=== PATIENT | female | born 1965 | race Caucasian/White ===

== ENCOUNTER → 2017-04-07 12:48 | Outpatient (POV) | payer BC, SELFPAY | PROVIDERS: PCP Internal Medicine | DX: Z00.00 Encounter for general adult medical examination without abnormal findings (principal) ==

== ENCOUNTER → 2017-04-23 09:56 | Outpatient (CLI) | payer BC, SELFPAY ==
[2017-04-23 13:56] LABS: Basophils % 0.8 % (0.1-2.0); Eosinophils # 0.1 K/mm3 (0.0-0.4); Eosinophils % 2.4 % (0.1-12.0); Hematocrit 39.4 % (37.0-47.0); Hemoglobin 12.4 g/dL (12.2-16.2); Lymphocytes # 1.3 K/mm3 (0.7-4.5); Lymphocytes % 34.1 K/mm3 (10-50); Mean Corpuscular HGB Conc 31.4 g/dL (31.8-35.4); Mean Corpuscular Volume 92.3 fl (81-99); Monocytes # 0.3 K/mm3 (0.1-1.0); Monocytes % 7.6 % (1.7-9.3); Neutrophils % 55.2 % (37.0-80.0); Platelet Count 230 K/mm3 (142-424); Red Blood Count 4.27 M/mm3 (4.20-5.40); Red Cell Distribution Width 13.1 % (11.5-17.5); White Blood Count 3.7 K/mm3 (4.8-10.8)
[2017-04-23 15:09] LABS: Alanine Aminotransferase 22 U/L (12-78); Albumin Level 3.7 gm/dL (3.4-5.0); Alkaline Phosphatase 87 U/L (46-116); Anion Gap 11.6 mEq/L (5-15); Aspartate Amino Transferase 15 U/L (15-37); Bilirubin,Total 0.3 mg/dL (0.2-1.0); Blood Urea Nitrogen 16 mg/dL (7-18); Calcium 8.9 mg/dL (8.5-10.1); Carbon Dioxide 31 mmol/L (21.0-32.0); Chloride 104 mmol/L (98-107); Creatinine,Serum 0.78 mg/dL (0.55-1.02); Estimated Glomerular Filt Rate 77 ml/min (>60); Free T4 (Free Thyroxine) 1.02 ng/dl (0.76-1.46); GFR (African American) 93 ML/MIN (>60); Globulin 3.8 gm/dl (1.3-3.2); Glucose 101 mg/dL (74-106); Potassium 4.6 mmoL/L (3.5-5.1); Sodium 142 mmol/L (136-145); Thyroid Stimulating Hormone 2.45 uIU/ml (0.358-3.740); Total Protein,Serum 7.5 gm/dL (6.4-8.2)
== END ==
PROVIDERS: Visit Provider Emergency Medicine
DX: R68.89 Other general symptoms and signs (principal)
CPT/HCPCS: 80053; 84439; 84443; 85025

== ENCOUNTER → 2018-01-04 10:17 | Outpatient (CLI) | payer BC, SELFPAY ==
--- NOTE | 2018-01-04 10:20 | MM_ITS ---
MM Dig screening mamm BI w/CAD ORDERING PHYSICIAN : Luca Ortega MD PATIENT AGE: 52 years GENDER: Female COMPARISON: December 20162014 INDICATION: ITS.REASON: Screening routine screening mammogram. Patient Does taking estrogen supplement. No new complaints. Noncontributory family history. TECHNIQUE: Standard CC and MLO images were obtained. R2 CAD reviewed. FINDINGS: Moderate density breast with no new areas of significant concern. Progressive fatty replacement since 2015 mammogram Today's study show no No dominant mass nor suspicious calcifications either breast. Mild asymmetry with no significant new areas of concern either breast. Bilateral follow-up in one year recommended. IMPRESSION: Stable bilateral mammogram. No study new findings. BI-RADS Category: 1 Negative RECOMMENDED FOLLOW-UP: 1YR 1 YEAR FOLLOW-UP (A letter has been sent to the patient regarding results of the study.)
== END ==
PROVIDERS: PCP Emergency Medicine; Visit Provider Obstetrics & Gynecology
DX: Z12.31 Encounter for screening mammogram for malignant neoplasm of breast (principal)
CPT/HCPCS: 77067

== ENCOUNTER → 2018-04-19 17:05 | Outpatient (CLI) | payer BC, SELFPAY ==
[2018-04-19 18:28] LABS: Basophils % 0.9 % (0.1-2.0); Eosinophils # 0.1 K/mm3 (0.0-0.4); Eosinophils % 1.7 % (0.1-12.0); Hematocrit 38.5 % (37.0-47.0); Hemoglobin 12.7 g/dL (12.2-16.2); Lymphocytes # 1.3 K/mm3 (0.7-4.5); Lymphocytes % 35.4 % (10-50); Mean Corpuscular Hemoglobin 29.9 pg (27.0-31.2); Mean Corpuscular Volume 90.7 fl (81-99); Monocytes # 0.3 K/mm3 (0.1-1.0); Monocytes % 8.5 % (1.7-9.3); Neutrophils # 1.9 K/mm3 (1.8-7.8); Neutrophils % 53.5 % (37.0-80.0); Platelet Count 188 K/mm3 (142-424); Red Blood Count 4.25 M/mm3 (4.20-5.40); Red Cell Distribution Width 13.5 % (11.5-17.5); White Blood Count 3.6 K/mm3 (4.8-10.8)
[2018-04-19 19:41] LABS: Anion Gap 11.4 mEq/L (5-15); Blood Urea Nitrogen 16 mg/dL (7-18); Carbon Dioxide 30 mmol/L (21.0-32.0); Chloride 105 mmol/L (98-107); Creatinine,Serum 0.77 mg/dL (0.55-1.02); Estimated Glomerular Filt Rate 78 ml/min (>60); Free T4 (Free Thyroxine) 1.03 ng/dl (0.76-1.46); GFR (African American) 95 ML/MIN (>60); Glucose 127 mg/dL (74-106); Potassium 4.4 mmoL/L (3.5-5.1); Sodium 142 mmol/L (136-145); Thyroid Stimulating Hormone 1.53 uIU/ml (0.358-3.740)
== END ==
PROVIDERS: Visit Provider Emergency Medicine
DX: I10 Essential (primary) hypertension (principal)
CPT/HCPCS: 80048; 84439; 84443; 85025

== ENCOUNTER → 2018-05-05 08:58 | Outpatient (CLI) | payer BC, SELFPAY ==
--- NOTE | 2018-05-05 09:02 | US_ITS ---
US thyroid HISTORY: Trouble swallowing, thyroid nodule ITS.REASON: nodule ORDERING PHYSICIAN: Thomas Woods MD PATIENT AGE: 52 years Comparison: None FINDINGS: Right lobe: 4.7 x 1.6 x 1.6 cm. There is coarse echogenicity. A 4 mm hypoechoic nodule is present centrally. No suspicious dominant nodules evident Left lobe: 4.7 x 1.5 x 1.3 cm. A 6 x 7 mm hypoechoic nodule is present along the lower pole. Isthmus: Unremarkable IMPRESSION: Enlarged thyroid gland with heterogeneous echogenicity small bilateral benign-appearing nodules
--- NOTE | 2018-05-05 09:02 | FL_ITS ---
EXAM: Barium swallow/esophagram. INDICATION: ITS.REASON: dysphagia ORDERING PHYSICIAN: Thomas Woods MD PATIENT AGE: 52 years COMPARISON: None TECHNIQUE: In the upright position the patient was observed to swallow barium in both the AP and lateral view. The cervical esophagus was examined under fluoroscopy with images obtained. The patient was then placed prone in the right anterior oblique position and was observed to swallow barium with Valsalva technique . FLUOROSCOPY TIME: 41 seconds FINDINGS: There was no evidence of aspiration. There was normal peristalsis. No filling defects or mucosal abnormalities. No masses or strictures. No hiatal hernia evident IMPRESSION: Negative barium swallow.
== END ==
PROVIDERS: PCP Emergency Medicine; Visit Provider Emergency Medicine
DX: E04.1 Nontoxic single thyroid nodule (principal); R13.10 Dysphagia, unspecified
CPT/HCPCS: 74220; 76536

== ENCOUNTER → 2018-05-19 07:59 | Outpatient (CLI) | payer BC, SELFPAY ==
--- NOTE | 2018-05-19 08:01 | CT_ITS ---
CT chest wo con HISTORY: Pulmonary nodule follow-up ITS.REASON: follow up on pulmonary nodules ORDERING PHYSICIAN: Thomas Woods MD PATIENT AGE: 52 years COMPARISON: 11/08/2017 Technique: Axial images obtained following the administration of 75 mL of Optiray 350 . Sagittal, and coronal reformatted images are also generated and reviewed. All CT scans at the facility use one or more dose reduction, viz: automated exposure control, ma/kV adjustment per patient size (including targeted exams where dose is matched to indication, i.e. head), or iterative reconstruction technique. FINDINGS: No mediastinal or hilar mass or adenopathy. There are mild biapical fibrotic changes. There is a noncalcified 4 mm nodule in the right apex posteriorly not significantly changed. Volume loss is present in the right middle lobe unchanged. Calcified granuloma right lower lobe unchanged there is a 5 mm noncalcified nodule in the right minor fissure unchanged. A 4 mm noncalcified nodule noted in the right lower lobe laterally unchanged. On the left there are fibrotic changes within the left lower lobe and lingula. Scattered small nodes are present in the axilla. Calcified nodes are present in the right hilum. Upper abdominal images are unremarkable. IMPRESSION: 1. Overall no significant change with no acute finding. 2. No change in the right-sided pulmonary nodules. Consider 12 month follow-up
== END ==
PROVIDERS: PCP Emergency Medicine; Visit Provider Emergency Medicine
DX: R91.1 Solitary pulmonary nodule (principal)
CPT/HCPCS: 71250

== ENCOUNTER → 2018-07-22 12:04 | Outpatient (CLI) | payer BC, SELFPAY ==
[2018-07-22 14:56] LABS: Free T4 (Free Thyroxine) 1.15 ng/dl (0.76-1.46); Thyroid Stimulating Hormone 1.58 uIU/ml (0.358-3.740)
[2018-07-23 18:04] LABS: Thyroid Peroxidase Antibodies 65 IU/mL (0-34)
[2018-07-25 03:11] LABS: Calcitonin <2.0 pg/mL (0.0-5.0)
[2018-07-27 06:22] LABS: Thyroid Stimulating Immunoglob <0.10 IU/L (0.00-0.55)
== END ==
PROVIDERS: Visit Provider Otolaryngology
DX: E04.1 Nontoxic single thyroid nodule (principal)
CPT/HCPCS: 36415; 82308; 84439; 84443; 84445; 86376

== ENCOUNTER → 2018-09-22 14:04 | Outpatient (CLI) | payer BC, SELFPAY ==
--- NOTE | 2018-09-22 14:06 | CA_ITS ---
APPROVED REPORT Bilateral Lower Extremity Venous Study for [employer]: MARISOL Indications Lower Extremity Pain: Right Lower Extremity Edema: Right Varicose Veins edema/right leg pain Risk Factors Hormone replacement therapy x several years. Patient had vein stripping of the right lower extremity approximately 1 year ago. Vein Imaging CFV (R): compressive, spontaneous, phasic, augmentation FEM (R): compressive, spontaneous, phasic, augmentation POP (R): compressive, spontaneous, phasic, augmentation PTV (R): compressive, spontaneous, phasic, augmentation GSV (R): compressive, spontaneous, phasic, augmentation Peroneals (R):Compressible GAS (R): Compressible Conclusion No evidence of DVT or superficial thrombophlebitis in the veins scanned of the right lower extremity. Electronically signed by : Ted Oconnor MD 09/22/2018 19:19:29
== END ==
PROVIDERS: PCP Emergency Medicine; Visit Provider Internal Medicine Cardiovascular Disease
DX: M79.604 Pain in right leg (principal); I10 Essential (primary) hypertension; R60.0 Localized edema
CPT/HCPCS: 93971

== ENCOUNTER → 2018-11-08 14:49 | Outpatient (CLI) | payer BC, SELFPAY ==
--- NOTE | 2018-11-08 14:50 | US_ITS ---
PROCEDURE: US THYROID CLINICAL INDICATION: thyroiditis COMPARISON: THY US thyroid from 05/05/2018 FINDINGS: Right lobe: Measures 1.7 x 4.6 x 1.4 centimeters with stable mild inhomogeneous echogenic appearance. The small mid hypoechoic nodule measures 3.3 millimeters and is stable. However today study describes 2 other nodules, 1 of which at the medial mid right thyroid lobe is isoechoic compared to the thyroid tissue with fairly well-defined margins without acoustic enhancement or shadowing and measures 7.2 by 6.3 millimeters in transverse diameter and height respectively. Also noted is a mid to lower posterior isoechoic nodule measuring 6.9 x 4.5 millimeters. Left lobe: Measures 1.4 x 4.5 x 1.2 centimeters stable mild inhomogeneous echogenic appearance. There is a stable posterior lower pole hypoechoic nodule measuring 6.2 x 5.8 millimeters respectively with smooth margins and without enhancement or shadowing. The remainder of the left thyroid lobe is normal and stable. Isthmus: 1.8 millimeters. Additional findings: IMPRESSION: Posterior left thyroid lobe nodule is stable and could be pedunculated thyroid nodule or parathyroid nodule. Right thyroid lobe shows punctate benign stable hypoechoic nodule in the midportion however there are 2 other solid nodules not described on the prior report, the left posterior lower pole nodule on the right could be pedunculated thyroid nodule or also related to parathyroid gland. These nodules are TR category 3, mildly suspicious and suggest follow-up at 6-12 months. Dictated by: Fransico Case 11/08/2018 16:06 Electronically signed by Fransico Case in [place] 11/08/2018 16:06
== END ==
PROVIDERS: PCP Emergency Medicine; Visit Provider Otolaryngology
DX: E06.3 Autoimmune thyroiditis (principal)
CPT/HCPCS: 76536

== ENCOUNTER → 2019-01-09 13:24 | Outpatient (CLI) | payer BC, SELFPAY ==
--- NOTE | 2019-01-09 13:26 | MM_ITS ---
PROCEDURE: MM DIG SCREENING MAMM BI W/CAD CLINICAL INDICATION: screening There is no personal or family history of breast cancer COMPARISON: [facility] DIG MAMM-SCREEN TASHA from 12/23/2015 [facility] DIG MAMM-SCREEN TASHA W/CAD from 12/24/2016 [facility] MM Dig screening mamm BI w/CAD from 01/04/2018 TECHNIQUE: Standard CC and MLO images were obtained. R2 CAD reviewed. FINDINGS: Scattered fibroglandular densities are seen throughout both breasts. There is slightly asymmetrically increased glandular elements in the central portion of the right breast, this is stable from previous studies. There is no suspicious lesion and no suspicious microcalcifications. IMPRESSION: Moderate diffuse breast density with no suspicious lesions seen BI-RAD Category: 1 Negative FOLLOW-UP: 1YR 1 Year Follow-up (A letter has been sent to the patient regarding results of the study.) Dictated by: Dr. Eric Domingo MD 01/10/2019 14:[address] Eric Domingo MD in [place] 01/10/2019 14:13
--- NOTE | 2019-01-09 13:26 | XR_ITS ---
PROCEDURE: XR DEXA AXIAL SKELETON CLINICAL HISTORY: SCREENING COMPARISON: No exams were available for comparison FINDINGS: L1-L4 density is 1.377 grams/centimeters sq with a T-score of 1.6. This is normal. Left femoral neck density is 0.998 grams/centimeters sq with a T-score -0.3 which is normal. IMPRESSION: Normal bone density with low fracture risk. Suggest follow-up exam January 2021 Dictated by: Ted Oconnor MD 01/09/2019 17:41 Electronically signed by Ted Oconnor MD in [place] 01/09/2019 17:41
== END ==
PROVIDERS: PCP Emergency Medicine; Visit Provider Obstetrics & Gynecology
DX: Z12.31 Encounter for screening mammogram for malignant neoplasm of breast (principal); Z13.820 Encounter for screening for osteoporosis; Z78.0 Asymptomatic menopausal state
CPT/HCPCS: 77067; 77080

== ENCOUNTER → 2019-02-17 12:56 | Outpatient (CLI) | payer BC, SELFPAY ==
--- NOTE | 2019-02-17 13:26 | US_ITS ---
PROCEDURE: US THYROID CLINICAL INDICATION: goiter Follow-up thyroid nodules COMPARISON: No exams were available for comparison FINDINGS: Right lobe: 4.4 x 1.2 x 2.2 cm. 3 mm hypoechoic nodule mid polar region unchanged, 9 mm isoechoic nodule mid polar region not significantly changed. Left lobe: 4.3 x 1.6 x 1.3 cm. Hypoechoic 7 mm nodule along the posterior aspect of the left lobe unchanged Isthmus: Additional findings: IMPRESSION: Overall no change in the bilateral thyroid nodules TR category 3. Suggest continued 6-12 month follow-up. Mildly enlarged thyroid gland. Dictated by: Ted Oconnor MD 02/18/2019 09:27 Electronically signed by Ted Oconnor MD in [place] 02/18/2019 09:27
[2019-02-17 14:35] LABS: Free T4 (Free Thyroxine) 1.11 ng/dl (0.76-1.46); Thyroid Stimulating Hormone 1.58 uIU/ml (0.358-3.740)
== END ==
PROVIDERS: PCP Emergency Medicine; Visit Provider Otolaryngology
DX: E04.9 Nontoxic goiter, unspecified (principal)
CPT/HCPCS: 36415; 76536; 84439; 84443

== ENCOUNTER → 2019-06-14 14:01 | Outpatient (CLI) | payer BC, SELFPAY ==
--- NOTE | 2019-06-14 14:01 | CT_ITS ---
PROCEDURE: CT CHEST WO CON CLINICAL INDICATION: 12 mth f/u Follow-up pulmonary nodule COMPARISON: AGCHEST CT angio chest from 11/08/[address] chest wo con from 05/19/2018 TECHNIQUE: Axial images obtained with sagittal and coronal reformats. All CT scans at the facility use one or more dose reduction, viz: automated exposure control, ma/kV adjustment per patient size (including targeted exams where dose is matched to indication, i.e. head), or iterative reconstruction technique. FINDINGS: HEART AND MEDIASTINAL STRUCTURES: There is mild focal protrusion along the lung right lateral wall of the ascending aorta near the apex of the aortic arch. This could even be due to partial volume averaging artifact from an underlying small lymph node and is probably unchanged compared to 11/08/2017 CT angiogram. No mediastinal or hilar mass or adenopathy. LUNGS AND PLEURAL SPACES: There are scattered small pulmonary nodular opacities which do not appear significantly change including a 4 mm nodule right upper lobe image 15, 4 mm nodule right upper lobe image 20, 4 mm nodule in the right major fissure image 34, 4 mm nodule right lower lobe subpleural image 49. There are calcified nodules also noted. No new nodules are apparent. No effusions or infiltrates. There is some scattered areas of scarring. There is volume loss of the right middle lobe which is unchanged. Calcified nodes are present in the right hilum for her BONY STRUCTURES: No acute bony abnormalities apparent. UPPER ABDOMEN: There are few small lymph nodes in the epigastric region not significantly changed. ADDITIONAL FINDINGS: No other significant abnormalities. IMPRESSION: Overall stable CT appearance of the chest. There are multiple small right-sided pulmonary nodules as well as calcified nodules along with areas of scarring which appear stable. Dictated by: Ted Ocnonor MD 06/15/2019 09:41 Electronically signed by Ted Oconnor MD in [place] 06/15/2019 09:41
== END ==
PROVIDERS: PCP Emergency Medicine; Visit Provider Emergency Medicine
DX: R91.1 Solitary pulmonary nodule (principal)
CPT/HCPCS: 71250

== ENCOUNTER → 2019-08-31 13:10 | Outpatient (CLI) | payer BC, SELFPAY ==
--- NOTE | 2019-08-31 13:10 | US_ITS ---
PROCEDURE: US THYROID CLINICAL INDICATION: goiter Follow-up thyroid nodules COMPARISON: US THYROID from 02/17/2019 FINDINGS: Right lobe: 1.7cm x 4.3cm x 1.4. A 10 mm isoechoic nodules present in the mid polar region solid-appearing unchanged. Ill-defined nodule noted in the lower pole at 8 mm unchanged Left lobe: 1.5cm x 4.6cm x 1.3. Hypoechoic 5 mm nodule lower pole unchanged and is along the posterior aspect of the thyroid gland and may be due to a parathyroid gland. Isthmus: Additional findings: IMPRESSION: Overall no change in the mildly enlarged thyroid gland with vague multiple nodules on the right and hypoechoic nodule along the posterior aspect of the left lobe possibly due to parathyroid gland overall unchanged Dictated by: Ted Oconnor MD 09/01/2019 12:14 Electronically signed by Ted Oconnor MD in [place] 09/01/2019 12:14
[2019-08-31 15:56] LABS: Free T4 (Free Thyroxine) 0.94 ng/dl (0.78-2.19)
[2019-08-31 16:10] LABS: Thyroid Stimulating Hormone 1.61 uIU/mL (0.465-4.68)
== END ==
PROVIDERS: PCP Emergency Medicine; Visit Provider Otolaryngology
DX: E04.9 Nontoxic goiter, unspecified (principal)
CPT/HCPCS: 36415; 76536; 84439; 84443

== ENCOUNTER → 2020-01-22 13:34 | Outpatient (CLI) | payer BC, SELFPAY ==
--- NOTE | 2020-01-22 13:35 | MM_ITS ---
PROCEDURE: MM DIG SCREENING MAMM BI W/CAD Digital Breast Tomosynthesis Included CLINICAL INDICATION: screening xmg There is no personal or family history of breast cancer. COMPARISON: MG [facility] DIG MAMM-SCREEN TASHA W/CAD from 12/24/2016 [facility] MM Dig screening mamm BI w/CAD from 01/04/2018 MG MM DIG SCREENING MAMM BI W/CAD from 01/09/2019 TECHNIQUE: Standard CC and MLO images and 3D Tomosynthesis was obtained. R2 CAD reviewed. FINDINGS: Mild scattered fibroglandular densities are seen throughout both breasts. There are no CAD markers. However there is a questionable area of architectural distortion just deep the nipple left breast best appreciated on the sanya CC views. There is slightly more irregularity of the borders of this density than on the previous exams. Recommend the patient return for spot compression views and ultrasound additional evaluation. There are no suspicious microcalcifications. IMPRESSION: Fibrofatty parenchyma with possible developing architectural distortion left breast BI-RAD Category: 0 Need Additional Imaging Evaluation FOLLOW-UP: IMM Immediate Follow-up Recommended (A letter has been sent to the patient regarding results of the study.) Dictated by: Dr. Eric Domingo MD 01/24/2020 12:53 Dr. Eric Domingo MD in [place] 01/24/2020 12:53
== END ==
PROVIDERS: PCP Emergency Medicine; Visit Provider Obstetrics & Gynecology
DX: Z12.31 Encounter for screening mammogram for malignant neoplasm of breast (principal)
CPT/HCPCS: 77063; 77067

== ENCOUNTER → 2020-02-05 13:27 | Outpatient (CLI) | payer BC, SELFPAY ==
--- NOTE | 2020-02-05 13:27 | MM_ITS ---
PROCEDURE: MM DIG MAMM DX UNILAT LT CAD Digital Breast Tomosynthesis Included CLINICAL INDICATION: Diagnostic mamm- abnormal mamm COMPARISON: [facility] MM Dig screening mamm BI w/CAD from 01/04/2018 MG MM DIG SCREENING MAMM BI W/CAD from 01/09/2019 MG MM DIG SCREENING MAMM BI W/CAD from 01/22/2020 TECHNIQUE: Spot-compression MLO and CC views were obtained along with a 90 degree lateral view FINDINGS: The spot compression views lessen concern of the possible lesion. Particular the spot CC view shows the area to be almost completely press out. Ultrasound performed the same date showed no abnormality throughout the breast. Recommend the patient continue with yearly screening mammography IMPRESSION: Negative problem solving views BI-RAD Category: 1 Negative FOLLOW-UP: 1YR 1 Year Follow-up (A letter has been sent to the patient regarding results of the study.) Dictated by: Dr. Eric Domingo MD 02/05/2020 14:42 Dr. Eric Domingo MD in [place] 02/05/2020 14:42
== END ==
PROVIDERS: PCP Emergency Medicine; Visit Provider Obstetrics & Gynecology
DX: R92.8 Other abnormal and inconclusive findings on diagnostic imaging of breast (principal)
CPT/HCPCS: 76641; 77061; 77065; G0279

== ENCOUNTER 2020-02-05 14:25 | Emergency (ER) | payer BC, SELFPAY ==
[2020-02-05 14:47] VITALS: BP 133/75; PULSE 72; RESP 19; TEMP 36.7; O2SAT 98; BMI 32.8
--- NOTE | 2020-02-05 14:54 | XR_ITS ---
PROCEDURE: XR HAND RT MIN 3V CLINICAL INDICATION: INJURY COMPARISON: No exams were available for comparison FINDINGS: No fracture or dislocation. No lytic or blastic change. There is normal mineralization. The joint spaces are well-preserved. There is moderate spurring and narrowing of the IP joint of the thumb and minor narrowing of the DIP joints of all of fingers. There is mild soft tissue swelling of the index middle and ring finger. There are no foreign bodies. There is narrowing and sclerosis and spurring of the 1st carpometacarpal joint. Other findings:None. IMPRESSION: Mild osteoarthritic changes of the fingers and some particularly at the base of the thumb, mild soft tissue swelling of the fingers as described but no acute fracture is seen Dictated by: Dr. Eric Domingo MD 02/05/2020 15:15 Dr. Eric Domingo MD in 02/05/2020 15:15
[2020-02-05 14:55] VITALS: BP 133/75; PULSE 72; RESP 17; TEMP 36.7; O2SAT 98
--- NOTE | 2020-02-05 15:08 | HMH.EDUTC ---
[facility] [place] Disposition Clinical Impression: Sprain and strain of right hand Disposition: Home, Self-Care Condition on Discharge: Good Instructions: DI for Hand Pain Additional Instructions: Rest the extremity, apply ice for 15 minutes as tolerated three or four times per day, Elevate the extremity as tolerated while you are resting. Take ibuprofen for pain. I sent in a prescription to your pharmacy. Follow up with Dr. Beaver (orthopedics). Sometimes there can be fractures that don't show up well on the first set of x-rays. So, you should follow up if you continue to have symptoms. I put in a referral but you need to call her office and schedule an appointment. Follow up with your regular doctor. GO TO THE ER FOR ANY WORSENING SYMPTOMS Prescriptions: Ibuprofen [Ibuprofen 600mg Tablet] 600 mg PO Q6HP PRN #30 tab PRN Reason: Mild Pain Transmission Status: Received by [id number] Referrals: Thomas Woods MD [Primary Care Provider] - Daphne Beaver MD [Physician] - Time of Disposition: 15:36 Medical Decision Making - Medical Records Medical records reviewed: No: I reviewed the patient's medical records. - Nathaniel Inquiry Pt receiving controlled substance: No Vital Signs: 02/05/20 14:47 02/05/20 14:55 Temperature 98.0 F 98.0 F Temperature Source Oral Pulse Rate 72 Pulse Rate [Left] 72 Respiratory Rate 19 17 Blood Pressure 133/75 Blood Pressure [Right Arm] 133/75 Blood Pressure Mean [Right Arm] 94 Blood Pressure Source [Right Arm] Automatic Cuff Blood Pressure Position [Right Arm] Sitting 02 Sat by Pulse Oximetry 98 Oxygen Delivery Method Room Air - Radiology Data #1 Image(s): Hand Image Reviewed: Yes I reviewed the patient's radiology image, Yes I have reviewed radiologist's interpretation Preliminary Findings: No Fracture Seen PROCEDURE: XR HAND RT MIN 3V CLINICAL INDICATION: INJURY COMPARISON: No exams were available for comparison FINDINGS: No fracture or dislocation. No lytic or blastic change. There is normal mineralization. The joint spaces are well-preserved. There is moderate spurring and narrowing of the IP joint of the thumb and minor narrowing of the DIP joints of all of fingers. There is mild soft tissue swelling of the index middle and ring finger. There are no foreign bodies. There is narrowing and sclerosis and spurring of the 1st carpometacarpal joint. Other findings:None. IMPRESSION: Mild osteoarthritic changes of the fingers and some particularly at the base of the thumb, mild soft tissue swelling of the fingers as described but no acute fracture is seen Dictated by: Dr. Eric Domingo MD 02/05/2020 15:15 Dr. Eric Domingo MD in [place] 02/05/2020 15:15 [facility] [place] HPI - General Stated complaint: right hand twisted fingers Time Seen by Provider: 02/05/20 15:08 Mode of Arrival: Ambulatory Source of Information: Patient Limitations: No Limitations Description of Symptoms (Recalled from Triage Doc. by RN): right finger pain- 2nd and 3rd digit. Pt states that she got them twisted in a dog collar last night HEENT Symptoms (Recalled from RN notes): No Resp Symptoms (Recalled from RN notes): No Skin Symptoms (Recalled from RN notes): No MS Symptoms (Recalled from RN notes): Yes Functional Status (Recalled from RN notes): wnl - History of Present Illness Provider Complaint: She states that last night she was trying to hold on to her dog when the dog twisted and caused her to twist her index and middle finger. Since then she has had pain of her right index and middle fingers. - Related Data Home Medications Medication Instructions Recorded Confirmed bupropion HCl 75 mg tablet 75 mg PO DAILY each 10/05/19 10/05/19 Previous Rx's Medication Instructions Recorded estradiol 1 mg tablet 1 mg PO DAILY #30 tab 11/27/19 Ibuprofen [Ibuprofen 600mg 600 mg PO Q6HP PRN #30 tab 02/05/20 Tablet] Allergies A
== END 2020-02-05 15:37 | disposition home or self-care (01) ==
PROVIDERS: Emergency Provider Nurse Practitioner Family; PCP Emergency Medicine
DX: S63.91XA Sprain of unspecified part of right wrist and hand, initial encounter (principal); X50.1XXA Overexertion from prolonged static or awkward postures, initial encounter; Y93.K1 Activity, walking an animal; Y92.89 Other specified places as the place of occurrence of the external cause; I10 Essential (primary) hypertension; E78.5 Hyperlipidemia, unspecified; F33.1 Major depressive disorder, recurrent, moderate; Z79.899 Other long term (current) drug therapy
CPT/HCPCS: 73130; 99201

== ENCOUNTER 2020-05-13 13:16 | Emergency (ER) | payer BC, SELFPAY ==
[2020-05-13 13:35] VITALS: BP 118/69; PULSE 77; RESP 19; TEMP 36.8; O2SAT 99; BMI 30.9
--- NOTE | 2020-05-13 13:50 | HMH.EDUTC ---
[facility] [place] Disposition Clinical Impression: Exposure to COVID-19 virus Disposition: Home, Self-Care Condition on Discharge: Good Instructions: Preventing the Spread of Coronavirus Discharge Instructions Additional Instructions: Drink plenty of fluids. Take tylenol or ibuprofen for pain or fever. Follow up with your regular doctor. GO TO THE ER FOR ANY WORSENING SYMPTOMS Referrals: Thomas Woods MD [Primary Care Provider] - Time of Disposition: 13:57 Medical Decision Making - Medical Records Medical records reviewed: No: I reviewed the patient's medical records. - Nathaniel Inquiry Pt receiving controlled substance: No Vital Signs: 05/13/20 13:35 05/13/20 14:01 Temperature 98.3 F 98 F Temperature Source Oral Pulse Rate 80 Pulse Rate [Right] 77 Respiratory Rate 19 16 Blood Pressure 118/76 Blood Pressure [Right Arm] 118/69 Blood Pressure Mean [Right Arm] 85 Blood Pressure Source [Right Arm] Automatic Cuff Blood Pressure Position [Right Arm] Sitting 02 Sat by Pulse Oximetry 99 Oxygen Delivery Method Room Air Orders (Tests/Meds): ORDERS Category Date Time Status Covid-19 Nasal PCR ([facility]) Routine Lab 05/13/20 13:15 Received [facility] [place] HPI - General Stated complaint: Covid Test Time Seen by Provider: 05/13/20 13:50 Mode of Arrival: Ambulatory Source of Information: Patient Limitations: No Limitations Description of Symptoms (Recalled from Triage Doc. by RN): pt is asymptomatic and no exposure to covid. pt states she wants tested for covid. HEENT Symptoms (Recalled from RN notes): No Resp Symptoms (Recalled from RN notes): No Skin Symptoms (Recalled from RN notes): No MS Symptoms (Recalled from RN notes): No Functional Status (Recalled from RN notes): na - History of Present Illness Provider Complaint: She is here after being exposed to covid last week. She denies any symptoms so far. - Related Data Previous Rx's Medication Instructions Recorded estradiol 1 mg tablet 1 mg PO DAILY #30 tab 11/27/19 Ibuprofen [Ibuprofen 600mg 600 mg PO Q6HP PRN #30 tab 02/05/20 Tablet] bupropion HCl 75 mg tablet See Rx Instructions .ROUTE 04/09/20 .COMPLEX #90 tablet Allergies Allergy/AdvReac Type Severity Reaction Status Date / Time No Known Allergies Allergy Verified 05/13/20 13:38 - Worker's Comp Is this a Worker's Comp case?: No [facility] History - Hepatitis A Screen Drug use history?: No High risk sexual behaviors?: No History of sexually transmitted infection?: No Currently employed?: No Childcare worker?: No Do you have indoor plumbing?: Yes Do you have electricity?: Yes Attestation statement:: This patient has been screened for Hepatitis A risk factors. I have reviewed the patient's past medical history: Yes Medical History: Reports:: Depression, Hyperlipidemia, Hypertension Denies:: Diabetes Mellitus Type 1, Diabetes Mellitus Type 2 Other Medical History: Reports: Thyroid Disease, Other Comment: HYPERTENSION. HYPERLIPIDEMIA. HYPERCHOLESTEROLEMIA declinecd flu and pneumonia. OBSTRUCTIVE SLEEP APNEA. HIRSUTISM Other Surgeries: Yes: Appendectomy, Colonoscopy, Hysterectomy-Total, Other Amputation: No Fractures: No Comment: EXP. LAP, APPY, OV. CYST REMOVAL (? SIDE)---DR. GARCIA---1996. EX. LAP., P/W, ANIL (ADENOMYOSIS AND LEIOMYOMATA), BSO (LT CYSTIC TERATOMA), EXCISION OF VAG. WALL MASS (LEIOMYOMA)---2014 - Social History Smoking Status: Never smoker Alcohol Intake: never Alcohol Intake Frequency:: other Substance Use Type: denies use Occupational Status: other - Psychiatric History Pschychiatric History:: Reports:: Depression Family Hx:: Heart Attack, Coronary Artery Disease, Hypertension Comment: 1996, AMAN, MALE. ?, SAB @ [employer] ROS Obtained: Yes All systems reviewed & no additional complaints - Constitutional Constitutional: Reports system reviewed and no additional complaints, except as docu - Eyes Eyes: Reports s
[2020-05-13 14:01] VITALS: BP 118/76; PULSE 80; RESP 16; TEMP 36.6
== END 2020-05-13 14:04 | disposition home or self-care (01) ==
PROVIDERS: Emergency Provider Nurse Practitioner Family; PCP Emergency Medicine
DX: Z20.822 Contact with and (suspected) exposure to COVID-19 (principal); I10 Essential (primary) hypertension; E78.5 Hyperlipidemia, unspecified; F33.1 Major depressive disorder, recurrent, moderate; E03.9 Hypothyroidism, unspecified; Z79.899 Other long term (current) drug therapy
CPT/HCPCS: 99202; G0463; U0003

== ENCOUNTER → 2021-02-04 12:49 | Outpatient (CLI) | payer BC, SELFPAY ==
--- NOTE | 2021-02-04 13:12 | MM_ITS ---
PROCEDURE INFORMATION: Exam: MG Bilateral Screening 3D Mammography Exam date and time: 02/04/2021 1:12 PM Age: 55 years old Clinical indication: Screening mammogram TECHNIQUE: Imaging protocol: Bilateral screening tomosynthesis and 2D mammography including computer-aided detection (CAD) when performed. COMPARISON: 1. MG MM DIG MAMM DX UNILAT LT CAD 02/05/2020 1:47 PM 2. MG MM DIG SCREENING MAMM BI W/CAD 01/22/2020 1:39 PM 3. MG MM DIG SCREENING MAMM BI W/CAD 01/09/2019 1:44 PM 4. MG [facility] MM Dig screening mamm BI w/CAD 01/04/2018 10:42 AM FINDINGS: MAMMOGRAPHY: Breast composition: There are scattered areas of fibroglandular density. Mass: None. Architectural distortion: No new or suspicious architectural distortion. Calcifications: No new or suspicious calcifications are present Asymmetric density: No new or suspicious asymmetric density is present Skin thickening: None. Axillary adenopathy: None. IMPRESSION: No mammographic evidence of malignancy. Recommend annual screening mammography unless otherwise clinically indicated. ASSESSMENT: BI-RADS category 1: Negative
== END ==
PROVIDERS: PCP Emergency Medicine; Visit Provider Obstetrics & Gynecology
DX: Z12.31 Encounter for screening mammogram for malignant neoplasm of breast (principal)
CPT/HCPCS: 77063; 77067

== ENCOUNTER → 2021-11-06 12:46 | Outpatient (CLI) | payer BC, SELFPAY ==
--- NOTE | 2021-11-06 13:17 | CA_ITS ---
APPROVED REPORT EXAM: Comprehensive 2D, Doppler, and color-flow Echocardiogram Patient Assessment Coordinator: JASMYN Alfred, RVS Ht: 5 ft 4 in Wt: 182lbs BSA: 1.88 BP: 119/72 mmHg Indications: Edema, MILLA, HLD, HTN 2D Dimensions Aortic Root 2.39 cm LA Volume 35.20 mL Left Atrium 2.76 cm LA Volume Index 18.70 mL/m2 (M/F) 16-34 LVOT 1.76 cm (M/F) 1.5-2.5 M-Mode Dimensions RVDd 2.01 cm (0.9-2.6) LA Diam 3.40 cm (1.9-4.0) LVDd 4.11 cm (3.5-5.7) Ao Diam 2.93 cm (2.0-3.7) LVDs 2.64 cm (3.5-5.7) IVSd 0.74 cm (0.6-1.1) PWd 0.60 cm (0.6-1.1) EF (Teich) 65.70% EPSs 0.40 cm FS 35.80% EDV (Teich) 74.70 mL TAPSE 1.87 (<1.7) ESV (Teich) 25.60 mL LV Diastology E Decel Time 317.00 (160-240 msec) E/A Ratio 1.35 MED E' 10.50 (< 7 cm/sec) MED A' 8.60 cm/s E'/MED E' Ratio 6.04 (>14) LAT E' 12.10 (<10 cm/sec) LAT A' 6.50 cm/s E/LAT E' Ratio 5.24 (>14) Aortic Valve LVOT Max 82.00 (70-110 cm/s) LVOT VTI 18.02 cm AoV Peak Arjun. 114.00 (50-130 cm/s) AO Peak GR. 5.20 mmHg AO Mean GR. 2.70 (<5 mmHg) AO VTI 24.49 (18-25 cm) JENNIFER (VTI) 1.79 (2.5-4.5 cm2) Mitral Valve MV A Velocity 47.00 (40-130 cm/s) E/A Ratio 1.35 MV Decel. Time 317.00 (160-240 ms) Pulmonary Valve PV Peak Velocity 79.00 (50-150 cm/s) AK End VMAX 143.00 cm/s Tricuspid Valve TR P. Velocity 185.00 cm/s RAP Estimate 10.00 mmHg RVSP 23.70 mmHg Left Ventricle Left atrium is normal size left ventricle is normal size estimated ejection fraction 55% with no regional wall motion abnormality, diastolic parameters are within normal range. Right Ventricle Right atrium and right ventricle are normal size and contractility. Aortic Valve Aortic valve is minimally thickened and fibrosed there is no aortic stenosis or aortic insufficiency. Mitral Valve Mitral valve grossly normal, there is trace mitral regurgitation. Tricuspid Valve Tricuspid grossly normal, there is trace tricuspid regurgitation, calculated right ventricular systolic pressure 23 mmHg. Pulmonic Valve Pulmonic valve is poorly visualized. Great Vessels Aortic root is normal size. Inferior vena cava is normal size with normal inspiratory collapse. Pericardium No significant pericardial effusion noted. Conclusion 1. Normal left ventricular size preserved left ventricular systolic function, estimated ejection fraction 55% with no regional wall motion abnormality, diastolic parameters are within normal range. 2. Trace mitral and tricuspid regurgitation, calculated right ventricular systolic pressure is 23 mmHg. 3. No significant pericardial effusion noted. 4. Inferior vena cava is normal size with normal inspiratory collapse. Electronically signed by : Cricket Esteban MD 11/07/2021 14:36:28
== END ==
PROVIDERS: PCP Emergency Medicine; Visit Provider Physician Assistant
DX: R60.0 Localized edema (principal); I10 Essential (primary) hypertension; E78.49 Other hyperlipidemia; G47.33 Obstructive sleep apnea (adult) (pediatric); E66.9 Obesity, unspecified; Z68.31 Body mass index [BMI] 31.0-31.9, adult
CPT/HCPCS: 93306

== ENCOUNTER → 2022-02-05 14:56 | Outpatient (CLI) | payer BC, SELFPAY ==
--- NOTE | 2022-02-05 14:56 | MM_ITS ---
PROCEDURE INFORMATION: Exam: MG Bilateral Screening 3D Mammography Exam date and time: 02/05/2022 2:58 PM Age: 56 years old Clinical indication: Screening. No family history of breast cancer. TECHNIQUE: Imaging protocol: Bilateral Screening tomosynthesis and 2D mammography including computer-aided detection (CAD) when performed. COMPARISON: 1. MG MM DIG SCREENING MAMM BI W/CAD 02/04/2021 1:08 PM 2. MG MM DIG MAMM DX UNILAT LT CAD 02/05/2020 1:47 PM 3. MG MM DIG SCREENING MAMM BI W/CAD 01/22/2020 1:39 PM 4. MG MM DIG SCREENING MAMM BI W/CAD 01/09/2019 1:44 PM FINDINGS: MAMMOGRAPHY: Breast composition: There are scattered areas of fibroglandular density. Mass: None. Architectural distortion: None. Calcifications: No suspicious calcifications. Asymmetric density: No developing asymmetry. Skin thickening: None. Axillary adenopathy: None. IMPRESSION: No mammographic evidence of malignancy. Annual screening is recommended unless otherwise clinically indicated. ASSESSMENT: BI-RADS Category 1: Negative
== END ==
PROVIDERS: PCP Emergency Medicine; Visit Provider Obstetrics & Gynecology
DX: Z12.31 Encounter for screening mammogram for malignant neoplasm of breast (principal)
CPT/HCPCS: 77063; 77067

== ENCOUNTER → 2022-03-20 15:24 | Outpatient (CLI) | payer BC, SELFPAY | PROVIDERS: PCP Nurse Practitioner Family; Visit Provider Nurse Practitioner Family | DX: R35.0 Frequency of micturition (principal) | CPT/HCPCS: 87086 ==

== ENCOUNTER → 2022-04-30 23:20 | Outpatient (CLI) | payer BC, SELFPAY | PROVIDERS: PCP Nurse Practitioner Family; Visit Provider Nurse Practitioner Family | DX: N39.0 Urinary tract infection, site not specified (principal) | CPT/HCPCS: 87086 ==

== ENCOUNTER 2023-06-15 09:49 | Inpatient (IN) | payer SELFPAY ==
[2023-06-15] VITALS (8 sets, daily range): BP systolic 115–151; BP diastolic 73–88; PULSE 54–99; RESP 16–18; TEMP 36.7–36.9; O2SAT 96–98; BMI 31.8; BMI 29.0
--- NOTE | 2023-06-15 09:58 | CT_ITS ---
FINAL REPORT CLINICAL HISTORY: abd pain, initially LLQ now epigastric, n/v COMPARISON: None FINDINGS: CT OF THE ABDOMEN AND PELVIS WITH CONTRAST Axial CT images of the abdomen and pelvis were obtained after the administration of IV contrast. Coronal reformatted images were also obtained and reviewed. This study was performed with techniques to keep radiation doses as low as reasonably achievable (ALARA). Individualized dose reduction techniques using automated exposure control or adjustment of mA and/or kV according to the patient's size were employed. Abdomen: There is mild atelectasis or scarring in the lung bases. The heart is normal in size. There are 3 hepatic masses, largest in the right liver dome measuring 23 mm. These are most worrisome for hepatic metastatic disease. The spleen is unremarkable. No adrenal mass is present. The pancreas has an unremarkable appearance. The kidneys are normal, without evidence of mass or hydronephrosis. The aorta is normal in caliber. There is no free fluid or adenopathy. There is a small hiatal hernia. There is distention of the colon and small bowel to the level of the sigmoid colon. There is a stricture at this level with apparent mass most worrisome for colonic neoplasia. Pelvis: The appendix is not well-visualized. The urinary bladder is unremarkable. Post hysterectomy. There is a small amount of ascites. There is a right inguinal hernia containing fat and a small amount of ascitic fluid. IMPRESSION: Findings most worrisome for sigmoid colon neoplasm with colonic obstruction and hepatic metastatic disease. Recommend correlation with colonoscopy. Reviewed, Interpreted and Dictated by Lester Sykes III, MD Transcribed by Ivania Jennings Authenticated and [facility]
--- NOTE | 2023-06-15 10:00 | HMH.EDGENADL ---
Discharge Plan Disposition Patient Disposition: Admitted Clinical Impressions Clinical Impression: Bowel obstruction, Lesion of liver Discharge ED Provider: Kim Adler Adult HPI General Chief complaint: Abdominal Pain Stated complaint: stomach pain 6 days Time Seen by Provider: 06/15/23 09:52 Mode of Arrival: Ambulatory Source of Information: Patient Limitations: No Limitations Description of Symptoms (Recalled from ER Triage Doc. by RN): Patient complaint of lower abdomen pain that started approx 1 week ago. States she came to the ER today because the pain worsened and she began to throw up. History of Present Illness HPI narrative: 58-year-old female who previously took medications for anxiety/stress but reportedly has no other health conditions presents to the ER with concerns of abdominal pain. Patient states it started 1 week ago with diffuse lower abdominal pain. She states it migrated around her left side and has now settled in her upper abdomen, pointing to the epigastric area. She states sometimes her abdomen feels tight and crampy. She states she started having vomiting around 2:00 this morning. Patient admits she has not had a bowel movement in 3 to 4 days. She states her last bowel movement was not bloody or black. She shows me a picture of her emesis from today which was orange in color, no obvious blood, not coffee grounds. Patient states it smelled foul like rotten eggs, she states it did not smell like stool. Patient reports she previously had a colonoscopy approximately 10 years ago which was normal. She does report taking Pepto approximately 4 days ago for nausea which did not particularly help. She also states she is taken chewable acid tablets as well as tried drinking milk without resolution of symptoms. Related Data Previous Rx's Medication Instructions Recorded triamterene 37.5 0.5 tab PO DAILY #30 tabs 10/30/21 mg-hydrochlorothiazide 25 mg tablet (Maxzide-25mg) hydroxyzine HCl 25 mg tablet 25 mg PO TID PRN itching #90 tabs 03/20/22 estradiol 1 mg tablet 1 mg PO DAILY hormones #30 tabs 04/17/22 fluconazole 150 mg tablet 150 mg PO DAILY 3 days #3 tabs 04/30/22 (Diflucan) nitrofurantoin 100 mg PO Q12H 10 days #20 caps 04/30/22 monohydrate/macrocrystals 100 mg capsule (Macrobid) prednisone 20 mg tablet 20 mg PO BID 5 days #10 tabs 04/30/22 bupropion HCl 75 mg tablet See Rx Instructions .Route 06/18/22 .COMPLEX #30 tabs Allergies Allergy/AdvReac Type Severity Reaction Status Date / Time No Known Allergies Allergy Verified 04/30/22 13:06 [facility] Disclaimer: The information contained in this section may have been updated after the patient was seen, as this information can be updated by other users. Medical History (Updated 06/15/23 @ 13:42 by Kim Adler MD) Urine frequency Skin pain HLD (hyperlipidemia) Venous insufficiency (chronic) (peripheral) MILLA (obstructive sleep apnea) HTN (hypertension) Surgical History (Updated 12/09/21 @ 10:33 by Aby Garner MD) History of total abdominal hysterectomy and bilateral salpingo-oophorectomy Social History Smoking Status: Current every day smoker second hand exposure: No alcohol intake: never substance use type: denies use current occupational status: other Travel in the last 8 weeks: None ROS Obtained: Yes All systems reviewed & no additional complaints except as documented Constitutional Constitutional: Denies chills, Denies fever(s), Denies headache(s) and Denies weakness Eyes Eyes: Denies change in vision ENT Ears, Nose, Mouth, and Throat: Denies dizziness, Denies headache(s), Denies nasal congestion and Denies sore throat Cardiovascular Cardiovascular: Denies chest pain, Denies dyspnea and Denies leg edema Respiratory Respiratory: Denies cough and Denies dyspnea Gastrointestinal Gastrointestingal: Reports abdominal pain, constipation, nausea and vomiting; Denies diarrhea, hematochezia or melena Genitourinary Female Genitourinary: Denies dysuria Musculoskeletal Musculoskeletal: Denies arthralgias, Denies myalgias, Denies numbness and Denies tingling Integumentary/Breasts Skin/Breast: Denies change in pigmentation Neurologic Neurologic: Denies dizziness, Denies headache(s), Denies numbness, Denies tingling and Denies weakness Physical Exam General General appearance: alert and in no apparent distress Head Head exam: atraumatic and normocephalic Eye Eye exam: Present PERRL and EOMI ENT ENT exam: Present mucous membranes moist Neck Neck exam: Present normal inspection and full ROM Chest Chest inspection: Present symmetric chest wall rise Respiratory Respiratory exam: Present normal lung sounds bilaterally; Absent respiratory distress, wheezes or stridor Cardiovascular Cardiovascular exam: Present regular rate and normal rhythm Abdominal Exam Abdominal exam: Present soft and tenderness (Diffuse upper abdomen, most in the epigastric area); Absent distention, guarding, rebound or rigidity Extremities Exam Extremities exam: Present full ROM Neurological Exam Neurological exam: Present alert and oriented X3; Absent motor sensory deficit Psychiatric Psychiatric exam: Present normal affect and normal mood Skin Skin exam: Present warm and dry Medical Decision Making Nathaniel Inquiry Pt receiving controlled substance: No Vital Signs: 06/15/23 09:50 06/15/23 09:53 06/15/23 10:01 Temperature 98.4 F Temperature Source Oral Pulse Rate 99 H Pulse Rate [Radial] 54 L Respiratory Rate 16 Blood Pressure 151/80 H 123/75 Blood Pressure [Right Arm] 151/80 H Blood Pressure Mean 91 Blood Pressure Mean [Right Arm] 103 Blood Pressure Source Blood Pressure Source [Right Arm] Automatic Cuff Blood Pressure Position Blood Pressure Position [Right Arm] Sitting 02 Sat by Pulse Oximetry 97 97 Oxygen Delivery Method Room Air 06/15/23 10:30 06/15/23 11:30 06/15/23 12:00 Temperature Temperature Source Pulse Rate 86 84 88 Pulse Rate [Radial] Respiratory Rate Blood Pressure 127/79 115/74 132/73 Blood Pressure [Right Arm] Blood Pressure Mean 81 Blood Pressure Mean [Right Arm] Blood Pressure Source Blood Pressure Source [Right Arm] Blood Pressure Position Blood Pressure Position [Right Arm] 02 Sat by Pulse Oximetry 98 98 96 Oxygen Delivery Method Room Air 06/15/23 14:44 Temperature 98.1 F Temperature Source Oral Pulse Rate 88 Pulse Rate [Radial] Respiratory Rate 18 Blood Pressure 132/73 Blood Pressure [Right Arm] Blood Pressure Mean Blood Pressure Mean [Right Arm] Blood Pressure Source Automatic Cuff Blood Pressure Source [Right Arm] Blood Pressure Position Sitting Blood Pressure Position [Right Arm] 02 Sat by Pulse Oximetry Oxygen Delivery Method Room Air Lab Data Lab Results 06/15/23 10:06: WBC 11.0 H, RBC 4.47, Hgb 12.8, Hct 39.6, MCV 88.6, MCH 28.6, MCHC 32.3, RDW 15.4, Plt Count 295, MPV 7.7, Neut % (Auto) 92.1 H, Lymph % (Auto) 4.9 L, [place] % (Auto) 2.4, Eos % (Auto) 0.4, Baso % (Auto) 0.2, Neut # (Auto) 10.1 H, Lymph # (Auto) 0.5 L, [place] # (Auto) 0.3, Eos # (Auto) 0.1, Baso # (Auto) 0.0, Total Counted 100, Neutrophils % (Manual) 88 H, Lymphocytes % (Manual) 9 L, Monocytes % (Manual) 3, Platelet Estimate Normal, RBC Morphology Normal, Sodium 138, Potassium 5.1, Chloride 101, Carbon Dioxide 25, Anion Gap 17.1 H, BUN 20 H, Creatinine 0.70, Estimated Creat Clear 110, Estimated GFR 85, Est GFR ( Amer) 103, Glucose 128 H, Lactate 1.4, Calcium 9.4, Total Bilirubin 1.0, AST 33, ALT 23, Alkaline Phosphatase 99, Troponin I < 0.01, Total Protein 8.2, Albumin 4.4, Globulin 3.8 H, Albumin/Globulin Ratio 1.2, Lipase 36 06/15/23 12:01: Urine Color Yellow, Urine Appearance Sl cloudy, Urine pH 6.0, Ur Specific [place] 1.015, Urine Protein Trace, Urine Glucose (UA) Negative, Urine Ketones 2+, Urine Blood Negative, Urine Nitrate Negative, Urine Bilirubin 1+ A, Urine Urobilinogen 2.0, Ur Leukocyte Esterase Negative, Urine RBC 5-10, Urine WBC None, Ur Squamous Epith Cells 3-5, Urine Bacteria Trace 06/15/23 10:06 06/15/23 10:06 Orders (Tests/Meds): ED MEDICATIONS Generic Name Dose Route Start Last Admin Trade Name Freq PRN Reason Stop Dose Admin Heparin Sodium (Porcine) 5,000 unit 06/15/23 13:45 Heparin Sodium 5,000 Unit/Ml Vial SQ 07/15/23 13:44 Q8H NOEL Lactated Ringer's 1,000 mls @ 125 mls/hr 06/15/23 13:45 Lactated Ringer's 1000 Ml Bag IV 07/15/23 13:44 .Q8H NOEL Ondansetron HCl 4 mg 06/15/23 13:37 Ondansetron 4mg/2ml Vial IV 07/15/23 13:36 Q8HP PRN Nausea Sodium Chloride 10 ml 06/15/23 11:09 06/15/23 11:10 Sodium Chloride 0.9% 10ml Syr (Rad Only) IV 07/15/23 11:08 10 ml NEEDED PRN Administration Maintain IV Site Discontinued Medications Generic Name Dose Route Start Last Admin Trade Name Leonid PRN Reason Stop Dose Admin Lactated Ringer's 1,000 mls @ 999 mls/hr 06/15/23 09:58 06/15/23 10:12 Lactated Ringer's 1000 Ml Bag IV 06/15/23 10:58 999 mls/hr .Q1H1M ONE Administration Iopamidol 75 ml 06/15/23 11:09 06/15/23 11:10 Iopamidol-370 (76%);100ml Bottle IV 06/15/23 11:10 75 ml ONCE ONE Administration Mineral Oil 133 ml 06/15/23 12:28 Mineral Oil Enema 133ml RC 06/15/23 12:29 ONCE ONE Ondansetron HCl 4 mg 06/15/23 09:58 06/15/23 10:12 Ondansetron 4mg/2ml Vial IV 06/15/23 09:59 4 mg ONCE ONE Administration ORDERS Category Date Time Status CT abdomen pelvis w con Stat Cat Scan 06/15/23 09:58 Completed KUB (single view) [XR KUB] Stat Exams 06/15/23 13:03 Completed CBC w/Auto Diff [Complete Blood Count Auto Diff] Stat Lab 06/15/23 10:06 Completed CMP [Comprehensive Metabolic Panel] Stat Lab 06/15/23 10:06 Completed Complete Blood Count Auto Diff AMLAB Lab 06/16/23 06:00 Ordered Comprehensive Metabolic Panel AMLAB Lab 06/16/23 06:00 Ordered Lactic Acid Stat Lab 06/15/23 10:06 Completed Lipase Stat Lab 06/15/23 10:06 Completed Magnesium AMLAB Lab 06/16/23 06:00 Ordered Trop I [Troponin I] Stat Lab 06/15/23 10:06 Completed Urinalysis and Microscopic Stat Lab 06/15/23 12:01 Completed Medical Decision Narrative: In summary, this 58year old female presents to the emergency department today with abdominal pain, vomiting, constipation. On initial evaluation patient is hemodynamically stable, afebrile, patient has mild tenderness to palpation across the upper abdomen, maximal in the epigastric area, no rebound or guarding, nonacute abdomen, remainder of exam reassuring. Differential diagnosis includes but is not limited to viral syndrome, electrolyte abnormality, constipation, bowel obstruction, I considered mesenteric ischemia however patient has had migratory abdominal pain which is not consistent with this presentation, I considered urinary tract infection, pancreatitis, and also atypical presentation of ACS. Based on these concerns, I ordered basic labs, lipase, lactic, cardiac workup, CT abdomen pelvis. ECG personally interpreted demonstrates normal sinus rhythm, rate 90, normal axis, normal intervals, no STEMI. Patient received Zofran, IV fluids for treatment. Labs personally reviewed demonstrate mild leukocytosis, no anemia, UA negative for findings of infection, mild prerenal azotemia, patient already received IV fluids, patient does not have any findings of liver dysfunction, normal bilirubin, initial troponin undetectable at less than 0.01, reassuring against ACS. CT abdomen pelvis personally interpreted demonstrates abnormalities of the liver, pancolonic constipation on my personal interpretation. Due to severe constipation and patient's symptoms, I ordered soapsuds enema. Most of the fluid immediately drained out of the patient. She did not have any pain. I received a call from radiology after patient had received enema that they were concerned for malignancy causing constipation/bowel obstruction. They are concerned that the abnormalities of the liver are metastatic. Patient is not having any rectal bleeding or findings of perforation,had no pain with enema, however due to the concern for possible sigmoid malignancy and having received enema, I did order KUB to evaluate for possibility of perforation. On my personal interpretation of abdominal x-ray, there is no free air under the diaphragm, no findings of perforation. Patient continues having mild abdominal pain but it is not severe, her symptoms are overall unchanged from time of presentation including still having persistent nausea. I discussed this case with transfer center, ultimately patient was accepted by colorectal surgery Dr. Hebert for admission and direct bed, they anticipate having a bed available later this evening. In the meantime, patient will be admitted to our hospitalist service for management, I discussed this patient with Dr. Flores who accepted. Prior to admission I am placing an NG tube, keeping patient n.p.o., and starting her on IV maintenance fluids until she is transferred. NG tube was placed successfully with removal of stomach contents. It is light brown in color, placed on intermittent low wall suction, contents do smell like bowel/stool. nonbloody. X-ray status post NGT placement was personally interpreted and demonstrates NG tube in appropriate position. Patient was admitted in stable condition. Critical Care Critical Care Time Critical Care Time: No
--- NOTE | 2023-06-15 10:08 | ECG_ITS ---
APPROVED REPORT Exam: Resting ECG HR:90 bpm ECG Measurements Heart Rate 90 AXES TX 144 P 52 QRSd 89 QRS 60 QT 347 T 39 QTc 394 Conclusion SINUS RHYTHM Electronically signed by : TATA NICOLE, 06/15/2023 18:03:31
[2023-06-15] MEDS: LACTATED RINGERS 1000ML 1,000 ML 999 ML IV (10:12)
[2023-06-15] MEDS: ONDANSETRON 4MG/2ML VIAL 4 MG IV (10:12)
[2023-06-15 10:21] LABS: Basophils % 0.2 % (0.1-2.0); Eosinophils # 0.1 K/mm3 (0.0-0.4); Eosinophils % 0.4 % (0.1-12.0); Hematocrit 39.6 % (37.0-47.0); Hemoglobin 12.8 g/dL (12.2-16.2); Lymphocytes # 0.5 K/mm3 (0.7-4.5); Lymphocytes % 4.9 % (10-50); Mean Corpuscular HGB Conc 32.3 g/dL (31.8-35.4); Mean Corpuscular Hemoglobin 28.6 pg (27.0-31.2); Mean Corpuscular Volume 88.6 fl (81-99); Mean Platelet Volume 7.7 fl (7.4-10.4); Monocytes # 0.3 K/mm3 (0.1-1.0); Monocytes % 2.4 % (1.7-9.3); Neutrophils # 10.1 K/mm3 (1.8-7.8); Neutrophils % 92.1 % (37.0-80.0); Platelet Count 295 K/mm3 (142-424); Red Blood Count 4.47 M/mm3 (4.20-5.40); Red Cell Distribution Width 15.4 % (11.5-17.5)
[2023-06-15 10:30] LABS: Alanine Aminotransferase 23 U/L (12-78); Albumin Level 4.4 g/dl (3.5-5.0); Albumin/Globulin Ratio 1.2 (1.1-1.8); Alkaline Phosphatase 99 U/L (38-126); Anion Gap 17.1 mEq/L (5-15); Aspartate Amino Transferase 33 U/L (14-36); Blood Urea Nitrogen 20 mg/dl (7-17); Calcium 9.4 mg/dl (8.4-10.2); Carbon Dioxide 25 mmol/L (22.0-30.0); Chloride 101 mmol/L (98-107); Creatinine Clearance Estimated 110 mL/min (50-200); Estimated Glomerular Filt Rate 85 ml/min (>60); GFR (African American) 103 ML/MIN (>60); Globulin 3.8 g/dL (1.3-3.2); Glucose 128 mg/dl (74-100); Lactic Acid 1.4 mmol/L (0.7-2.1); Lipase 36 U/L (23-300); MANUAL DIFFERENTIAL MANUAL DIFFERENTIAL (MANUAL DIFF); Potassium 5.1 mmoL/L (3.5-5.1); Sodium 138 mmol/L (136-145); Total Protein,Serum 8.2 g/dl (6.3-8.2)
[2023-06-15 10:48] LABS: Troponin I < 0.01 ng/ml (0.00-0.034)
[2023-06-15] MEDS: IOPAMIDOL-370 (76%);100ML BOTTLE 75 ML IV (11:10)
[2023-06-15] MEDS: SODIUM CHLORIDE 0.9% 10ML SYR (RAD ONLY) 10 ML IV (11:10)
--- NOTE | 2023-06-15 12:05 | PC.NURSE ---
pt ambulatory to bathroom. No other needs voiced at this time.
[2023-06-15 12:08] LABS: Microscopic, Urine URINE MICROSCOPIC (MICROSCOPIC)
[2023-06-15 12:12] LABS: Appearance,Urine SL CLOUDY (Clear); Blood, Urine Negative (Negative); Color,Urine YELLOW (Yellow); Glucose,Urine (UA) Negative (Negative); Ketones,Urine 2+ (Negative); Leukocyte Esterase,Urine Negative (Negative); Nitrate,Urine Negative (Negative); Protein,Urine TRACE (Negative); Specific Gravity, Urine 1.015 (1.005-1.030)
[2023-06-15 12:17] LABS: Bilirubin,Urine 1+ (Negative)
[2023-06-15 12:44] LABS: Bacteria,Urine Trace /lpf
--- NOTE | 2023-06-15 12:45 | PC.NURSE ---
called [facility] for transfer
--- NOTE | 2023-06-15 13:03 | XR_ITS ---
FINAL REPORT CLINICAL HISTORY: abd pain FINDINGS: ABDOMEN SINGLE VIEW There is moderate colonic distention in a nonspecific pattern. Residual contrast is seen in the renal collecting systems. No abnormal calcification is seen. IMPRESSION: Nonspecific bowel gas pattern. Reviewed, Interpreted and Dictated by Lester Sykes III, MD Transcribed by Marian Smith Authenticated and [facility]
[2023-06-15 13:10] LABS: Lymphocytes % 9 % (10-50); Monocytes % 3 % (2-9); Neutrophils % 88 % (42-76); Total Cells Counted 100
[2023-06-15 13:11] LABS: Platelet Estimate Normal; RBC Morphology Normal
--- NOTE | 2023-06-15 13:35 | PC.NURSE ---
speaking to hospitalist
--- NOTE | 2023-06-15 13:41 | EXP.HP ---
History of Present Illness *Admission Date: 06/15/23 *Reason for visit:: Nausea and vomiting [facility] Disclaimer: The information contained in this section may have been updated after the patient was seen, as this information can be updated by other users. Medical History (Updated 06/15/23 @ 13:42 by Kim Adler MD) Urine frequency Skin pain HLD (hyperlipidemia) Venous insufficiency (chronic) (peripheral) MILLA (obstructive sleep apnea) HTN (hypertension) Surgical History (Updated 12/09/21 @ 10:33 by Aby Garner MD) History of total abdominal hysterectomy and bilateral salpingo-oophorectomy Social History Smoking Status: Current every day smoker second hand exposure: No alcohol intake: never substance use type: denies use current occupational status: other Travel in the last 8 weeks: None Review of Systems Constitutional Constitutional: Denies headache(s) and Denies weakness ENT Ears, Nose, Mouth, and Throat: Denies dizziness and Denies headache(s) *Musculoskeletal Musculoskeletal: Denies numbness and Denies tingling *Neurologic Neurologic: Denies dizziness, Denies headache(s), Denies numbness, Denies tingling and Denies weakness Meds Home Medications and Allergies Home Medications Medication Instructions Recorded Confirmed Type triamterene 37.5 0.5 tab PO DAILY #30 tabs 10/30/21 04/30/22 Rx mg-hydrochlorothiazide 25 mg tablet (Maxzide-25mg) hydroxyzine HCl 25 mg tablet 25 mg PO TID PRN itching #90 tabs 03/20/22 04/30/22 Rx estradiol 1 mg tablet 1 mg PO DAILY hormones #30 tabs 04/17/22 04/30/22 Rx fluconazole 150 mg tablet 150 mg PO DAILY 3 days #3 tabs 04/30/22 04/30/22 Rx (Diflucan) nitrofurantoin 100 mg PO Q12H 10 days #20 caps 04/30/22 04/30/22 Rx monohydrate/macrocrystals 100 mg capsule (Macrobid) prednisone 20 mg tablet 20 mg PO BID 5 days #10 tabs 04/30/22 04/30/22 Rx bupropion HCl 75 mg tablet See Rx Instructions .Route 05/11/23 Rx .COMPLEX #30 tabs New Prescriptions to Start Prescriptions: Allergies Allergy/AdvReac Type Severity Reaction Status Date / Time No Known Allergies Allergy Verified 04/30/22 13:06 Exam Data for Last 24 hours Vital signs and Labs for Last 24 Hours: Temp Pulse Resp BP Pulse Ox O2 Del Method 98.4 F 88 16 132/73 96 Room Air 06/15/23 09:50 06/15/23 12:00 06/15/23 09:50 06/15/23 12:00 06/15/23 12:00 06/15/23 12:00 Laboratory Results - last 24 hr 06/15/23 10:06: WBC 11.0 H, RBC 4.47, Hgb 12.8, Hct 39.6, MCV 88.6, MCH 28.6, MCHC 32.3, RDW 15.4, Plt Count 295, MPV 7.7, Neut % (Auto) 92.1 H, Lymph % (Auto) 4.9 L, [place] % (Auto) 2.4, Eos % (Auto) 0.4, Baso % (Auto) 0.2, Neut # (Auto) 10.1 H, Lymph # (Auto) 0.5 L, [place] # (Auto) 0.3, Eos # (Auto) 0.1, Baso # (Auto) 0.0, Total Counted 100, Neutrophils % (Manual) 88 H, Lymphocytes % (Manual) 9 L, Monocytes % (Manual) 3, Platelet Estimate Normal, RBC Morphology Normal, Sodium 138, Potassium 5.1, Chloride 101, Carbon Dioxide 25, Anion Gap 17.1 H, BUN 20 H, Creatinine 0.70, Estimated Creat Clear 110, Estimated GFR 85, Est GFR ( Amer) 103, Glucose 128 H, Lactate 1.4, Calcium 9.4, Total Bilirubin 1.0, AST 33, ALT 23, Alkaline Phosphatase 99, Troponin I < 0.01, Total Protein 8.2, Albumin 4.4, Globulin 3.8 H, Albumin/Globulin Ratio 1.2, Lipase 36 06/15/23 12:01: Urine Color Yellow, Urine Appearance Sl cloudy, Urine pH 6.0, Ur Specific [place] 1.015, Urine Protein Trace, Urine Glucose (UA) Negative, Urine Ketones 2+, Urine Blood Negative, Urine Nitrate Negative, Urine Bilirubin 1+ A, Urine Urobilinogen 2.0, Ur Leukocyte Esterase Negative, Urine RBC 5-10, Urine WBC None, Ur Squamous Epith Cells 3-5, Urine Bacteria Trace I & O for Last 24 hours: Intake & Output 06/12/23 06/13/23 06/14/23 06/15/23 23:59 23:59 23:59 23:59 Weight 81.647 kg
--- NOTE | 2023-06-15 13:54 | PC.NURSE ---
Attempted to call report. Nurse will call back when available.
--- NOTE | 2023-06-15 14:30 | XR_ITS ---
FINAL REPORT CLINICAL HISTORY: NGT placement FINDINGS: ABDOMEN SINGLE VIEW There is a nonspecific, nonobstructive bowel gas pattern. No bowel dilation is identified. NG tube tip terminates in the body of the stomach. No abnormal calcification is seen. IMPRESSION: NG tube as above. Reviewed, Interpreted and Dictated by Lester Sykes III, MD Transcribed by Marian Smith Authenticated and [facility]
--- NOTE | 2023-06-15 14:51 | PC.NURSE ---
Patient arrived to the floor at this time via wheelchair
--- NOTE | 2023-06-15 15:44 | PC.NURSE ---
pt has herman (more than $50) in shirt pocket, stating she was going to pay bills and will have [facility] come car pick up driver the money. she wants to keep it at bs in her shirt. 'pt came up from ed with ng in rt nare at 55cm, connected to lws with 200ml of brown output
[2023-06-15] MEDS: LACTATED RINGERS 1000ML 1,000 ML 125 ML IV (16:10)
[2023-06-15] MEDS: HEPARIN SODIUM 5,000 UNIT/ML VIAL 5000 UNIT SQ (16:10)
--- NOTE | 2023-06-15 16:57 | EXP.HPDC ---
General Admission date:: 06/15/23 Discharge date: 06/15/23 *Admission Date: 06/15/23 *Chief complaint: nausea and vomiting, no BM in 5 days *History of present illness: Ms. Snyder is a 58-year-old female who reports that for the past week she has had worsening progressive abdominal pain. Developed nausea and vomiting overnight and decided to come to the ER because of inability to keep down nutrition. On presentation to the ER, she was found to be having nausea and vomiting that was foul-smelling like sulfur. States that over the past 5 to 7 days she has had worsening cramping sensation in her abdomen. [place] like it was moving. Last bowel movement 4 days ago. Denies any morenita blood in vomit. No blood in stool. Denies change in caliber or character of her stools over the past few weeks. Stable on room air. No fevers. Denies night sweats or weight loss. Emesis has been orange in color with no blood or coffee grounds. Workup in the ER with imaging and labs. Imaging showed colonic mass with possible lesions (mets) to her liver. Found to have morenita bowel obstruction due to suspected tumor. NG placed to decompress her abdomen. Labs remarkable for white cell count of 11, no anemia. Kidney function and electrolytes normal. Medicine consulted for admission pending bed at tertiary center. Patient has been accepted to but does not know when a bed will be ready. On evaluation, patient has a flat affect. Complains of some mild abdominal discomfort. Nausea better after placement of NG though she had an episode of emesis with placement of the NG. Denies any shortness of breath. [facility] Disclaimer: The information contained in this section may have been updated after the patient was seen, as this information can be updated by other users. Medical History Urine frequency Skin pain HLD (hyperlipidemia) Venous insufficiency (chronic) (peripheral) MILLA (obstructive sleep apnea) HTN (hypertension) Surgical History History of total abdominal hysterectomy and bilateral salpingo-oophorectomy Social History Smoking Status: Current every day smoker second hand exposure: No alcohol intake: never substance use type: denies use current occupational status: other Travel in the last 8 weeks: None Review of Systems Review of Systems Review of systems (narrative): 14 point review of systems performed, pertinent positives and negatives as per HPI Constitutional Constitutional: Denies headache(s) and Denies weakness ENT Ears, Nose, Mouth, and Throat: Denies dizziness and Denies headache(s) *Musculoskeletal Musculoskeletal: Denies numbness and Denies tingling *Neurologic Neurologic: Denies dizziness, Denies headache(s), Denies numbness, Denies tingling and Denies weakness Exam Data for Last 24 hours Vital signs and Labs for Last 24 Hours: Temp Pulse Resp BP Pulse Ox O2 Del Method 98.1 F 88 18 132/73 98 Room Air 06/15/23 14:44 06/15/23 14:44 06/15/23 14:44 06/15/23 14:44 06/15/23 14:00 06/15/23 15:00 Laboratory Results - last 24 hr 06/15/23 10:06: WBC 11.0 H, RBC 4.47, Hgb 12.8, Hct 39.6, MCV 88.6, MCH 28.6, MCHC 32.3, RDW 15.4, Plt Count 295, MPV 7.7, Neut % (Auto) 92.1 H, Lymph % (Auto) 4.9 L, Garrard % (Auto) 2.4, Eos % (Auto) 0.4, Baso % (Auto) 0.2, Neut # (Auto) 10.1 H, Lymph # (Auto) 0.5 L, Garrard # (Auto) 0.3, Eos # (Auto) 0.1, Baso # (Auto) 0.0, Total Counted 100, Neutrophils % (Manual) 88 H, Lymphocytes % (Manual) 9 L, Monocytes % (Manual) 3, Platelet Estimate Normal, RBC Morphology Normal, Sodium 138, Potassium 5.1, Chloride 101, Carbon Dioxide 25, Anion Gap 17.1 H, BUN 20 H, Creatinine 0.70, Estimated Creat Clear 110, Estimated GFR 85, Est GFR ( Amer) 103, Glucose 128 H, Lactate 1.4, Calcium 9.4, Total Bilirubin 1.0, AST 33, ALT 23, Alkaline Phosphatase 99, Troponin I < 0.01, Total Protein 8.2, Albumin 4.4, Globulin 3.8 H, Albumin/Globulin Ratio 1.2, Lipase 36 06/15/23 12:01: Urine Color Yellow, Urine Appearance Sl cloudy, Urine pH 6.0, Ur Specific [place] 1.015, Urine Protein Trace, Urine Glucose (UA) Negative, Urine Ketones 2+, Urine Blood Negative, Urine Nitrate Negative, Urine Bilirubin 1+ A, Urine Urobilinogen 2.0, Ur Leukocyte Esterase Negative, Urine RBC 5-10, Urine WBC None, Ur Squamous Epith Cells 3-5, Urine Bacteria Trace I & O for Last 24 hours: Intake & Output 06/12/23 06/13/23 06/14/23 06/15/23 23:59 23:59 23:59 23:59 Weight 74.503 kg Constitutional Constitutional: no acute distress, average body habitus and cooperative *Routine HEENT Exam Head: Present normocephalic Eye: Present EOMI and PERRL ENT: Present mucous membranes moist Comments: NG in left nare *Routine Neck Exam Neck: Present supple; Absent lymphadenopathy *Routine Respiratory Exam Respiratory: Present CTA bilaterally; Absent rhonchi, wheezes or crackles *Routine Cardiovascular Exam Cardiovascular: Present RRR *Routine Abdominal Exam Abdominal: Present soft and tenderness; Absent normoactive bowel sounds or distended *Routine Rectal Exam Rectal:: deferred *Routine Genitalia Exam Genitalia:: deferred *Routine Extremities Exam Extremities: Absent cyanosis, clubbing or edema *Routine Skin Exam Skin: Present warm; Absent rash *Routine Neurological Exam Neurological: Present alert, oriented X3 and moving all extremities; Absent altered mental status Routine Psychiatric Exam Comments: Relatively flat affect. Meds Home Medications and Allergies Home Medications Medication Instructions Recorded Confirmed Type IV with Additives 125 mls/hr IV 06/15/23 Rx heparin (porcine) 5,000 unit/mL 5,000 unit SQ Q8H #0 mL 06/15/23 Rx injection solution morphine 4 mg/mL intravenous 4 mg IV Q4HP PRN Severe Pain 06/15/23 Rx syringe (7-10) #0 mL ondansetron HCl (PF) 4 mg/2 mL 4 mg (2 mL) IV Q8HP PRN Nausea #0 06/15/23 Rx injection solution mL New Prescriptions to Start Prescriptions: IV with Additives Lactated Ringers 1000ML [Lactated Ringer's 1000 mL bag] 1,000 ml 125 mls/hr IV Allergies Allergy/AdvReac Type Severity Reaction Status Date / Time No Known Allergies Allergy Verified 04/30/22 13:06 Hospital Course Hospital Course Hospital Course: Workup in the ER concerning for mass in her colon with bowel obstruction. Bowels were decompressed with NG. Treated with antiemetics and pain control. Within a few hours of being transferred to the floor, patient was accepted to with bed. Stable to discharge and transfer at this time. Labs essentially normal. Images power shared to . Received a dose of morphine prior to transfer. Hemodynamically stable. On room air. Appreciate [facility]'s assistance and further management with evaluation for surgical intervention. Results Data Completed and Pending Labs on day of discharge: Labs from last 24 hours 06/15/23 06/15/23 12:01 10:06 WBC 11.0 H RBC 4.47 Hgb 12.8 Hct 39.6 MCV 88.6 MCH 28.6 MCHC 32.3 RDW 15.4 Plt Count 295 MPV 7.7 Neut % (Auto) 92.1 H Lymph % (Auto) 4.9 L [place] % (Auto) 2.4 Eos % (Auto) 0.4 Baso % (Auto) 0.2 Neut # (Auto) 10.1 H Lymph # (Auto) 0.5 L [place] # (Auto) 0.3 Eos # (Auto) 0.1 Baso # (Auto) 0.0 Total Counted 100 Neutrophils % (Manual) 88 H Lymphocytes % (Manual) 9 L Monocytes % (Manual) 3 Platelet Estimate Normal RBC Morphology Normal Sodium 138 Potassium 5.1 Chloride 101 Carbon Dioxide 25 Anion Gap 17.1 H BUN 20 H Creatinine 0.70 Estimated Creat Clear 110 Estimated GFR 85 Est GFR ( Amer) 103 Glucose 128 H Lactate 1.4 Calcium 9.4 Total Bilirubin 1.0 AST 33 ALT 23 Alkaline Phosphatase 99 Troponin I < 0.01 Total Protein 8.2 Albumin 4.4 Globulin 3.8 H Albumin/Globulin Ratio 1.2 Lipase 36 Urine Color Yellow Urine Appearance Sl cloudy Urine pH 6.0 Ur Specific [place] 1.015 Urine Protein Trace Urine Glucose (UA) Negative Urine Ketones 2+ Urine Blood Negative Urine Nitrate Negative Urine Bilirubin 1+ A Urine Urobilinogen 2.0 Ur Leukocyte Esterase Negative Urine RBC 5-10 Urine WBC None Ur Squamous Epith Cells 3-5 Urine Bacteria Trace DS: Diagnosis Discharge Diagnosis (1) Bowel obstruction: Status: Acute Code(s): K56.609 - Unspecified intestinal obstruction, unspecified as to partial versus complete obstruction (2) Lesion of liver: Status: Acute Code(s): K76.9 - Liver disease, unspecified (3) Colonic mass: Status: Acute Code(s): K63.89 - Other specified diseases of intestine Discharge Plan Disposition Patient Disposition: Xfer Short-Term Hosp Condition: Fair Discharge Order Discharge Orders: Discharge Order (Routine); Ordered 06/15/23 Ordered By: Dragan Flores Follow up Plan Prescriptions/Medication Reconciliation: New heparin (porcine) 5,000 unit/mL Solution 5,000 unit SQ Q8H Qty: 0 0RF ondansetron HCl (PF) 4 mg/2 mL Solution 4 mg IV Q8HP PRN (Reason: Nausea) Qty: 0 0RF morphine 4 mg/mL Syringe 4 mg IV Q4HP PRN (Reason: Severe Pain (7-10)) Qty: 0 0RF IV with Additives Lactated Ringers 1000ML [Lactated Ringer's 1000 mL bag] 1000 ML 125 mls/hr IV Ordered By: Dragan Flores MD Last Taken: 06/15/23 16:10 125 mls/hr Discontinued triamterene-hydrochlorothiazid [Maxzide-25mg] 37.5-25 mg tablet 0.5 tab PO DAILY Qty: 30 2RF hydroxyzine HCl 25 mg tablet 25 mg PO TID PRN (Reason: itching) Qty: 90 0RF prednisone 20 mg tablet 20 mg PO BID 5 Days Qty: 10 0RF nitrofurantoin monohyd/m-cryst [Macrobid] 100 mg capsule 100 mg PO Q12H 10 Days Qty: 20 0RF Rx Instructions: must administer with a meal/food fluconazole [Diflucan] 150 mg tablet 150 mg PO DAILY 3 Days Qty: 3 0RF estradiol 1 mg tablet 1 mg PO DAILY Qty: 30 8RF bupropion HCl 75 mg tablet See Rx Instructions .ROUTE .COMPLEX Qty: 30 0RF Dose Instruction: TAKE 1 TABLET BY MOUTH ONCE DAILY . APPOINTMENT REQUIRED FOR FUTURE REFILLS Rx Instructions: TAKE 1 TABLET BY MOUTH ONCE DAILY . APPOINTMENT REQUIRED FOR FUTURE REFILLS Problem Reconciliation Problems Reviewed?: Yes Patient Discharge Instructions ACTIVITY: Continue current activity DIET: NPO Patient Instructions: DI for Small Bowel Obstruction, Nausea and Vomiting-Adult Providers Primary Care Provider: Efra Ag Admit Provider: Dragan Flores Attending Provider: Dragan Flores
--- NOTE | 2023-06-15 18:37 | PC.NURSE ---
late entry: [facility]. notified pt and per her request she wants this nurse to notify her sister and granddaughter. report called to lakia at . em[facility] notified for transport
== END 2023-06-15 19:16 | disposition short-term general hospital (02) | DRG 390 ==
LOC: ER 13:42 → 2ND 13:58
PROVIDERS: Admitting Provider Internal Medicine Adolescent Medicine; Emergency Provider Emergency Medicine; PCP Internal Medicine; Visit Provider Internal Medicine Adolescent Medicine
DX: K56.609 Unspecified intestinal obstruction, unspecified as to partial versus complete obstruction (principal); I10 Essential (primary) hypertension; E78.5 Hyperlipidemia, unspecified; K76.9 Liver disease, unspecified; K63.89 Other specified diseases of intestine; G47.33 Obstructive sleep apnea (adult) (pediatric); F17.200 Nicotine dependence, unspecified, uncomplicated
CPT/HCPCS: 74018; 74177; 80053; 81001; 83605; 83690; 84484; 85007; 85025; 93005; 99285; J2405; Q9967

== ENCOUNTER 2023-08-05 12:12 | Outpatient (CLI) | payer BC, SELFPAY ==
[2023-08-05 12:21] VITALS: BMI 29.0
[2023-08-05 12:44] LABS: Basophils % 0.5 % (0.1-2.0); Eosinophils # 0.1 K/mm3 (0.0-0.4); Eosinophils % 2.7 % (0.1-12.0); Hematocrit 34.4 % (37.0-47.0); Lymphocytes # 1.7 K/mm3 (0.7-4.5); Lymphocytes % 36.6 % (10-50); Mean Corpuscular Hemoglobin 28.1 pg (27.0-31.2); Mean Corpuscular Volume 87.7 fl (81-99); Mean Platelet Volume 7.8 fl (7.4-10.4); Monocytes # 0.2 K/mm3 (0.1-1.0); Neutrophils # 2.5 K/mm3 (1.8-7.8); Neutrophils % 55.3 % (37.0-80.0); Platelet Count 286 K/mm3 (142-424); Red Blood Count 3.93 M/mm3 (4.20-5.40); Red Cell Distribution Width 14.7 % (11.5-17.5); White Blood Count 4.5 K/mm3 (4.8-10.8)
[2023-08-05 12:54] LABS: Chloride 105 mmol/L (98-107)
[2023-08-05 12:55] LABS: Sodium 136 mmol/L (136-145)
[2023-08-05 12:57] LABS: Alanine Aminotransferase 14 U/L (12-78); Alkaline Phosphatase 92 U/L (38-126); Aspartate Amino Transferase 23 U/L (14-36); Bilirubin,Total 0.4 mg/dl (0.2-1.3); Blood Urea Nitrogen 17 mg/dl (7-17); Creatinine Clearance Estimated 88 mL/min (50-200); Estimated Glomerular Filt Rate 73 ml/min (>60); GFR (African American) 89 ML/MIN (>60)
[2023-08-05 12:58] LABS: Albumin/Globulin Ratio 1.1 (1.1-1.8); Calcium 8.9 mg/dl (8.4-10.2); Carbon Dioxide 27 mmol/L (22.0-30.0); Globulin 3.7 g/dL (1.3-3.2); Glucose 99 mg/dl (74-100); Total Protein,Serum 7.7 g/dl (6.3-8.2)
--- NOTE | 2023-08-05 13:43 | MM_ITS ---
PROCEDURE INFORMATION: Exam: MG Bilateral Screening 3D Mammography Exam date and time: 08/05/2023 1:30 PM Age: 58 years old Clinical indication: Screening examination; Additional info: Z. 12.31 TECHNIQUE: Imaging protocol: Bilateral Screening tomosynthesis and 2D mammography including computer-aided detection (CAD) when performed. COMPARISON: 1. MG MM DIG SCREENING MAMM BI W/CAD 02/05/2022 2:58 PM 2. MG MM DIG SCREENING MAMM BI W/CAD 02/04/2021 1:08 PM 3. MG MM DIG MAMM DX UNILAT LT CAD 02/05/2020 1:47 PM FINDINGS: MAMMOGRAPHY: Breast composition: There are scattered areas of fibroglandular density. Mass: No suspicious masses. Architectural distortion: No suspicious distortion. Calcifications: No suspicious calcifications. Asymmetric density: None. Skin thickening: None. Axillary adenopathy: None. IMPRESSION: No mammographic evidence of malignancy. Annual screening is recommended unless otherwise clinically indicated. ASSESSMENT: BI-RADS Category 1: Negative
[2023-08-05] MEDS: SODIUM CHLORIDE 0.9% 10ML FLUSH SYRINGE 10 ML IV (13:56)
[2023-08-06 08:21] LABS: CEA 11.2 ng/mL (0.0-4.7)
== END 2023-08-05 12:40 | disposition home or self-care (01) ==
LOC: INF 12:15
PROVIDERS: Internal Medicine Medical Oncology; PCP Nurse Practitioner Family; Visit Provider Nurse Practitioner Family
DX: C18.9 Malignant neoplasm of colon, unspecified (principal); Z12.31 Encounter for screening mammogram for malignant neoplasm of breast
CPT/HCPCS: 36591; 77063; 77067; 80053; 82378; 85025; J1642

== ENCOUNTER 2023-08-23 12:54 | Outpatient (CLI) | payer BC, SELFPAY ==
[2023-08-23 13:04] VITALS: BMI 29.4
[2023-08-23] MEDS: SODIUM CHLORIDE 0.9% 10ML FLUSH SYRINGE 10 ML IV (13:15)
[2023-08-23 13:36] LABS: Iron 100 ug/dL (37-170)
[2023-08-23 13:45] LABS: Total Iron Binding Capacity 380 ug/dL (265-497)
[2023-08-23 14:14] LABS: Ferritin 8.54 ng/ml (11.1-264)
== END 2023-08-23 13:17 | disposition home or self-care (01) ==
LOC: INF 12:56
PROVIDERS: PCP Internal Medicine; Visit Provider Internal Medicine Medical Oncology
DX: C18.9 Malignant neoplasm of colon, unspecified (principal)
CPT/HCPCS: 36591; 82728; 83540; 83550; J1642

== ENCOUNTER 2023-09-06 10:24 | Outpatient (CLI) | payer BC, SELFPAY ==
[2023-09-06] VITALS (11 sets, daily range): BP systolic 102–135; BP diastolic 65–84; PULSE 56–71; RESP 18; TEMP 36.2; O2SAT 97–98; BMI 29.4
[2023-09-06 10:46] LABS: Basophils % 0.7 % (0.1-2.0); Eosinophils # 0.2 K/mm3 (0.0-0.4); Eosinophils % 4.6 % (0.1-12.0); Hematocrit 35.1 % (37.0-47.0); Hemoglobin 11.6 g/dL (12.2-16.2); Lymphocytes # 1.3 K/mm3 (0.7-4.5); Lymphocytes % 29.8 % (10-50); Mean Corpuscular HGB Conc 33.1 g/dL (31.8-35.4); Mean Corpuscular Hemoglobin 29.5 pg (27.0-31.2); Mean Platelet Volume 8.5 fl (7.4-10.4); Monocytes # 0.3 K/mm3 (0.1-1.0); Monocytes % 6.7 % (1.7-9.3); Neutrophils # 2.6 K/mm3 (1.8-7.8); Neutrophils % 58.1 % (37.0-80.0); Platelet Count 273 K/mm3 (142-424); Red Blood Count 3.95 M/mm3 (4.20-5.40); Red Cell Distribution Width 15.9 % (11.5-17.5); White Blood Count 4.4 K/mm3 (4.8-10.8)
[2023-09-06 11:00] LABS: Alanine Aminotransferase 18 U/L (12-78); Albumin Level 3.7 g/dl (3.5-5.0); Albumin/Globulin Ratio 1.1 (1.1-1.8); Alkaline Phosphatase 70 U/L (38-126); Anion Gap 8.9 mEq/L (5-15); Aspartate Amino Transferase 28 U/L (14-36); Bilirubin,Total 0.4 mg/dl (0.2-1.3); Blood Urea Nitrogen 16 mg/dl (7-17); Calcium 9.2 mg/dl (8.4-10.2); Carbon Dioxide 27 mmol/L (22.0-30.0); Chloride 107 mmol/L (98-107); Creatinine Clearance Estimated 89 mL/min (50-200); Estimated Glomerular Filt Rate 73 ml/min (>60); GFR (African American) 89 ML/MIN (>60); Globulin 3.4 g/dL (1.3-3.2); Glucose 112 mg/dl (74-100); Potassium 3.9 mmoL/L (3.5-5.1); Sodium 139 mmol/L (136-145); Total Protein,Serum 7.1 g/dl (6.3-8.2)
[2023-09-06] MEDS: CALCIUM GLUCONATE 1,000 MG, MAGNESIUM SULFATE 1 GM in DEXTROSE 5 % IN WATER 100 ML 224 MG IV ×2 (11:38→14:14)
[2023-09-06] MEDS: ONDANSETRON 4MG ODT 16 MG SL (11:39)
[2023-09-06] MEDS: MONTELUKAST SODIUM 10MG TAB 10 MG PO (11:39)
[2023-09-06] MEDS: FAMOTIDINE 20MG TABLET 20 MG (11:39)
[2023-09-06] MEDS: POTASSIUM CHLORIDE 20MEQ TAB 40 MEQ PO (11:40)
[2023-09-06] MEDS: DEXAMETHASONE 4MG TABLET 12 MG (11:40)
[2023-09-06] MEDS: diphenhydrAMINE 25MG CAPSULE 25 MG PO (11:40)
[2023-09-06] MEDS: DEXTROSE 5% IV (12:17)
[2023-09-06] MEDS: OXALIPLATIN IV (12:17)
[2023-09-06] MEDS: WATER IV (12:17)
[2023-09-06] MEDS: 0.9 % SODIUM CHLORIDE 50 ML 100 ML IV (12:17)
[2023-09-06] MEDS: SODIUM CHLORIDE 0.9% 50ML BAG 50 ML IV (14:14)
[2023-09-06] MEDS: SODIUM CHLORIDE 0.9% 10ML FLUSH SYRINGE 10 ML IV (14:49)
== END 2023-09-06 14:55 | disposition home or self-care (01) ==
LOC: INF 10:25
PROVIDERS: PCP Nurse Practitioner Family; Visit Provider Internal Medicine Medical Oncology
DX: Z51.11 Encounter for antineoplastic chemotherapy (principal); C18.9 Malignant neoplasm of colon, unspecified; Z79.899 Other long term (current) drug therapy
CPT/HCPCS: 80053; 85025; 96413; 96415; J1642; J7060; J8540; J9263; Q0162

== ENCOUNTER 2023-09-28 08:39 | Outpatient (CLI) | payer BC, SELFPAY ==
[2023-09-28 08:49] VITALS: BMI 29.4
[2023-09-28 09:18] LABS: Basophils % 0.6 % (0.1-2.0); Eosinophils # 0.1 K/mm3 (0.0-0.4); Eosinophils % 4.7 % (0.1-12.0); Hematocrit 36.3 % (37.0-47.0); Hemoglobin 11.5 g/dL (12.2-16.2); Lymphocytes # 1.2 K/mm3 (0.7-4.5); Lymphocytes % 39.3 % (10-50); Mean Corpuscular HGB Conc 31.6 g/dL (31.8-35.4); Mean Corpuscular Hemoglobin 29.2 pg (27.0-31.2); Mean Corpuscular Volume 92.4 fl (81-99); Mean Platelet Volume 8.4 fl (7.4-10.4); Monocytes # 0.3 K/mm3 (0.1-1.0); Monocytes % 8.7 % (1.7-9.3); Neutrophils # 1.4 K/mm3 (1.8-7.8); Neutrophils % 46.7 % (37.0-80.0); Platelet Count 209 K/mm3 (142-424); Red Blood Count 3.93 M/mm3 (4.20-5.40); Red Cell Distribution Width 17.4 % (11.5-17.5); White Blood Count 3.1 K/mm3 (4.8-10.8)
[2023-09-28 09:24] LABS: Albumin Level 3.8 g/dl (3.5-5.0); Chloride 107 mmol/L (98-107); Potassium 3.9 mmoL/L (3.5-5.1); Sodium 138 mmol/L (136-145)
[2023-09-28 09:27] LABS: Alanine Aminotransferase 48 U/L (12-78); Albumin/Globulin Ratio 1.2 (1.1-1.8); Alkaline Phosphatase 68 U/L (38-126); Anion Gap 8.9 mEq/L (5-15); Aspartate Amino Transferase 54 U/L (14-36); Bilirubin,Total 0.6 mg/dl (0.2-1.3); Blood Urea Nitrogen 12 mg/dl (7-17); Calcium 8.4 mg/dl (8.4-10.2); Carbon Dioxide 26 mmol/L (22.0-30.0); Creatinine Clearance Estimated 79 mL/min (50-200); Estimated Glomerular Filt Rate 64 ml/min (>60); GFR (African American) 77 ML/MIN (>60); Globulin 3.1 g/dL (1.3-3.2); Glucose 99 mg/dl (74-100); Total Protein,Serum 6.9 g/dl (6.3-8.2)
[2023-09-28] MEDS: SODIUM CHLORIDE 0.9% 10ML FLUSH SYRINGE 10 ML IV (10:28)
--- NOTE | 2023-09-28 10:29 | PC.NURSE ---
1029-pt returned from oncology appointment to be deaccessed;no treatment today per md
== END 2023-09-28 10:29 | disposition home or self-care (01) ==
LOC: INF 08:40
PROVIDERS: PCP Internal Medicine; Visit Provider Internal Medicine Medical Oncology
DX: C18.9 Malignant neoplasm of colon, unspecified (principal)
CPT/HCPCS: 36591; 80053; 85025; J1642

== ENCOUNTER 2023-10-06 08:49 | Outpatient (CLI) | payer BC, SELFPAY ==
[2023-10-06 08:56] VITALS: BMI 30.1
[2023-10-06 09:22] LABS: Basophils % 0.7 % (0.1-2.0); Eosinophils # 0.2 K/mm3 (0.0-0.4); Eosinophils % 6.1 % (0.1-12.0); Hematocrit 34.3 % (37.0-47.0); Hemoglobin 11.1 g/dL (12.2-16.2); Lymphocytes # 1.3 K/mm3 (0.7-4.5); Lymphocytes % 36.6 % (10-50); Mean Corpuscular HGB Conc 32.4 g/dL (31.8-35.4); Mean Corpuscular Hemoglobin 30.1 pg (27.0-31.2); Mean Corpuscular Volume 92.7 fl (81-99); Mean Platelet Volume 8.7 fl (7.4-10.4); Monocytes # 0.3 K/mm3 (0.1-1.0); Monocytes % 7.8 % (1.7-9.3); Neutrophils # 1.7 K/mm3 (1.8-7.8); Neutrophils % 48.7 % (37.0-80.0); Platelet Count 204 K/mm3 (142-424); Red Cell Distribution Width 18.4 % (11.5-17.5); White Blood Count 3.5 K/mm3 (4.8-10.8)
[2023-10-06 09:26] LABS: Albumin Level 3.8 g/dl (3.5-5.0); Chloride 110 mmol/L (98-107); Sodium 138 mmol/L (136-145)
[2023-10-06 09:29] LABS: Alanine Aminotransferase 43 U/L (12-78); Aspartate Amino Transferase 45 U/L (14-36); Blood Urea Nitrogen 14 mg/dl (7-17); Carbon Dioxide 26 mmol/L (22.0-30.0); Creatinine Clearance Estimated 104 mL/min (50-200); Estimated Glomerular Filt Rate 85 ml/min (>60); GFR (African American) 103 ML/MIN (>60)
[2023-10-06 09:30] LABS: Albumin/Globulin Ratio 1.2 (1.1-1.8); Alkaline Phosphatase 78 U/L (38-126); Bilirubin,Total 0.5 mg/dl (0.2-1.3); Calcium 8.5 mg/dl (8.4-10.2); Globulin 3.1 g/dL (1.3-3.2); Glucose 109 mg/dl (74-100); Total Protein,Serum 6.9 g/dl (6.3-8.2)
[2023-10-06] MEDS: APREPITANT 125MG/80MG TRIFOLD PACK 1 PACKET PO (10:43)
[2023-10-06] MEDS: DEXAMETHASONE 4MG TABLET 12 MG PO (10:44)
[2023-10-06] MEDS: ONDANSETRON 4MG ODT 16 MG SL (10:44)
[2023-10-06] MEDS: MONTELUKAST SODIUM 10MG TAB 10 MG PO (10:44)
[2023-10-06] MEDS: diphenhydrAMINE 25MG CAPSULE 25 MG PO (10:44)
[2023-10-06] MEDS: CALCIUM GLUCONATE 1,000 MG, MAGNESIUM SULFATE 1 GM in DEXTROSE 5 % IN WATER 100 ML 204.02 MG IV ×2 (10:45→13:10)
[2023-10-06 10:50] VITALS: BP 137/50; PULSE 56; RESP 18; O2SAT 99
[2023-10-06] MEDS: DEXTROSE 5% IV (11:19)
[2023-10-06] MEDS: OXALIPLATIN IV (11:19)
[2023-10-06] MEDS: WATER IV (11:19)
[2023-10-06 11:23] VITALS: BP 110/62; PULSE 55; RESP 18; O2SAT 100
[2023-10-06 12:00] VITALS: BP 106/62; PULSE 58; RESP 18; O2SAT 100
[2023-10-06 12:30] VITALS: BP 108/71; PULSE 55; RESP 18; O2SAT 100
[2023-10-06 13:10] VITALS: BP 124/70; PULSE 52; RESP 18; O2SAT 100
[2023-10-06] MEDS: SODIUM CHLORIDE 0.9% 10ML FLUSH SYRINGE 10 ML IV (13:50)
[2023-10-06 13:52] VITALS: BP 147/66; PULSE 57; RESP 18; O2SAT 100
[2023-10-07 14:13] LABS: CEA 12.4 ng/mL (0.0-4.7)
== END 2023-10-06 23:59 | disposition home or self-care (01) ==
LOC: INF 08:50
PROVIDERS: Internal Medicine Medical Oncology; PCP Internal Medicine; Visit Provider Internal Medicine
DX: Z51.11 Encounter for antineoplastic chemotherapy (principal); C18.9 Malignant neoplasm of colon, unspecified; Z79.899 Other long term (current) drug therapy
CPT/HCPCS: 80053; 82378; 85025; 96413; 96415; J1642; J7060; J8540; J9263; Q0162

== ENCOUNTER 2023-10-27 08:49 | Outpatient (CLI) | payer BC, SELFPAY ==
[2023-10-27] VITALS (7 sets, daily range): BP systolic 118–127; BP diastolic 67–76; PULSE 65–72; RESP 18–20; O2SAT 98–99; BMI 30.1
[2023-10-27 09:23] LABS: Basophils % 0.5 % (0.1-2.0); Eosinophils # 0.1 K/mm3 (0.0-0.4); Eosinophils % 2.6 % (0.1-12.0); Hematocrit 35.2 % (37.0-47.0); Hemoglobin 11.3 g/dL (12.2-16.2); Lymphocytes # 1.3 K/mm3 (0.7-4.5); Lymphocytes % 33.2 % (10-50); Mean Corpuscular HGB Conc 32.1 g/dL (31.8-35.4); Mean Corpuscular Volume 96.7 fl (81-99); Mean Platelet Volume 7.6 fl (7.4-10.4); Monocytes # 0.4 K/mm3 (0.1-1.0); Monocytes % 9.3 % (1.7-9.3); Neutrophils # 2.1 K/mm3 (1.8-7.8); Neutrophils % 54.4 % (37.0-80.0); Platelet Count 176 K/mm3 (142-424); Red Blood Count 3.64 M/mm3 (4.20-5.40); Red Cell Distribution Width 18.4 % (11.5-17.5); White Blood Count 3.8 K/mm3 (4.8-10.8)
[2023-10-27 09:42] LABS: Albumin Level 3.7 g/dl (3.5-5.0); Chloride 108 mmol/L (98-107); Potassium 3.6 mmoL/L (3.5-5.1); Sodium 138 mmol/L (136-145)
[2023-10-27 09:45] LABS: Alanine Aminotransferase 54 U/L (12-78); Albumin/Globulin Ratio 1.1 (1.1-1.8); Alkaline Phosphatase 94 U/L (38-126); Anion Gap 7.6 mEq/L (5-15); Aspartate Amino Transferase 57 U/L (14-36); Bilirubin,Total 0.4 mg/dl (0.2-1.3); Blood Urea Nitrogen 11 mg/dl (7-17); Carbon Dioxide 26 mmol/L (22.0-30.0); Creatinine Clearance Estimated 104 mL/min (50-200); Estimated Glomerular Filt Rate 85 ml/min (>60); GFR (African American) 103 ML/MIN (>60); Globulin 3.3 g/dL (1.3-3.2)
[2023-10-27 09:46] LABS: Calcium 8.5 mg/dl (8.4-10.2); Glucose 133 mg/dl (74-100)
[2023-10-27] MEDS: APREPITANT 125MG/80MG TRIFOLD PACK 1 PACKET PO (11:03)
[2023-10-27] MEDS: POTASSIUM CHLORIDE 20MEQ TAB 40 MEQ PO (11:03)
[2023-10-27] MEDS: DEXAMETHASONE 4MG TABLET 12 MG PO (11:04)
[2023-10-27] MEDS: MONTELUKAST SODIUM 10MG TAB 10 MG PO (11:04)
[2023-10-27] MEDS: ONDANSETRON 4MG ODT 16 MG SL (11:04)
[2023-10-27] MEDS: FAMOTIDINE 20MG TABLET 20 MG PO (11:04)
[2023-10-27] MEDS: diphenhydrAMINE 25MG CAPSULE 25 MG PO (11:05)
[2023-10-27] MEDS: CALCIUM GLUCONATE 1,000 MG, MAGNESIUM SULFATE 1 GM in DEXTROSE 5 % IN WATER 100 ML 224 MG IV ×2 (11:05→13:54)
[2023-10-27] MEDS: WATER IV (11:51)
[2023-10-27] MEDS: DEXTROSE 5% IV (11:51)
[2023-10-27] MEDS: OXALIPLATIN IV (11:51)
[2023-10-27] MEDS: SODIUM CHLORIDE 0.9% 10ML FLUSH SYRINGE 10 ML IV (14:58)
[2023-10-28 08:41] LABS: CEA 8.2 ng/mL (0.0-4.7)
== END 2023-10-27 14:35 | disposition home or self-care (01) ==
LOC: INF 08:50
PROVIDERS: PCP Internal Medicine; Visit Provider Internal Medicine Medical Oncology
DX: Z51.11 Encounter for antineoplastic chemotherapy (principal); C78.5 Secondary malignant neoplasm of large intestine and rectum; Z79.64 Long term (current) use of myelosuppressive agent
CPT/HCPCS: 80053; 82378; 85025; 96413; 96415; J1642; J7060; J8540; J9263; Q0162

== ENCOUNTER 2023-11-11 08:14 | Outpatient (CLI) | payer BC, SELFPAY ==
[2023-11-11 08:10] VITALS: BMI 29.2
--- NOTE | 2023-11-11 08:18 | CT_ITS ---
FINAL REPORT TECHNIQUE: Routine axial images were obtained from the lung apices to below the diaphragm following IV contrast administration. Individualized dose reduction techniques using automated exposure control or adjustment of the mA and/or kV according to the patient size were employed. CLINICAL HISTORY: COLON CANCER COMPARISON: 06/14/2019 FINDINGS: A right sided chest port is seen in the SVC. There are multiple small noncalcified nodules. A nodule at the right lung apex measures 5 mm in greatest dimension and is best seen on image 16 of series 4, unchanged from prior exam. There is also a nodule along the right major fissure measuring 4 mm on image 36 of series 4, also stable. Nodule in the posterior right lower lobe measuring 4 mm on image 49 of series 4 is unchanged. No new mass or nodule is identified. IMPRESSION: Stable noncalcified right lung nodules, likely benign. Reviewed, Interpreted and Dictated by Twan Blood MD Transcribed by Nora Molina Authenticated and [facility]
--- NOTE | 2023-11-11 08:18 | CT_ITS ---
FINAL REPORT TECHNIQUE: After the administration of oral and intravenous contrast, axial images were obtained through the abdomen and pelvis by computed tomography. The study was performed with techniques to keep radiation dose as low as reasonably achievable, (ALARA). Individual dose reduction techniques using automated exposure control or adjustment of mA and/or kV according to the patient's size were employed. CLINICAL HISTORY: Colon cancer COMPARISON: 06/15/2023 FINDINGS: Abdomen: The lung bases are clear. The previously noted hepatic lesions are again seen. The dominant focus in the superior right lobe of the liver measures 2.2 cm and has slightly decreased in size from the prior study. An adjacent lesion measuring 1.2 cm is also slightly decreased in size. A third lesion seen on image 21 measuring 1.3 cm is also decreased in size. No new lesions are identified. The gallbladder is present. The spleen, pancreas, and adrenal glands appear unremarkable. There are multiple bilateral parapelvic renal cysts, similar to the prior study. The aorta is normal in caliber. The previously noted colonic obstruction is no longer seen. There has been interval creation of a left anterior abdominal wall ostomy. Pelvis: The urinary bladder is unremarkable. Multiple calcified phleboliths are noted in the floor the pelvis. There is no free fluid or adenopathy. IMPRESSION: Interval creation of ostomy with decompression of the previously noted colonic obstruction. 3 separate hepatic lesions highly concerning for metastases, each slightly decreased in size from the previous study. No new hepatic lesions identified. PET scan could better evaluate for the full extent of metastatic disease. Reviewed, Interpreted and Dictated by Twan Blood MD Transcribed by Ivania Jennings Authenticated and [facility]
[2023-11-11 08:27] LABS: Eosinophils # 0.1 K/mm3 (0.0-0.4); Eosinophils % 3.2 % (0.1-12.0); Hematocrit 33.8 % (37.0-47.0); Hemoglobin 10.9 g/dL (12.2-16.2); Lymphocytes # 1.2 K/mm3 (0.7-4.5); Lymphocytes % 40.9 % (10-50); Mean Corpuscular HGB Conc 32.4 g/dL (31.8-35.4); Mean Corpuscular Hemoglobin 30.8 pg (27.0-31.2); Mean Corpuscular Volume 95.1 fl (81-99); Mean Platelet Volume 7.9 fl (7.4-10.4); Monocytes # 0.3 K/mm3 (0.1-1.0); Monocytes % 10.8 % (1.7-9.3); Neutrophils # 1.3 K/mm3 (1.8-7.8); Neutrophils % 44.2 % (37.0-80.0); Platelet Count 125 K/mm3 (142-424); Red Blood Count 3.55 M/mm3 (4.20-5.40); Red Cell Distribution Width 17.7 % (11.5-17.5); White Blood Count 2.9 K/mm3 (4.8-10.8)
[2023-11-11 08:34] LABS: Albumin Level 3.7 g/dl (3.5-5.0); Chloride 104 mmol/L (98-107); Sodium 136 mmol/L (136-145)
[2023-11-11 08:35] LABS: Potassium 3.8 mmoL/L (3.5-5.1)
[2023-11-11 08:37] LABS: Alanine Aminotransferase 29 U/L (12-78); Albumin/Globulin Ratio 1.1 (1.1-1.8); Alkaline Phosphatase 96 U/L (38-126); Anion Gap 6.8 mEq/L (5-15); Aspartate Amino Transferase 39 U/L (14-36); Bilirubin,Total 0.5 mg/dl (0.2-1.3); Blood Urea Nitrogen 11 mg/dl (7-17); Carbon Dioxide 29 mmol/L (22.0-30.0); Creatinine Clearance Estimated 118 mL/min (50-200); Estimated Glomerular Filt Rate 102 ml/min (>60); GFR (African American) 123 ML/MIN (>60); Globulin 3.3 g/dL (1.3-3.2); Glucose 103 mg/dl (74-100)
[2023-11-11] MEDS: SODIUM CHLORIDE 0.9% 10ML FLUSH SYRINGE 10 ML IV (08:40)
[2023-11-11] MEDS: SODIUM CHLORIDE 0.9% 10ML SYR (RAD ONLY) 10 ML IV (08:46)
[2023-11-11] MEDS: IOPAMIDOL-370 (76%);100ML BOTTLE 75 ML IV (08:46)
== END 2023-11-11 08:45 | disposition home or self-care (01) ==
LOC: RAD 08:15
PROVIDERS: Visit Provider Internal Medicine Medical Oncology
DX: C18.9 Malignant neoplasm of colon, unspecified (principal)
CPT/HCPCS: 36591; 71260; 74177; 80053; 85025; J1642; Q9967

== ENCOUNTER 2023-11-16 10:38 | Outpatient (CLI) | payer BC, SELFPAY ==
[2023-11-16] VITALS (8 sets, daily range): BP systolic 106–141; BP diastolic 64–88; PULSE 71–80; RESP 20; TEMP 36.4; O2SAT 97–98; BMI 30.6
[2023-11-16] MEDS: CALCIUM GLUCONATE 1,000 MG, MAGNESIUM SULFATE 1 GM in DEXTROSE 5 % IN WATER 100 ML 224 MG IV ×2 (11:15→13:59)
[2023-11-16] MEDS: ONDANSETRON 4MG ODT 16 MG SL (11:16)
[2023-11-16] MEDS: APREPITANT 125MG/80MG TRIFOLD PACK 1 PACKET PO (11:16)
[2023-11-16] MEDS: MONTELUKAST SODIUM 10MG TAB 10 MG PO (11:16)
[2023-11-16] MEDS: FAMOTIDINE 20MG TABLET 20 MG PO (11:17)
[2023-11-16] MEDS: diphenhydrAMINE 25MG CAPSULE 25 MG PO (11:17)
[2023-11-16] MEDS: DEXAMETHASONE 4MG TABLET 12 MG PO (11:17)
[2023-11-16] MEDS: POTASSIUM CHLORIDE 20MEQ TAB 40 MEQ PO (11:17)
[2023-11-16] MEDS: SODIUM CHLORIDE 0.9% 10ML FLUSH SYRINGE 10 ML IV (11:53)
[2023-11-16] MEDS: OXALIPLATIN IV (11:53)
[2023-11-16] MEDS: WATER IV (11:53)
[2023-11-16] MEDS: DEXTROSE 5% IV (11:53)
[2023-11-17 12:20] LABS: CEA 6.2 ng/mL (0.0-4.7)
== END 2023-11-16 14:55 | disposition home or self-care (01) ==
LOC: INF 10:39
PROVIDERS: PCP Internal Medicine; Visit Provider Internal Medicine Medical Oncology
DX: C18.9 Malignant neoplasm of colon, unspecified (principal)
CPT/HCPCS: 82378; 96413; 96415; J1642; J7060; J8540; J9263; Q0162

== ENCOUNTER 2023-12-07 09:48 | Outpatient (CLI) | payer BC, SELFPAY ==
[2023-12-07 09:55] VITALS: BMI 30.4
[2023-12-07 10:18] LABS: Basophils % 0.7 % (0.1-2.0); Eosinophils # 0.1 K/mm3 (0.0-0.4); Eosinophils % 4.2 % (0.1-12.0); Hematocrit 33.4 % (37.0-47.0); Hemoglobin 10.2 g/dL (12.2-16.2); Lymphocytes # 1.1 K/mm3 (0.7-4.5); Lymphocytes % 46.1 % (10-50); Mean Corpuscular HGB Conc 30.4 g/dL (31.8-35.4); Mean Corpuscular Hemoglobin 29.9 pg (27.0-31.2); Mean Corpuscular Volume 98.3 fl (81-99); Mean Platelet Volume 8.8 fl (7.4-10.4); Monocytes # 0.3 K/mm3 (0.1-1.0); Monocytes % 13.6 % (1.7-9.3); Neutrophils # 0.8 K/mm3 (1.8-7.8); Neutrophils % 35.3 % (37.0-80.0); Platelet Count 111 K/mm3 (142-424); Red Cell Distribution Width 17.1 % (11.5-17.5); White Blood Count 2.3 K/mm3 (4.8-10.8)
[2023-12-07 10:25] LABS: Albumin Level 3.4 g/dl (3.5-5.0); Chloride 109 mmol/L (98-107); Potassium 3.6 mmoL/L (3.5-5.1); Sodium 141 mmol/L (136-145)
[2023-12-07 10:28] LABS: Alanine Aminotransferase 32 U/L (12-78); Alkaline Phosphatase 93 U/L (38-126); Anion Gap 10.6 mEq/L (5-15); Aspartate Amino Transferase 48 U/L (14-36); Bilirubin,Total 0.4 mg/dl (0.2-1.3); Blood Urea Nitrogen 10 mg/dl (7-17); Calcium 8.7 mg/dl (8.4-10.2); Carbon Dioxide 25 mmol/L (22.0-30.0); Creatinine Clearance Estimated 123 mL/min (50-200); Estimated Glomerular Filt Rate 102 ml/min (>60); GFR (African American) 123 ML/MIN (>60); Globulin 3.4 g/dL (1.3-3.2); Glucose 136 mg/dl (74-100); Total Protein,Serum 6.8 g/dl (6.3-8.2)
[2023-12-07] MEDS: SODIUM CHLORIDE 0.9% 10ML FLUSH SYRINGE 10 ML IV (12:18)
[2023-12-08 11:24] LABS: CEA 5.3 ng/mL (0.0-4.7)
== END 2023-12-07 12:20 | disposition home or self-care (01) ==
LOC: INF 09:49
PROVIDERS: PCP Internal Medicine; Visit Provider Internal Medicine Medical Oncology
DX: C18.9 Malignant neoplasm of colon, unspecified (principal)
CPT/HCPCS: 36591; 80053; 82378; 85025; J1642

== ENCOUNTER 2023-12-14 11:08 | Outpatient (CLI) | payer BC, SELFPAY ==
[2023-12-14 11:12] VITALS: BMI 29.4
[2023-12-14] MEDS: SODIUM CHLORIDE 0.9% 10ML FLUSH SYRINGE 10 ML IV (11:22)
[2023-12-14 11:51] LABS: Basophils % 0.3 % (0.1-2.0); Eosinophils # 0.1 K/mm3 (0.0-0.4); Eosinophils % 3.1 % (0.1-12.0); Hematocrit 32.2 % (37.0-47.0); Lymphocytes # 1.4 K/mm3 (0.7-4.5); Lymphocytes % 35.5 % (10-50); Mean Corpuscular HGB Conc 34.1 g/dL (31.8-35.4); Mean Corpuscular Hemoglobin 31.8 pg (27.0-31.2); Mean Corpuscular Volume 93.4 fl (81-99); Mean Platelet Volume 8.3 fl (7.4-10.4); Monocytes # 0.4 K/mm3 (0.1-1.0); Monocytes % 8.9 % (1.7-9.3); Neutrophils # 2.1 K/mm3 (1.8-7.8); Neutrophils % 52.2 % (37.0-80.0); Platelet Count 162 K/mm3 (142-424); Red Blood Count 3.45 M/mm3 (4.20-5.40); Red Cell Distribution Width 16.5 % (11.5-17.5); White Blood Count 3.9 K/mm3 (4.8-10.8)
[2023-12-14 12:09] LABS: Alanine Aminotransferase 25 U/L (12-78); Albumin Level 3.5 g/dl (3.5-5.0); Albumin/Globulin Ratio 1.1 (1.1-1.8); Alkaline Phosphatase 96 U/L (38-126); Anion Gap 7.8 mEq/L (5-15); Aspartate Amino Transferase 42 U/L (14-36); Bilirubin,Total 0.5 mg/dl (0.2-1.3); Blood Urea Nitrogen 12 mg/dl (7-17); Calcium 8.6 mg/dl (8.4-10.2); Carbon Dioxide 25 mmol/L (22.0-30.0); Chloride 108 mmol/L (98-107); Creatinine Clearance Estimated 102 mL/min (50-200); Estimated Glomerular Filt Rate 85 ml/min (>60); GFR (African American) 103 ML/MIN (>60); Globulin 3.2 g/dL (1.3-3.2); Glucose 110 mg/dl (74-100); Potassium 3.8 mmoL/L (3.5-5.1); Sodium 137 mmol/L (136-145); Total Protein,Serum 6.7 g/dl (6.3-8.2)
== END 2023-12-14 11:25 | disposition home or self-care (01) ==
LOC: INF 11:09
PROVIDERS: PCP Internal Medicine; Visit Provider Internal Medicine Medical Oncology
DX: C18.9 Malignant neoplasm of colon, unspecified (principal)
CPT/HCPCS: 36591; 80053; 85025; J1642

== ENCOUNTER 2023-12-15 10:09 | Outpatient (CLI) | payer BC, SELFPAY ==
[2023-12-15] VITALS (13 sets, daily range): BP systolic 111–123; BP diastolic 53–76; PULSE 65–72; RESP 16–17; O2SAT 99
[2023-12-15] MEDS: 0.9 % SODIUM CHLORIDE 100 ML 224 ML IV (10:39)
[2023-12-15] MEDS: CALCIUM GLUCONATE 1,000 MG, MAGNESIUM SULFATE 1 GM in DEXTROSE 5 % IN WATER 100 ML 224 MG IV ×2 (10:48→13:35)
[2023-12-15] MEDS: DEXAMETHASONE 4MG TABLET 12 MG PO (10:49)
[2023-12-15] MEDS: APREPITANT 125MG/80MG TRIFOLD PACK 1 PACKET PO (10:49)
[2023-12-15] MEDS: ONDANSETRON 4MG ODT 16 MG SL (10:50)
[2023-12-15] MEDS: diphenhydrAMINE 25MG CAPSULE 25 MG PO (10:50)
[2023-12-15] MEDS: FAMOTIDINE 20MG TABLET 20 MG PO (10:51)
[2023-12-15] MEDS: POTASSIUM CHLORIDE 20MEQ TAB 40 MEQ PO (10:51)
[2023-12-15] MEDS: MONTELUKAST SODIUM 10MG TAB 10 MG PO (10:51)
[2023-12-15] MEDS: DEXTROSE 5% IV (11:20)
[2023-12-15] MEDS: OXALIPLATIN IV (11:20)
[2023-12-15] MEDS: WATER IV (11:20)
== END 2023-12-15 14:20 | disposition home or self-care (01) ==
LOC: INF 10:10
PROVIDERS: PCP Internal Medicine; Visit Provider Internal Medicine Medical Oncology
DX: C18.0 Malignant neoplasm of cecum (principal)
CPT/HCPCS: 96413; 96415; J1642; J7060; J8540; J9263; Q0162

== ENCOUNTER 2024-01-05 10:45 | Outpatient (CLI) | payer BC, SELFPAY ==
[2024-01-05] VITALS (12 sets, daily range): BP systolic 114–142; BP diastolic 55–90; PULSE 69–89; RESP 16–17; TEMP 36.4; O2SAT 95; BMI 30.2
[2024-01-05 11:20] LABS: Basophils % 1.3 % (0.1-2.0); Eosinophils # 0.1 K/mm3 (0.0-0.4); Eosinophils % 2.5 % (0.1-12.0); Hematocrit 32.8 % (37.0-47.0); Lymphocytes # 1.2 K/mm3 (0.7-4.5); Lymphocytes % 40.3 % (10-50); Mean Corpuscular HGB Conc 33.4 g/dL (31.8-35.4); Mean Corpuscular Hemoglobin 31.8 pg (27.0-31.2); Mean Platelet Volume 8.7 fl (7.4-10.4); Monocytes # 0.3 K/mm3 (0.1-1.0); Monocytes % 11.2 % (1.7-9.3); Neutrophils # 1.4 K/mm3 (1.8-7.8); Neutrophils % 44.7 % (37.0-80.0); Platelet Count 94 K/mm3 (142-424); Red Blood Count 3.45 M/mm3 (4.20-5.40); Red Cell Distribution Width 15.3 % (11.5-17.5); White Blood Count 3.1 K/mm3 (4.8-10.8)
[2024-01-05 11:25] LABS: Alanine Aminotransferase 27 U/L (12-78); Albumin Level 3.3 g/dl (3.5-5.0); Albumin/Globulin Ratio 1.1 (1.1-1.8); Alkaline Phosphatase 102 U/L (38-126); Anion Gap 10.4 mEq/L (5-15); Aspartate Amino Transferase 41 U/L (14-36); Bilirubin,Total 0.5 mg/dl (0.2-1.3); Blood Urea Nitrogen 12 mg/dl (7-17); Calcium 8.5 mg/dl (8.4-10.2); Carbon Dioxide 25 mmol/L (22.0-30.0); Chloride 109 mmol/L (98-107); Creatinine Clearance Estimated 122 mL/min (50-200); Estimated Glomerular Filt Rate 102 ml/min (>60); GFR (African American) 123 ML/MIN (>60); Glucose 136 mg/dl (74-100); Potassium 3.4 mmoL/L (3.5-5.1); Sodium 141 mmol/L (136-145); Total Protein,Serum 6.3 g/dl (6.3-8.2)
[2024-01-05] MEDS: ONDANSETRON 4MG ODT 16 MG SL (11:44)
[2024-01-05] MEDS: DEXAMETHASONE 4MG TABLET 12 MG PO (11:45)
[2024-01-05] MEDS: MONTELUKAST SODIUM 10MG TAB 10 MG PO (11:46)
[2024-01-05] MEDS: APREPITANT 125MG/80MG TRIFOLD PACK 1 PACKET PO (11:46)
[2024-01-05] MEDS: FAMOTIDINE 20MG TABLET 20 MG PO (11:46)
[2024-01-05] MEDS: diphenhydrAMINE 25MG CAPSULE 25 MG PO (11:46)
[2024-01-05] MEDS: POTASSIUM CHLORIDE 20MEQ TAB 40 MEQ PO (11:47)
[2024-01-05] MEDS: 0.9 % SODIUM CHLORIDE 100 ML IV (11:47)
[2024-01-05] MEDS: CALCIUM GLUCONATE 1,000 MG, MAGNESIUM SULFATE 1 GM in DEXTROSE 5 % IN WATER 100 ML 224 MG IV ×2 (11:55→14:46)
[2024-01-05] MEDS: WATER IV (12:33)
[2024-01-05] MEDS: DEXTROSE 5% IV (12:33)
[2024-01-05] MEDS: OXALIPLATIN IV (12:33)
[2024-01-05] MEDS: PROCHLORPERAZINE 10MG/2ML VIAL 10 MG (14:00)
== END 2024-01-05 15:40 | disposition home or self-care (01) ==
LOC: INF 10:45
PROVIDERS: PCP Internal Medicine; Visit Provider Internal Medicine Medical Oncology
DX: C18.9 Malignant neoplasm of colon, unspecified (principal)
CPT/HCPCS: 80053; 85025; 96413; 96415; J0780; J1642; J7060; J8540; J9263; Q0162

== ENCOUNTER 2024-03-09 11:13 | Outpatient (CLI) | payer MEDICAID, SELFPAY ==
[2024-03-09] MEDS: SODIUM CHLORIDE 0.9% 10ML FLUSH SYRINGE 10 ML IV (11:28)
== END 2024-03-09 11:30 | disposition home or self-care (01) ==
LOC: LAB 11:15 → INF 11:19
PROVIDERS: PCP Internal Medicine; Visit Provider Internal Medicine Medical Oncology
DX: C18.9 Malignant neoplasm of colon, unspecified (principal)
CPT/HCPCS: 36591; 82378; J1642

== ENCOUNTER 2024-04-03 08:21 | Emergency (ER) | payer MEDICAID, SELFPAY ==
[2024-04-03] VITALS (8 sets, daily range): BP systolic 101–119; BP diastolic 68–77; PULSE 80–108; RESP 12–24; TEMP 36.7; O2SAT 95–97; BMI 27.6
--- NOTE | 2024-04-03 08:31 | ECG_ITS ---
APPROVED REPORT Exam: Resting ECG HR:106 bpm ECG Measurements Heart Rate 106 AXES MO 136 P 63 QRSd 92 QRS 84 QT 320 T 67 QTc 382 Conclusion SINUS TACHYCARDIA ABNORMAL RHYTHM ECG UNCONFIRMED REPORT EKG with sinus tachycardia. No ST elevation or depression. Ventricular rate of 106 bpm. QTc normal at 382. Electronically signed by : ZENAIDA LOWRY, 04/04/2024 07:01:41
--- NOTE | 2024-04-03 08:37 | PC.NURSE ---
covid/flu swab sent to lab
[2024-04-03 08:40] LABS: Coronavirus 19, PCR Not Detected (NotDetected); Influenza B, PCR Not Detected (NotDetected)
--- NOTE | 2024-04-03 08:40 | ED_ITS ---
Discharge Plan Disposition Patient Disposition: Home, Self-Care Prescriptions Prescriptions: New doxycycline hyclate 100 mg capsule 100 mg PO BID 7 Days Qty: 14 0RF ondansetron 4 mg tablet,disintegrating 4 mg PO Q8H PRN (Reason: nausea and vomiting) 4 Days Qty: 12 0RF No Action capecitabine 500 mg tablet 1,500 mg PO .COMPLEX Rx Instructions: 1,500 mg orally BID DAY 1-14, OFF 7 DAYS; ondansetron 4 mg tablet,disintegrating 4 mg PO Q6H PRN (Reason: nausea and vomiting) Patient Comments: DISSOLVE 1 TABLET IN MOUTH EVERY 4 TO 6 HOURS NEEDED FOR NAUSEA FOR VOMITING methocarbamol 500 mg tablet 500 mg PO DAILY Xarelto 10 mg tablet 10 mg PO DAILY ferrous sulfate 325 mg (65 mg iron) tablet,delayed release (DR/EC) 325 mg PO DAILY Qty: 30 5RF ascorbic acid (vitamin C) 500 mg tablet 500 mg PO DAILY Qty: 30 5RF Referrals Follow up/Referrals: Efra Ag DO [Primary Care Provider] - See instructions Activity Restrictions/Add. Instructions Additional Instructions/Restrictions: Follow-up with your primary care physician in the next 2-3 days. You are being prescribed doxycycline for pneumonia. Take this as prescribed. You are also being prescribed Zofran to help with nausea. Continue to drink plenty of fluids. Your kidney function was slightly decreased I encourage you to follow- up closely with your primary care physician to make sure it improves. They were flu symptoms can last several days. You can take Tylenol to help with symptoms. If you develop any new or worsening symptoms, or if you become concerned for your health for any reason, return to the emergency department for evaluation Clinical Impressions Clinical Impression: Influenza A, Bilateral pneumonia, BETTY (acute kidney injury) Stand Alone Forms Stand Alone Forms: Work/School Release Print Language Print Language: Portuguese Discharge ED Provider: Osvaldo [place] General Adult HPI General Chief complaint: Shortness of Breath/Dyspnea Stated complaint: weak, light headed, cough, surgery 1 week ago Time Seen by Provider: 04/03/24 08:39 Mode of Arrival: Wheelchair Source of Information: Patient History of Present Illness HPI narrative: Janina Snyder is a 58F with a history of colon cancer with metastatic disease status post colon resection and ostomy placement 1 month ago at the [facility] who presents to the emergency department for 1 week of productive cough and dizziness. Patient states that she feels like she might have the flu but it is been present for approximately 1 week and feels like she is not getting any better. She states that she is having worsening shortness of breath with exertion and get short of breath just walking across the room. She denies any new leg swelling or hemoptysis. She denies any chest pain but does report some pain in the middle of her back. She denies any vomiting. She reports that she feels like her mouth is dry but she has been drinking fluids. Related Data Home Medications ?Medication ?Instructions ?Recorded ?Confirmed capecitabine 500 mg tablet 1,500 mg PO .COMPLEX 10/06/23 04/03/24 ondansetron 4 mg disintegrating 4 mg PO Q6H PRN nausea and vomiting 10/06/23 04/03/24 tablet methocarbamol 500 mg tablet 500 mg PO DAILY 03/09/24 04/03/24 rivaroxaban 10 mg tablet (Xarelto) 10 mg PO DAILY 03/09/24 04/03/24 Previous Rx's ?Medication ?Instructions ?Recorded ascorbic acid (vitamin C) 500 mg 500 mg PO DAILY #30 tabs 08/24/23 tablet ferrous sulfate 325 mg (65 mg 325 mg PO DAILY iron #30 tabs 08/24/23 iron) tablet,delayed release doxycycline hyclate 100 mg capsule 100 mg PO BID 7 days #14 caps 04/03/24 ondansetron 4 mg disintegrating 4 mg PO Q8H PRN nausea and 04/03/24 tablet vomiting 4 days #12 tabs Allergies Allergy/AdvReac Type Severity Reaction Status Date / Time No Known Allergies Allergy Verified 03/09/24 10:47 [facility] Disclaimer: The information contained in this section may have been updated after the patient was seen, as this information can be updated by other users. Medical History Thyroid nodule Fracture of cervical vertebra Urine frequency Skin pain HLD (hyperlipidemia) Venous insufficiency (chronic) (peripheral) MILLA (obstructive sleep apnea) HTN (hypertension) Surgical History History of total abdominal hysterectomy and bilateral salpingo-oophorectomy Family History Other No significant family history Social History Smoking Status: Never smoker second hand exposure: No alcohol intake: never substance use type: denies use current occupational status: other Travel in the last 8 weeks: None Have you lived/traveled outside [place] in past 30 days?: No Contact w/someone who lives/traveled outside US past 30 days?: No Exposure to someone with infectious disease in past 14 days?: No Do you have a fever (greater than 100.4 F or 38 C)?: No Have you tested positive for COVID-19: No Exposed to someone with COVID-19 in past 14 days?: No Do you have a sore throat?: No Do you have a cough?: Yes Do you have any weakness?: Yes Do you have any diarrhea?: No Are you experiencing any unusual bleeding?: No Do you have any muscle aches/pain?: Yes Do you have any abdominal pain?: No Are you experiencing loss of taste or smell?: No Other Medical History Have you received the Flu Vaccine for this season: No Have you received the Pneumonia Vaccine: No ROS Obtained: Yes Systems reviewed as appropriate & no additional complaints except as documented Physical Exam General General appearance: alert and in no apparent distress Comment: Ill but non-toxic appearing Head Head exam: atraumatic Eye Eye exam: Present normal appearance ENT ENT exam: Present normal external ear exam Neck Neck exam: Present full ROM Chest Chest inspection: Present symmetric chest wall rise Respiratory Respiratory exam: Present normal lung sounds bilaterally and other (active dry cough); Absent respiratory distress, wheezes or stridor Cardiovascular Cardiovascular exam: Present normal rhythm and tachycardia Abdominal Exam Abdominal exam: Present soft; Absent tenderness or guarding Extremities Exam Extremities exam: Present normal inspection Back Exam Back exam: Present normal inspection Neurological Exam Neurological exam: Present alert and oriented X3 Psychiatric Psychiatric exam: Present normal affect Skin Skin exam: Present warm and dry Medical Decision Making Medical Records Screening: Per USPSTF and CDC recommendations, given the prevalence of disease in our region, it is our hospital?s policy to screen for HIV and viral Hepatitis for all patients aged 18 and over and those with ongoing risk factors. Nathaniel Inquiry Pt receiving controlled substance: No Vital Signs: 04/03/24 08:33 04/03/24 08:37 04/03/24 09:00 Temperature 98.0 F Temperature Source Oral Pulse Rate 108 H 98 H Pulse Rate [Left Radial] 105 H Respiratory Rate 12 20 24 Blood Pressure 119/77 109/75 L Blood Pressure [Right Arm] 119/77 Blood Pressure Mean Blood Pressure Mean [Right Arm] 91 02 Sat by Pulse Oximetry 95 97 95 Oxygen Delivery Method Room Air Room Air Room Air 04/03/24 09:15 04/03/24 10:00 04/03/24 10:30 Temperature Temperature Source Pulse Rate 98 H 86 87 Pulse Rate [Left Radial] Respiratory Rate 22 23 19 Blood Pressure 104/68 L 101/71 L Blood Pressure [Right Arm] Blood Pressure Mean 77 Blood Pressure Mean [Right Arm] 02 Sat by Pulse Oximetry 95 97 95 Oxygen Delivery Method Room Air Room Air 04/03/24 11:00 04/03/24 11:21 Temperature 98.0 F Temperature Source Pulse Rate 80 83 Pulse Rate [Left Radial] Respiratory Rate 20 17 Blood Pressure 111/73 111/73 Blood Pressure [Right Arm] Blood Pressure Mean 81 Blood Pressure Mean [Right Arm] 02 Sat by Pulse Oximetry 96 Oxygen Delivery Method Room Air Lab Data Lab Results 04/03/24 08:35: SARS-CoV-2 (PCR) Not detected, Influenza A Untype (PCR) Detected A, Influenza Type B (PCR) Not detected 04/03/24 08:55: WBC 9.2, RBC 4.11 L, Hgb 12.1 L, Hct 35.8 L, MCV 87.1, MCH 29.4, MCHC 33.8, RDW 13.2, Plt Count 249, MPV 9.3, Neut % (Auto) 84.0 H, Lymph % (Auto) 6.1 L, [place] % (Auto) 8.0, Eos % (Auto) 0.0 L, Baso % (Auto) 0.3, Neut # (Auto) 7.7, Lymph # (Auto) 0.6 L, [place] # (Auto) 0.7, Eos # (Auto) 0.0, Baso # (Auto) 0.0, Sodium 130 L, Potassium 3.4 L, Chloride 95 L, Carbon Dioxide 20 L, A nion Gap 18.4 H, BUN 51 H, Creatinine 1.30 H, Estimated Creat Clear 51, E stimated GFR 42 L, Est GFR ( Amer) 51 L, Glucose 157 H, Calcium 8.7, Total Bilirubin 0.8, AST 32, ALT 24, Alkaline Phosphatase 147 H, Troponin I < 0.01, NT-Pro-B Natriuret Pep 147 H, Total Protein 9.0 H D, Albumin 4.3, Globulin 4.7 H, Albumin/Globulin Ratio 0.9 L, HCV Ab DAI w/Rflx PCR Qn Negative, HIV Ag/Ab Combo Qual Negative 04/03/24 09:04: VBG pH 7.39, VBG pCO2 34.9 L, VBG pO2 41.6 H, VBG HCO3 20.7 L, V BG Total CO2 21.8 L, VBG O2 Saturation 76.8 H, VBG Base Excess -4.2 L, VBG Lactic Acid 1.5 04/03/24 08:55 04/03/24 08:55 Orders (Tests/Meds): ED MEDICATIONS Discontinued Medications Generic Name Dose Route Start Last Admin Trade Name Freq PRN Reason Stop Dose Admin Acetaminophen 1,000 mg 04/03/24 08:46 04/03/24 09:18 Acetaminophen 500mg Tab PO 04/03/24 08:47 Not Given ONCE ONE Heparin Sodium (Porcine) 300 unit 04/03/24 11:09 04/03/24 11:14 Heparin Lock Flush 500 Units/5ml Syr IV 04/03/24 11:10 300 unit ONCE ONE Administration Lactated Ringer's 500 mls @ 999 mls/hr 04/03/24 08:46 04/03/24 09:12 Lactated Ringer's 1000 Ml Bag IV 04/03/24 09:16 Not Given .Q31M ONE Lactated Ringer's 1,000 mls @ 999 mls/hr 04/03/24 09:11 04/03/24 09:16 Lactated Ringer's 1000 Ml Bag IV 04/03/24 10:11 Not Given .Q1H1M ONE Iopamidol 70 ml 04/03/24 09:29 04/03/24 09:30 Iopamidol-370 (76%);100ml Bottle IV 04/03/24 09:30 70 ml ONCE ONE Administration Sodium Chloride 50 ml 04/03/24 09:29 04/03/24 09:30 0.9 % Sodium Chloride 50 Ml Vial IV 04/03/24 09:30 50 ml ONCE ONE Administration Sodium Chloride 10 ml 04/03/24 09:29 04/03/24 09:30 Sodium Chloride 0.9% 10ml Syr (Rad Only) IV 04/03/24 09:30 10 ml ONCE ONE Administration ORDERS Category Date Time Status CT angio chest PE protocol Stat Cat Scan 04/03/24 08:46 Completed BNP [NT Pro Brain Natriuretic Pep.] Stat Lab 04/03/24 08:55 Completed CBC w/Auto Diff [Complete Blood Count Auto Diff] Stat Lab 04/03/24 08:55 Completed CMP [Comprehensive Metabolic Panel] Stat Lab 04/03/24 08:55 Completed HIV Combo Stat Lab 04/03/24 08:55 Completed Hepatitis C Ab Qual. W/ RFX Stat Lab 04/03/24 08:55 Completed Rapid PCR Covid and Flu A/B Stat Lab 04/03/24 08:35 Completed Trop I [Troponin I] Stat Lab 04/03/24 08:55 Completed VBG [Venous Blood Gas] Stat RT 04/03/24 09:04 Completed ECG Data Tracing #1: I reviewed this ECG and interpreted as documented below: EKG interpreted by me personally. Sinus tachycardia with ventricular rate of 106 bpm. QTc normal at 382, NV interval normal at 136. No ST elevations or depressions. Medical Decision Narrative: Janina Snyder is a 58-year-old female with a history of colon cancer with metastatic disease status post colon resection and ostomy placement 1 month ago presenting for complaints of 1 week of flulike symptoms with cough, dizziness and dehydration. On arrival, patient is tachycardic but hemodynamically stable, in no acute respiratory distress, maintaining appropriate oxygen saturation on room air, afebrile. Physical exam, stated above, revealed an ill but nontoxic- appearing female. Abdomen is soft, nontender nondistended. She has an ostomy in place and has had good output from it. Cardiopulmonary exam is unremarkable for any wheezing, rales or rhonchi. No murmurs. She does have a dry cough. She appears somewhat dry in her mucous membranes but no aphthous ulcers or oral lesions are appreciated. Given patient's tachycardia in the setting of cancer with recent surgery, will obtain CT PE to rule out pulmonary embolism Dental diagnosis includes, but is not limited to: Flu, COVID, pneumonia, pulmonary embolism electrolyte derangement, dehydration, ACS, among others. Patient's workup in the emergency department included: COVID/flu swab, CMP, VBG, CBC, troponin, BNP, EKG, CT pulmonary embolism. Will administer 1 L lactated ringer and [address] PE did not demonstrate any pulm embolism but she does have bilateral airspace opacities concerning for multifocal pneumonia. See radiology report for details. Labs interpreted by me as well. No leukocytosis, no significant anemia, VBG with lactate normal at 1.5 and pH normal at 7.39. Mild hyponatremia of 130, mild hypokalemia of 3.4, anion gap mildly elevated 18.4, mild BETTY with creatinine of 1.3 and BUN of 51. This is likely prerenal in nature given patient's dehydration and dry mucous membranes. Liver enzymes unremarkable. Initial troponin less than 0.01. BNP unremarkable and nonactionable. Patient is flu a positive Patient has the flu with evidence of bilateral multifocal pneumonia. She has not been hypoxic and has maintained appropriate oxygen saturations on room air. Given this, is felt that she is appropriate for outpatient management of her pneumonia and is being sent with a prescription for doxycycline. She was instructed to take Tylenol and ibuprofen to help with her flulike symptoms. She was instructed to follow with her primary care physician for close follow-up of her BETTY and symptom improvement. All questions were answered. She demonstrated understanding and was in agreement this plan. She was then discharged from the emergency department in stable condition. Critical Care Critical Care Time Critical Care Time: No
--- NOTE | 2024-04-03 08:46 | CT_ITS ---
FINAL REPORT TECHNIQUE: Thin section axial CT images were performed from the lung apices to the upper abdomen after the administration of IV contrast. 3-D and MIP reconstructions performed. This study was performed with techniques to keep radiation doses as low as reasonably achievable (ALARA). Individualized dose reduction techniques using automated exposure control or adjustment of mA and/or kV according to the patient''s size were employed. CLINICAL HISTORY: SOB, hx of colon cancer COMPARISON: 11/11/2023 FINDINGS: There is no evidence for pulmonary embolism. The thoracic aorta is at the upper limits of normal in size measuring 39 mm. There is no axillary adenopathy. There is no mediastinal or hilar adenopathy. The heart size is normal. There is no pleural or pericardial effusion. There are patchy airspace opacities bilaterally in the lower lobes which are new from prior exam consistent with pneumonia. There is a 4 mm right midlung nodule on image 60 of series 5 which is stable and most likely benign. Limited images of the upper abdomen are unremarkable. IMPRESSION: No PE. Significant multifocal pneumonia in the lower lobes. Thoracic aorta at the upper limits of normal in size. Reviewed, Interpreted and Dictated by Mikey Echevarria MD Transcribed by Nora Molina Authenticated and [facility]
[2024-04-03 09:10] LABS: Lactate Venous 1.5 mmol/L (0.4-2.0); VBG Base Excess -4.2 mmol/L (-2.4-2.3); VBG HCO3 20.7 mmol/L (23-30); VBG Oxygen Saturation 76.8 % (50-70); VBG PCO2 34.9 mmol/L (35-51); VBG PH 7.39 mmol/L (7.31-7.41); VBG PO2 41.6 mmol/L (28-40); VBG Total CO2 21.8 mmol/L (23-27)
[2024-04-03 09:12] LABS: Basophils % 0.3 % (0.1-2.0); Hematocrit 35.8 % (37.0-47.0); Hemoglobin 12.1 g/dL (12.2-16.2); Lymphocytes # 0.6 K/mm3 (0.7-4.5); Lymphocytes % 6.1 % (10-50); Mean Corpuscular HGB Conc 33.8 g/dL (31.8-35.4); Mean Corpuscular Hemoglobin 29.4 pg (27.0-31.2); Mean Corpuscular Volume 87.1 fl (81-99); Mean Platelet Volume 9.3 fl (7.4-10.4); Monocytes # 0.7 K/mm3 (0.1-1.0); Neutrophils # 7.7 K/mm3 (1.8-7.8); Platelet Count 249 K/mm3 (142-424); Red Blood Count 4.11 M/mm3 (4.20-5.40); Red Cell Distribution Width 13.2 % (11.5-17.5); White Blood Count 9.2 K/mm3 (4.8-10.8)
[2024-04-03 09:14] LABS: Albumin Level 4.3 g/dl (3.5-5.0); Chloride 95 mmol/L (98-107); Potassium 3.4 mmoL/L (3.5-5.1); Sodium 130 mmol/L (136-145)
[2024-04-03 09:17] LABS: Alanine Aminotransferase 24 U/L (12-78); Albumin/Globulin Ratio 0.9 (1.1-1.8); Alkaline Phosphatase 147 U/L (38-126); Anion Gap 18.4 mEq/L (5-15); Aspartate Amino Transferase 32 U/L (14-36); Bilirubin,Total 0.8 mg/dl (0.2-1.3); Blood Urea Nitrogen 51 mg/dl (7-17); Calcium 8.7 mg/dl (8.4-10.2); Carbon Dioxide 20 mmol/L (22.0-30.0); Creatinine Clearance Estimated 51 mL/min (50-200); Estimated Glomerular Filt Rate 42 ml/min (>60); GFR (African American) 51 ML/MIN (>60); Globulin 4.7 g/dL (1.3-3.2); Glucose 157 mg/dl (74-100)
[2024-04-03 09:27] LABS: NT Pro Brain Natriuretic Pep. 147 pg/mL (0-125)
[2024-04-03] MEDS: IOPAMIDOL-370 (76%);100ML BOTTLE 70 ML IV (09:30)
[2024-04-03] MEDS: SODIUM CHLORIDE 0.9% 10ML SYR (RAD ONLY) 10 ML IV (09:30)
[2024-04-03] MEDS: 0.9 % SODIUM CHLORIDE 50 ML VIAL IV (09:30)
[2024-04-03 09:31] LABS: Troponin I < 0.01 ng/ml (0.00-0.034)
[2024-04-03 09:48] LABS: Influenza A, PCR Detected (NotDetected)
[2024-04-03 10:24] LABS: HIV Combo NEGATIVE (Negative)
[2024-04-03 10:31] LABS: Hepatitis C Ab Qual. W/ RFX NEGATIVE (Negative)
== END 2024-04-03 11:22 | disposition home or self-care (01) ==
PROVIDERS: Emergency Provider Student in an Organized Health Care Education/Training Program; PCP Internal Medicine
DX: N17.9 Acute kidney failure, unspecified (principal); J18.9 Pneumonia, unspecified organism; J10.1 Influenza due to other identified influenza virus with other respiratory manifestations; R05.8 Other specified cough; R42 Dizziness and giddiness; R06.02 Shortness of breath
CPT/HCPCS: 71275; 80053; 82803; 83880; 84484; 85025; 86803; 87389; 87636; 93005; 96361; 96374; 99285; J1642; J7120; Q9967

== ENCOUNTER 2024-04-10 16:52 | Emergency (ER) | payer MEDICAID, SELFPAY ==
[2024-04-10 17:18] VITALS: BP 128/82; PULSE 96; RESP 16; TEMP 36.7; O2SAT 96; BMI 25.4
--- NOTE | 2024-04-10 20:00 | XR_ITS ---
PROCEDURE INFORMATION: Exam: XR Chest Exam date and time: 04/10/2024 9:29 PM Age: 58 years old Clinical indication: Cough and shortness of breath; Additional info: Recent flu/pna, worsening cough/soa TECHNIQUE: Imaging protocol: Radiologic exam of the chest. Views: 2 views. COMPARISON: CT ANGIO CHEST PE PROTOCOL 04/03/2024 9:30 AM FINDINGS: Tubes, catheters and devices: Laurie catheter tip projected at atrial caval junction. Lungs: Right retrocardiac posterior lower lobar opacity. Pleural spaces: Unremarkable. No pleural effusion. No pneumothorax. Heart/Mediastinum: Unremarkable. No cardiomegaly. Bones/joints: Unremarkable. IMPRESSION: Persistent left lower lobar infiltration.
--- NOTE | 2024-04-10 20:00 | PC.NURSE ---
pt moved to room 4 in ED. assessment completed. VSS. pt given tape for colostomy bag and a warm blanket per request.
--- NOTE | 2024-04-10 20:01 | ED_ITS ---
Discharge Plan Disposition Patient Disposition: Home, Self-Care Condition: Good Prescriptions Prescriptions: New levofloxacin 750 mg tablet 750 mg PO DAILY 7 Days Qty: 7 0RF prednisone 20 mg tablet 40 mg PO DAILY 4 Days Qty: 8 0RF No Action capecitabine 500 mg tablet 1,500 mg PO .COMPLEX Rx Instructions: 1,500 mg orally BID DAY 1-14, OFF 7 DAYS; ondansetron 4 mg tablet,disintegrating 4 mg PO Q6H PRN (Reason: nausea and vomiting) Patient Comments: DISSOLVE 1 TABLET IN MOUTH EVERY 4 TO 6 HOURS NEEDED FOR NAUSEA FOR VOMITING methocarbamol 500 mg tablet 500 mg PO DAILY Xarelto 10 mg tablet 10 mg PO DAILY ferrous sulfate 325 mg (65 mg iron) tablet,delayed release (DR/EC) 325 mg PO DAILY Qty: 30 5RF ascorbic acid (vitamin C) 500 mg tablet 500 mg PO DAILY Qty: 30 5RF doxycycline hyclate 100 mg capsule 100 mg PO BID 7 Days Qty: 14 0RF ondansetron 4 mg tablet,disintegrating 4 mg PO Q8H PRN (Reason: nausea and vomiting) 4 Days Qty: 12 0RF Referrals Follow up/Referrals: Efra Ag DO [Primary Care Provider] - See instructions Activity Restrictions/Add. Instructions Additional Instructions/Restrictions: You were evaluated in the emergency department today. Your workup is again concerning for pneumonia, and since you have had no symptomatic improvement with doxycycline I am going to treat with Levaquin. Please follow-up closely with your primary care provider over the next week for reassessment. I recommended albuterol inhaler given that she responded well to breathing treatment here. Use 2 puffs every 4 hours as needed for wheezing. Clinical Impressions Clinical Impression: Bilateral wheezing, Left lower lobe pneumonia Instructions Patient Instructions: DI for Pneumonia -- Adult Print Language Print Language: Turkmen Discharge ED Provider: Mady Arias General Adult HPI General Chief complaint: Shortness of Breath/Dyspnea Stated complaint: SOA,possible reaction to medicine,weakness Time Seen by Provider: 04/10/24 19:50 Mode of Arrival: Ambulatory Source of Information: Patient Description of Symptoms (Recalled from ER Triage Doc. by RN): Patient reports being diagnosed with flu a and pneumonia approx 1 week ago and now the antibiotic she has been taken has made her break out and she is continuing to have difficulty breathing. History of Present Illness HPI narrative: This patient is a 58-year-old female with a history of colon cancer status post resection with colostomy on chemo, hypertension, MILLA presenting to the emergency department for evaluation with concern for continued cough and shortness of breath in the setting of recent flu and pneumonia. She states that she just finished up the doxycycline today but is not feeling any better. She notes that especially when she lies down at night, she hears wheezing and abnormal lung sounds. She notes that at work, she has to stop every few feet while walking because she feels short of breath. She is not having any current fevers, chest pain, abdominal pain, vomiting, or other concerns. She has good ostomy output Related Data Home Medications ?Medication ?Instructions ?Recorded ?Confirmed capecitabine 500 mg tablet 1,500 mg PO .COMPLEX 10/06/23 04/03/24 ondansetron 4 mg disintegrating 4 mg PO Q6H PRN nausea and vomiting 10/06/23 04/03/24 tablet methocarbamol 500 mg tablet 500 mg PO DAILY 03/09/24 04/03/24 rivaroxaban 10 mg tablet (Xarelto) 10 mg PO DAILY 03/09/24 04/03/24 Previous Rx's ?Medication ?Instructions ?Recorded ascorbic acid (vitamin C) 500 mg 500 mg PO DAILY #30 tabs 08/24/23 tablet ferrous sulfate 325 mg (65 mg 325 mg PO DAILY iron #30 tabs 08/24/23 iron) tablet,delayed release doxycycline hyclate 100 mg capsule 100 mg PO BID 7 days #14 caps 04/03/24 ondansetron 4 mg disintegrating 4 mg PO Q8H PRN nausea and 04/03/24 tablet vomiting 4 days #12 tabs levofloxacin 750 mg tablet 750 mg PO DAILY 7 days #7 tabs 04/10/24 prednisone 20 mg tablet 40 mg (2 x 20 mg) PO DAILY 4 days 04/10/24 #8 tabs Allergies Allergy/AdvReac Type Severity Reaction Status Date / Time No Known Allergies Allergy Verified 03/09/24 10:47 [facility] Disclaimer: The information contained in this section may have been updated after the patient was seen, as this information can be updated by other users. Medical History Thyroid nodule Fracture of cervical vertebra Urine frequency Skin pain HLD (hyperlipidemia) Venous insufficiency (chronic) (peripheral) MILLA (obstructive sleep apnea) HTN (hypertension) Surgical History History of total abdominal hysterectomy and bilateral salpingo-oophorectomy Family History Other No significant family history Social History Smoking Status: Unknown if ever smoked second hand exposure: No alcohol intake: never substance use type: denies use current occupational status: other Travel in the last 8 weeks: None Have you lived/traveled outside [place] in past 30 days?: No Contact w/someone who lives/traveled outside US past 30 days?: No Exposure to someone with infectious disease in past 14 days?: No Do you have a fever (greater than 100.4 F or 38 C)?: No Have you tested positive for COVID-19: No Exposed to someone with COVID-19 in past 14 days?: No Do you have a sore throat?: No Do you have a cough?: No Do you have any weakness?: No Do you have any diarrhea?: No Are you experiencing any unusual bleeding?: No Do you have any muscle aches/pain?: No Do you have any abdominal pain?: No Are you experiencing loss of taste or smell?: No Other Medical History Have you received the Flu Vaccine for this season: No Have you received the Pneumonia Vaccine: No ROS Obtained: Yes All systems reviewed & no additional complaints except as documented Physical Exam General General appearance: alert and in no apparent distress Head Head exam: atraumatic and normocephalic Eye Eye exam: Present normal appearance, PERRL and EOMI ENT ENT exam: Present normal exam, normal oropharynx, mucous membranes moist and normal external ear exam Neck Neck exam: Present normal inspection, full ROM and trachea midline; Absent tenderness Chest Chest inspection: Present normal inspection and symmetric chest wall rise; Absent tenderness Respiratory Respiratory exam: Present wheezes and other (No increased work of breathing. Wheezes and rhonchi heard in the bilateral lung bases); Absent respiratory distress, stridor or accessory muscle use Cardiovascular Cardiovascular exam: Present regular rate and normal rhythm Abdominal Exam Abdominal exam: Present soft; Absent distention, tenderness or guarding Extremities Exam Extremities exam: Present normal inspection, full ROM and normal capillary refill; Absent tenderness or edema Back Exam Back exam: Present normal inspection and full ROM; Absent tenderness Neurological Exam Neurological exam: Present alert, oriented X3, CN II-XII intact and normal gait; Absent motor sensory deficit Psychiatric Psychiatric exam: Present normal affect and normal mood Skin Skin exam: Present warm and dry Medical Decision Making Medical Records Medical records reviewed: Yes I reviewed the patient's medical records. Screening: Per USPSTF and CDC recommendations, given the prevalence of disease in our region, it is our hospital?s policy to screen for HIV and viral Hepatitis for all patients aged 18 and over and those with ongoing risk factors. Nathaniel Inquiry Pt receiving controlled substance: No Vital Signs: 04/10/24 17:18 04/10/24 20:30 04/10/24 23:15 Temperature 98.1 F 97.9 F Temperature Source Oral Oral Pulse Rate 95 H 96 H Pulse Rate [Radial] 96 H Respiratory Rate 16 18 Blood Pressure 115/74 116/67 Blood Pressure [Right Arm] 128/82 Blood Pressure Mean [Right Arm] 97 Blood Pressure Source [Right Arm] Automatic Cuff Blood Pressure Position [Right Arm] Sitting 02 Sat by Pulse Oximetry 96 98 Oxygen Delivery Method Room Air Room Air Lab Data Lab results reviewed: Yes I reviewed the patient's lab results. Lab Results 04/10/24 20:28: WBC 5.3, RBC 3.88 L, Hgb 11.4 L, Hct 34.3 L, MCV 88.4, MCH 29.4, MCHC 33.2, RDW 13.2, Plt Count 404, MPV 8.8, Neut % (Auto) 51.0, Lymph % (Auto) 35.2, Callaway % (Auto) 12.6 H, Eos % (Auto) 0.4, Baso % (Auto) 0.6, Neut # (Auto) 2.7, Lymph # (Auto) 1.9, Callaway # (Auto) 0.7, Eos # (Auto) 0.0, Baso # (Auto) 0.0, Sodium 134 L, Potassium 4.0, Chloride 105, Carbon Dioxide 20 L, Anion Gap 13.0, BUN 29 H, Creatinine 0.80, Estimated Creat Clear 77, Estimated GFR 73, Est GFR ( Amer) 89, Glucose 105 H, Lactate 0.9, Calcium 9.3, Total Bilirubin 0.5, AST 34, ALT 22, Alkaline Phosphatase 139 H, NT-Pro-B Natriuret Pep 210 H, Total Protein 8.1, Albumin 4.2, Globulin 3.9 H, Albumin/Globulin Ratio 1.1 04/10/24 20:28 04/10/24 20:28 Orders (Tests/Meds): ED MEDICATIONS Discontinued Medications Generic Name Dose Route Start Last Admin Trade Name Freq PRN Reason Stop Dose Admin Albuterol Sulfate 2 puff 04/10/24 22:53 04/10/24 23:23 Albuterol-Hfa 90mcg/Puff Inhaler 8gm 04/10/24 22:54 Not Given ONCE ONE Albuterol/Ipratropium 3 ml 04/10/24 20:00 04/10/24 20:04 Ipratropium/Albuterol 3 Ml Neb 04/10/24 20:01 3 ml ONCE ONE Administration Levofloxacin 750 mg 04/10/24 22:53 04/10/24 23:02 Levofloxacin 750 Mg Tablet PO 04/10/24 22:54 750 mg ONCE ONE Administration Miscellaneous 1 unit 04/10/24 22:53 04/10/24 23:24 Aerochamber/Optihaler MC 04/10/24 22:54 Not Given ONCE ONE ORDERS Category Date Time Status CXR 2 view (NOT portable) [XR chest 2V] Stat Exams 04/10/24 20:00 Completed BNP [NT Pro Brain Natriuretic Pep.] Stat Lab 04/10/24 20:28 Completed CBC w/Auto Diff [Complete Blood Count Auto Diff] Stat Lab 04/10/24 20:28 Completed CMP [Comprehensive Metabolic Panel] Stat Lab 04/10/24 20:28 Completed Lactic Acid Stat Lab 04/10/24 20:28 Completed ECG Data Tracing #1: I reviewed this ECG and interpreted as documented below: Normal sinus rhythm with a ventricular rate of 89 bpm. Motion artifact. No acute ST changes concerning for ischemia. Normal axis and intervals. ECG initial impression date: 04/10/24 ECG initial impression time: 20:34 Medical Decision Narrative: In summary, this patient is a 58-year-old female presenting to the Emergency Department for evaluation of continued cough and shortness of breath in the setting of recent flu/pneumonia. Differential diagnoses considered include but are not limited to viral syndrome, pneumonia, failed outpatient treatment, respiratory failure, CHF. Ruling out the most morbid conditions drove assessment. It should be noted patient's history includes colon cancer on chemo which may or may not be at goal therapy. This complicates all aspects of care by increasing patient's risk for morbidity. I reviewed patient's past medical records and noted previous evaluation by oncology 03/09/2024 as well as evaluation in the ED 04/03/2024 for shortness of breath with diagnosis of pneumonia. She was discharged with doxycycline. On exam, the patient is sitting upright in no acute distress with normal vital signs on cardiac telemetry. She has no increased work of breathing, is not tachypneic or tachycardic, oxygen saturation is normal. She has bilateral lung wheezing and rhonchi, especially in the bases. Workup included CBC, CMP, BNP, two-view chest x-ray as well as EKG. She was given DuoNeb given wheezing to assess for symptomatic improvement. I independently interpreted chest x-ray prior to the radiologist read and noted assessment consolidation concerning for pneumonia. Please see their read for final interpretation. Labs were obtained that demonstrated reassuring CBC with no significant leukocytosis. She does have mild anemia. Chemistry demonstrates very mild hyponatremia and mildly elevated BUN, but otherwise reassuring. No significant elevation in BNP. On reassessment, patient had good improvement after administration of DuoNeb. She has less wheezing and feels less short of breath. Given this, I advised that I would recommend treatment with an albuterol inhaler. She states that she is not going to use that because she knows someone who does not have good response to it. I explained risk versus benefit to her as well as any potential side effects. I recommended it especially that she tolerated the albuterol inhaler so well. She declined. Given that she responded, we will treat with a short course of prednisone. Ultimately, given continued consolidation and symptoms without clinical improvement, will treat with Levaquin. Vitals are reassuring cardiac telemetry and I feel that she is appropriate for discharge home with close follow-up as an outpatient I advised that she follow-up very closely outpatient with primary care and gave strict return precautions. Critical Care Critical Care Time Critical Care Time: No
[2024-04-10] MEDS: IPRATROPIUM/ALBUTEROL 3 ML NEB IH (20:04)
[2024-04-10 20:30] VITALS: BP 115/74; PULSE 95; O2SAT 98
--- NOTE | 2024-04-10 20:32 | PC.NURSE ---
port to right chest accessed at this time. labs drawn and sent. call light in reach. VSS. family at bs. pt voices no needs.
--- NOTE | 2024-04-10 20:33 | ECG_ITS ---
APPROVED REPORT Exam: Resting ECG HR:89 bpm ECG Measurements Heart Rate 89 AXES NV 159 P 71 QRSd 100 QRS 81 QT 360 T 79 QTc 407 Conclusion SINUS RHYTHM NORMAL ECG UNCONFIRMED REPORT Electronically signed by : ESTEFANI GROSS, 04/10/2024 23:04:49
[2024-04-10 20:43] LABS: Basophils % 0.6 % (0.1-2.0); Eosinophils % 0.4 % (0.1-12.0); Hematocrit 34.3 % (37.0-47.0); Hemoglobin 11.4 g/dL (12.2-16.2); Lymphocytes # 1.9 K/mm3 (0.7-4.5); Lymphocytes % 35.2 % (10-50); Mean Corpuscular HGB Conc 33.2 g/dL (31.8-35.4); Mean Corpuscular Hemoglobin 29.4 pg (27.0-31.2); Mean Corpuscular Volume 88.4 fl (81-99); Mean Platelet Volume 8.8 fl (7.4-10.4); Monocytes # 0.7 K/mm3 (0.1-1.0); Monocytes % 12.6 % (1.7-9.3); Neutrophils # 2.7 K/mm3 (1.8-7.8); Platelet Count 404 K/mm3 (142-424); Red Blood Count 3.88 M/mm3 (4.20-5.40); Red Cell Distribution Width 13.2 % (11.5-17.5); White Blood Count 5.3 K/mm3 (4.8-10.8)
[2024-04-10 21:03] LABS: Albumin Level 4.2 g/dl (3.5-5.0); Chloride 105 mmol/L (98-107); Sodium 134 mmol/L (136-145)
[2024-04-10 21:06] LABS: Alanine Aminotransferase 22 U/L (12-78); Albumin/Globulin Ratio 1.1 (1.1-1.8); Alkaline Phosphatase 139 U/L (38-126); Aspartate Amino Transferase 34 U/L (14-36); Bilirubin,Total 0.5 mg/dl (0.2-1.3); Blood Urea Nitrogen 29 mg/dl (7-17); Calcium 9.3 mg/dl (8.4-10.2); Carbon Dioxide 20 mmol/L (22.0-30.0); Creatinine Clearance Estimated 77 mL/min (50-200); Estimated Glomerular Filt Rate 73 ml/min (>60); GFR (African American) 89 ML/MIN (>60); Globulin 3.9 g/dL (1.3-3.2); Glucose 105 mg/dl (74-100); Total Protein,Serum 8.1 g/dl (6.3-8.2)
[2024-04-10 21:07] LABS: Lactic Acid 0.9 mmol/L (0.7-2.1)
[2024-04-10 21:15] LABS: NT Pro Brain Natriuretic Pep. 210 pg/mL (0-125)
--- NOTE | 2024-04-10 21:51 | PC.NURSE ---
rounded on pt at this time. pt voices no needs. call light in reach. VSS
[2024-04-10] MEDS: levoFLOXacin 750 MG TABLET PO (23:02)
[2024-04-10 23:15] VITALS: BP 116/67; PULSE 96; RESP 18; TEMP 36.6; O2SAT 97
== END 2024-04-10 23:17 | disposition home or self-care (01) ==
PROVIDERS: Emergency Provider Emergency Medicine; PCP Internal Medicine
DX: J18.9 Pneumonia, unspecified organism (principal); R06.2 Wheezing; R05.9 Cough, unspecified; R06.02 Shortness of breath; C18.9 Malignant neoplasm of colon, unspecified; I10 Essential (primary) hypertension; G47.33 Obstructive sleep apnea (adult) (pediatric)
CPT/HCPCS: 71046; 80053; 83605; 83880; 85025; 93005; 99284; J7620

== ENCOUNTER 2024-04-18 14:12 | Outpatient (CLI) | payer MEDICAID, SELFPAY ==
[2024-04-18] MEDS: SODIUM CHLORIDE 0.9% 10ML FLUSH SYRINGE 10 ML IV (14:30)
[2024-04-18 14:37] LABS: Basophils % 0.4 % (0.1-2.0); Eosinophils # 0.1 K/mm3 (0.0-0.4); Eosinophils % 1.4 % (0.1-12.0); Hematocrit 31.3 % (37.0-47.0); Hemoglobin 10.2 g/dL (12.2-16.2); Lymphocytes # 1.4 K/mm3 (0.7-4.5); Lymphocytes % 27.5 % (10-50); Mean Corpuscular HGB Conc 32.6 g/dL (31.8-35.4); Mean Corpuscular Hemoglobin 29.8 pg (27.0-31.2); Mean Corpuscular Volume 91.5 fl (81-99); Monocytes # 0.5 K/mm3 (0.1-1.0); Monocytes % 10.5 % (1.7-9.3); Neutrophils # 3.1 K/mm3 (1.8-7.8); Platelet Count 203 K/mm3 (142-424); Red Blood Count 3.42 M/mm3 (4.20-5.40); White Blood Count 5.1 K/mm3 (4.8-10.8)
[2024-04-18 15:13] LABS: Alanine Aminotransferase 21 U/L (12-78); Albumin Level 3.2 g/dl (3.5-5.0); Alkaline Phosphatase 94 U/L (38-126); Anion Gap 5.9 mEq/L (5-15); Aspartate Amino Transferase 27 U/L (14-36); Bilirubin,Total 0.3 mg/dl (0.2-1.3); Blood Urea Nitrogen 18 mg/dl (7-17); Calcium 8.5 mg/dl (8.4-10.2); Carbon Dioxide 26 mmol/L (22.0-30.0); Chloride 107 mmol/L (98-107); Estimated Glomerular Filt Rate 85 ml/min (>60); GFR (African American) 103 ML/MIN (>60); Globulin 3.1 g/dL (1.3-3.2); Glucose 92 mg/dl (74-100); Potassium 3.9 mmoL/L (3.5-5.1); Sodium 135 mmol/L (136-145); Total Protein,Serum 6.3 g/dl (6.3-8.2)
[2024-04-19 08:54] LABS: CEA 5.7 ng/mL (0.0-4.7)
== END 2024-04-18 14:30 | disposition home or self-care (01) ==
LOC: INF 14:13
PROVIDERS: PCP Internal Medicine; Visit Provider Internal Medicine Medical Oncology
DX: C18.9 Malignant neoplasm of colon, unspecified (principal)
CPT/HCPCS: 36591; 80053; 82378; 85025; J1642

== ENCOUNTER 2024-04-19 07:05 | Outpatient (CLI) | payer MEDICAID, SELFPAY ==
[2024-04-19 09:35] LABS: Microscopic, Urine URINE MICROSCOPIC (MICROSCOPIC)
[2024-04-19 09:56] LABS: Appearance,Urine Clear (Clear); Color,Urine Yellow (Yellow)
[2024-04-19 09:57] LABS: Bilirubin,Urine Negative (Negative); Blood, Urine Negative (Negative); Glucose,Urine (UA) Negative (Negative); Ketones,Urine Negative (Negative); Nitrate,Urine Negative (Negative); Protein,Urine Negative (Negative); Specific Gravity, Urine >= 1.030 (1.005-1.030); Urobilinogen,Urine 0.2 EU/dl (0.2)
[2024-04-19 09:58] LABS: Leukocyte Esterase,Urine Negative (Negative); RBC,Urine Occasional #/hpf (0-3)
== END 2024-04-19 23:59 | disposition home or self-care (01) ==
PROVIDERS: PCP Internal Medicine; Visit Provider Internal Medicine Medical Oncology
DX: C18.9 Malignant neoplasm of colon, unspecified (principal)
CPT/HCPCS: 81001

== ENCOUNTER 2024-04-28 10:45 | Outpatient (CLI) | payer MEDICAID, SELFPAY ==
--- NOTE | 2024-04-28 10:46 | CT_ITS ---
FINAL REPORT TECHNIQUE: Oral and IV contrast enhanced exam This study was performed with techniques to keep radiation doses as low as reasonably achievable, (ALARA). Individualized dose reduction techniques using automated exposure control or adjustment of mA and/or kV according to the patient's size were employed. CLINICAL HISTORY: maligent neoplasm of colon COMPARISON: 11/11/2023 FINDINGS: Abdomen: Lung bases are clear. The gallbladder is unremarkable. There is an irregular hypodense lesion in the liver dome, measuring 46 x 36 mm in size, was previously 24 x 22 mm in size, consistent with progression of liver metastases. There is a second lesion near the right hepatic vein/IVC junction in the central liver, which measures 21 mm, was previously 10 mm. There is a new mass in the lateral aspect of the right liver best seen on image #17, which measures 12 mm in size. The spleen, pancreas and adrenal glands are unremarkable. Kidneys show no mass or obstruction, with a stable parapelvic left renal cyst noted. No bowel obstruction or fluid collection is seen. Pelvis: The appendix is not visualized. Postoperative changes are present in the distal colon. The uterus has been surgically resected. The left-sided ostomy noted on the prior CT remains present. Pelvic bowel loops are unremarkable. No fluid collection or adenopathy is seen. IMPRESSION: Worsening liver metastases when compared to the prior CT of 11/11/2023 as described. No evidence of metastatic adenopathy, bowel obstruction, or peritoneal disease. Reviewed, Interpreted and Dictated by Mikey Echevarria MD Transcribed by Patti Pack Authenticated and [facility]
[2024-04-28] MEDS: SODIUM CHLORIDE 0.9% 10ML SYR (RAD ONLY) 10 ML IV (11:24)
[2024-04-28] MEDS: IOPAMIDOL-370 (76%);100ML BOTTLE 75 ML IV (11:24)
== END 2024-04-28 23:59 | disposition home or self-care (01) ==
LOC: RAD 10:46
PROVIDERS: PCP Internal Medicine; Visit Provider Internal Medicine Medical Oncology
DX: C18.9 Malignant neoplasm of colon, unspecified (principal)
CPT/HCPCS: 74177; J1642; Q9967

== ENCOUNTER 2024-05-02 08:08 | Outpatient (CLI) | payer MEDICAID, SELFPAY ==
[2024-05-02] VITALS (27 sets, daily range): BP systolic 94–128; BP diastolic 45–77; PULSE 62–86; RESP 17–18; TEMP 36.6; O2SAT 100
[2024-05-02] MEDS: SODIUM CHLORIDE 0.9% 50ML BAG 50 ML IV (08:53)
[2024-05-02] MEDS: SODIUM CHLORIDE 0.9% IV (08:53)
[2024-05-02] MEDS: BEVACIZUMAB AWWB IV (08:53)
[2024-05-02] MEDS: DEXAMETHASONE 4MG TABLET 12 MG PO (10:06)
[2024-05-02] MEDS: ONDANSETRON 4MG ODT 16 MG SL (10:07)
[2024-05-02] MEDS: DEXTROSE 5% IV ×2 (10:43→12:35)
[2024-05-02] MEDS: DEXTROSE 5 % IN WATER 100 ML 200 ML IV (10:43)
[2024-05-02] MEDS: IRINOTECAN HCL IV (10:43)
[2024-05-02] MEDS: WATER IV ×2 (10:43→12:35)
[2024-05-02] MEDS: LEUCOVORIN CALCIUM IV (12:35)
[2024-05-02] MEDS: FLUOROURACIL 500MG/10ML VIAL 700 MG IV (15:19)
== END 2024-05-02 15:35 | disposition home or self-care (01) ==
LOC: INF 08:10
PROVIDERS: PCP Internal Medicine; Visit Provider Internal Medicine Medical Oncology
DX: C18.9 Malignant neoplasm of colon, unspecified (principal)
CPT/HCPCS: 96411; 96413; 96415; 96417; J0640; J7060; J8540; J9190; J9206; Q0162; Q5107

== ENCOUNTER 2024-05-04 11:05 | Outpatient (CLI) | payer MEDICAID, SELFPAY ==
[2024-05-04] MEDS: DEXAMETHASONE 4MG/ML 5ML MDV 20 MG (11:10)
--- NOTE | 2024-05-04 11:15 | PC.NURSE ---
1000-pt called to report s/s of severe facial flushing, facial itching and pain, and chest itching. rn notified dr. zimmerman of s/s, pt advised to come in to have home chemo unhooked and assessed per chemo rn.
== END 2024-05-04 11:15 | disposition home or self-care (01) ==
PROVIDERS: PCP Family Medicine; Visit Provider Internal Medicine Medical Oncology
DX: C18.9 Malignant neoplasm of colon, unspecified (principal)
CPT/HCPCS: 96374; G0463; J1100; J1642

== ENCOUNTER 2024-05-16 08:28 | Outpatient (CLI) | payer MEDICAID, SELFPAY ==
--- NOTE | 2024-05-16 08:30 | PC.NURSE ---
0830-pt confused on treatment day; d/c home
== END 2024-05-16 09:27 | disposition home or self-care (01) ==
LOC: INF 08:29
PROVIDERS: Visit Provider Internal Medicine Medical Oncology
DX: C18.9 Malignant neoplasm of colon, unspecified (principal)

== ENCOUNTER 2024-05-23 08:33 | Outpatient (CLI) | payer MEDICAID, SELFPAY ==
[2024-05-23] VITALS (9 sets, daily range): BP systolic 106–128; BP diastolic 54–75; PULSE 64–77; RESP 18–20; TEMP 36.4; O2SAT 98–99; BMI 27.8
[2024-05-23 08:56] LABS: Basophils % 0.9 % (0.1-2.0); Eosinophils # 0.1 K/mm3 (0.0-0.4); Eosinophils % 2.5 % (0.1-12.0); Hematocrit 32.3 % (37.0-47.0); Hemoglobin 10.3 g/dL (12.2-16.2); Lymphocytes # 1.3 K/mm3 (0.7-4.5); Lymphocytes % 41.8 % (10-50); Mean Corpuscular HGB Conc 31.9 g/dL (31.8-35.4); Mean Corpuscular Hemoglobin 29.7 pg (27.0-31.2); Mean Corpuscular Volume 93.1 fl (81-99); Microscopic, Urine URINE MICROSCOPIC (MICROSCOPIC); Monocytes # 0.5 K/mm3 (0.1-1.0); Monocytes % 16.8 % (1.7-9.3); Neutrophils # 1.2 K/mm3 (1.8-7.8); Nucleated Red Blood Cells # 0 10^3/uL; Nucleated Red Blood Cells % 0 %; Platelet Count 185 K/mm3 (142-424); Red Blood Count 3.47 M/mm3 (4.20-5.40); Red Cell Distribution Width 15.3 % (11.5-17.5); Red Cell Distribution Width-SD 51.8 fL; White Blood Count 3.2 K/mm3 (4.8-10.8)
[2024-05-23 09:09] LABS: Albumin Level 3.8 g/dl (3.5-5.0); Chloride 104 mmol/L (98-107); Potassium 4.5 mmoL/L (3.5-5.1); Sodium 137 mmol/L (136-145)
[2024-05-23 09:12] LABS: Alanine Aminotransferase 32 U/L (12-78); Albumin/Globulin Ratio 1.1 (1.1-1.8); Alkaline Phosphatase 103 U/L (38-126); Anion Gap 12.5 mEq/L (5-15); Aspartate Amino Transferase 42 U/L (14-36); Bilirubin,Total 0.4 mg/dl (0.2-1.3); Blood Urea Nitrogen 20 mg/dl (7-17); Carbon Dioxide 25 mmol/L (22.0-30.0); Creatinine Clearance Estimated 66 mL/min (50-200); Estimated Glomerular Filt Rate 64 ml/min (>60); GFR (African American) 77 ML/MIN (>60); Globulin 3.6 g/dL (1.3-3.2); Glucose 102 mg/dl (74-100); Total Protein,Serum 7.4 g/dl (6.3-8.2)
[2024-05-23 09:13] LABS: Calcium 8.8 mg/dl (8.4-10.2)
[2024-05-23 09:14] LABS: Appearance,Urine CLEAR (Clear); Bilirubin,Urine Negative (Negative); Blood, Urine Negative (Negative); Color,Urine YELLOW (Yellow); Glucose,Urine (UA) Negative (Negative); Ketones,Urine Negative (Negative); Leukocyte Esterase,Urine Negative (Negative); Nitrate,Urine Negative (Negative); Protein,Urine Negative (Negative); Specific Gravity, Urine 1.025 (1.005-1.030); Urobilinogen,Urine 0.2 EU/dl (0.2)
[2024-05-23 09:27] LABS: Bacteria,Urine 2+ /lpf; Squamous Epithelial Cell,Urine 20-50 #/hpf (0-5); WBC,Urine Occasional #/hpf (0-3)
--- NOTE | 2024-05-23 09:58 | PC.NURSE ---
05/23/24 0940 Pt returned from spec clinic appt with md, decision was made to proceed with tx at a 20% dr. Awaiting new md order.
[2024-05-23] MEDS: DEXTROSE 5 % IN WATER 100 ML 25 ML IV (10:30)
[2024-05-23] MEDS: ONDANSETRON 4MG ODT 16 MG SL (10:36)
[2024-05-23] MEDS: DEXAMETHASONE 4MG TABLET 12 MG PO (10:36)
[2024-05-23] MEDS: DEXTROSE 5% IV ×2 (11:07)
[2024-05-23] MEDS: IRINOTECAN HCL IV (11:07)
[2024-05-23] MEDS: WATER IV ×2 (11:07)
[2024-05-23] MEDS: LEUCOVORIN CALCIUM IV (11:07)
[2024-05-23] MEDS: BEVACIZUMAB AWWB IV (13:20)
[2024-05-23] MEDS: SODIUM CHLORIDE 0.9% IV (13:20)
[2024-05-23] MEDS: FLUOROURACIL 500MG/10ML VIAL 550 MG IV (13:56)
== END 2024-05-23 15:08 ==
LOC: INF 08:34
PROVIDERS: PCP Family Medicine; Visit Provider Internal Medicine Medical Oncology
DX: C18.9 Malignant neoplasm of colon, unspecified (principal)
CPT/HCPCS: 80053; 81001; 85025; 87086; 96368; 96411; 96413; 96415; 96417; J0640; J7060; J8540; J9190; J9206; Q0162; Q5107

== ENCOUNTER 2024-05-25 08:22 | Outpatient (CLI) | payer MEDICAID, SELFPAY ==
[2024-05-25] MEDS: SODIUM CHLORIDE 0.9% 10ML FLUSH SYRINGE 10 ML IV (08:32)
== END 2024-05-25 08:42 | disposition home or self-care (01) ==
LOC: INF 08:23
PROVIDERS: PCP Family Medicine; Visit Provider Internal Medicine Medical Oncology
DX: C18.9 Malignant neoplasm of colon, unspecified (principal)
CPT/HCPCS: 96523; J1642

== ENCOUNTER 2024-06-27 09:04 | Outpatient (CLI) | payer MEDICAID, SELFPAY ==
[2024-06-27 09:10] VITALS: BMI 28.5
[2024-06-27 09:24] LABS: Basophils # 0.1 K/mm3 (0-0.2); Basophils % 1.1 % (0.1-2.0); Eosinophils # 0.2 Kmm3 (0.0-0.4); Eosinophils % 5.2 % (0.1-12.0); Hematocrit 32.3 % (37.0-47.0); Hemoglobin 10.4 g/dL (12.2-16.2); Immature Granulocytes # 0.01 10^3uL; Immature Granulocytes % 0.2 %; Lymphocytes # 1.2 K/mm3 (0.7-4.5); Lymphocytes % 27.1 % (10-50); Mean Corpuscular HGB Conc 32.2 g/dL (31.8-35.4); Mean Corpuscular Hemoglobin 30.3 pg (27.0-31.2); Mean Corpuscular Volume 94.2 fl (81-99); Monocytes # 0.5 K/mm3 (0.1-1.0); Monocytes % 11.9 % (1.7-9.3); Neutrophils # 2.4 K/mm3 (1.8-7.8); Neutrophils % 54.5 % (37.0-80.0); Nucleated Red Blood Cells # 0 10^3/uL; Nucleated Red Blood Cells % 0 %; Platelet Count 230 K/mm3 (142-424); Red Blood Count 3.43 M/mm3 (4.20-5.40); Red Cell Distribution Width 15.8 % (11.5-17.5); Red Cell Distribution Width-SD 55.3 fL; White Blood Count 4.5 K/mm3 (4.8-10.8)
[2024-06-27 09:30] LABS: Albumin Level 3.9 g/dl (3.5-5.0); Chloride 108 mmol/L (98-107); Potassium 4.4 mmoL/L (3.5-5.1); Sodium 136 mmol/L (136-145)
[2024-06-27 09:33] LABS: Alanine Aminotransferase 21 U/L (12-78); Albumin/Globulin Ratio 1.2 (1.1-1.8); Alkaline Phosphatase 107 U/L (38-126); Anion Gap 7.4 mEq/L (5-15); Aspartate Amino Transferase 32 U/L (14-36); Bilirubin,Total 0.4 mg/dl (0.2-1.3); Blood Urea Nitrogen 16 mg/dl (7-17); Carbon Dioxide 25 mmol/L (22.0-30.0); Creatinine Clearance Estimated 68 mL/min (50-200); Estimated Glomerular Filt Rate 64 ml/min (>60); GFR (African American) 77 ML/MIN (>60); Globulin 3.3 g/dL (1.3-3.2); Total Protein,Serum 7.2 g/dl (6.3-8.2)
[2024-06-27 09:34] LABS: Calcium 9.1 mg/dl (8.4-10.2); Glucose 111 mg/dl (74-100)
[2024-06-27] MEDS: SODIUM CHLORIDE 0.9% 10ML FLUSH SYRINGE 10 ML IV (10:05)
[2024-06-28 14:47] LABS: CEA 2.6 ng/mL (0.0-4.7)
== END 2024-06-27 10:07 | disposition home or self-care (01) ==
LOC: INF 09:05
PROVIDERS: PCP Family Medicine; Visit Provider Internal Medicine Medical Oncology
DX: C18.9 Malignant neoplasm of colon, unspecified (principal)
CPT/HCPCS: 36591; 80053; 82378; 85025; J1642

== ENCOUNTER 2024-06-30 08:25 | Outpatient (CLI) | payer MEDICAID, SELFPAY ==
--- NOTE | 2024-06-30 08:30 | CT_ITS ---
FINAL REPORT TECHNIQUE: Oral and IV contrast enhanced exam This study was performed with techniques to keep radiation doses as low as reasonably achievable, (ALARA). Individualized dose reduction techniques using automated exposure control or adjustment of mA and/or kV according to the patient''s size were employed. CLINICAL HISTORY: colon cancer COMPARISON: 04/28/2024 FINDINGS: Abdomen: No acute density is seen within the lung bases. The gallbladder is unremarkable. Liver dome lesion is again noted measuring 36 x 32 mm, previously measured 46 x 36 mm and improved. The previously noted adjacent rounded liver lesion has nearly resolved, now measuring 4 mm and previously measured 12 mm. Lesion near the right hepatic vein-IVC confluence now measures 9 mm and previously measured 21 mm. No new liver lesions identified. There is a parapelvic left renal cyst. The remaining solid abdominal organs are unremarkable. No bowel obstruction is present. There is no free air. No fluid collection is seen. There is no mesenteric or retroperitoneal adenopathy. Pelvis: The appendix is normal. There are surgical changes in the distal colon. Left-sided colostomy is noted. There is no free fluid. No pelvic mass is seen or adenopathy. There is a small right inguinal hernia containing fat. IMPRESSION: Improved liver metastases. No new sites of disease. Reviewed, Interpreted and Dictated by Mikey Echevarria MD Transcribed by Ivania Jennings Authenticated and [facility]
[2024-06-30] MEDS: BARIUM SULFATE(READI-CAT2);450ML BOTTLE 450 ML PO (09:06)
[2024-06-30] MEDS: SODIUM CHLORIDE 0.9% 10ML SYR (RAD ONLY) 10 ML IV (09:06)
[2024-06-30] MEDS: IOPAMIDOL-370 (76%);100ML BOTTLE 75 ML IV (09:06)
== END 2024-06-30 23:59 | disposition home or self-care (01) ==
LOC: RAD 08:26
PROVIDERS: PCP Family Medicine; Visit Provider Internal Medicine Medical Oncology
DX: C18.9 Malignant neoplasm of colon, unspecified (principal); C78.7 Secondary malignant neoplasm of liver and intrahepatic bile duct
CPT/HCPCS: 74177; Q9967

== ENCOUNTER 2024-07-04 09:08 | Outpatient (CLI) | payer MEDICAID, SELFPAY ==
[2024-07-04 09:19] VITALS: BMI 28.5
[2024-07-04 09:30] LABS: Microscopic, Urine URINE MICROSCOPIC (MICROSCOPIC)
[2024-07-04 09:33] LABS: Appearance,Urine SL CLOUDY (Clear); Bilirubin,Urine Negative (Negative); Blood, Urine TRACE-L (Negative); Color,Urine YELLOW (Yellow); Glucose,Urine (UA) Negative (Negative); Ketones,Urine Negative (Negative); Leukocyte Esterase,Urine 1+ (Negative); Nitrate,Urine Negative (Negative); Protein,Urine Negative (Negative); Specific Gravity, Urine 1.025 (1.005-1.030); Urobilinogen,Urine 0.2 EU/dl (0.2)
[2024-07-04 09:35] LABS: Basophils % 0.7 % (0.1-2.0); Eosinophils # 0.1 Kmm3 (0.0-0.4); Eosinophils % 2.2 % (0.1-12.0); Hematocrit 34.4 % (37.0-47.0); Hemoglobin 11.1 g/dL (12.2-16.2); Immature Granulocytes # 0.01 10^3uL; Immature Granulocytes % 0.2 %; Lymphocytes # 1.1 K/mm3 (0.7-4.5); Lymphocytes % 25.6 % (10-50); Mean Corpuscular HGB Conc 32.3 g/dL (31.8-35.4); Mean Platelet Volume 9.3 fl (7.4-10.4); Monocytes # 0.4 K/mm3 (0.1-1.0); Monocytes % 10.5 % (1.7-9.3); Neutrophils # 2.5 K/mm3 (1.8-7.8); Neutrophils % 60.8 % (37.0-80.0); Nucleated Red Blood Cells # 0 10^3/uL; Nucleated Red Blood Cells % 0 %; Platelet Count 221 K/mm3 (142-424); Red Cell Distribution Width 15.2 % (11.5-17.5); Red Cell Distribution Width-SD 51.8 fL; White Blood Count 4.1 K/mm3 (4.8-10.8)
[2024-07-04 09:44] LABS: Alanine Aminotransferase 17 U/L (12-78); Albumin Level 4.2 g/dl (3.5-5.0); Albumin/Globulin Ratio 1.3 (1.1-1.8); Alkaline Phosphatase 98 U/L (38-126); Anion Gap 6.9 mEq/L (5-15); Aspartate Amino Transferase 31 U/L (14-36); Bilirubin,Total 0.6 mg/dl (0.2-1.3); Blood Urea Nitrogen 15 mg/dl (7-17); Carbon Dioxide 27 mmol/L (22.0-30.0); Chloride 107 mmol/L (98-107); Creatinine Clearance Estimated 68 mL/min (50-200); Estimated Glomerular Filt Rate 64 ml/min (>60); GFR (African American) 77 ML/MIN (>60); Globulin 3.3 g/dL (1.3-3.2); Glucose 106 mg/dl (74-100); Potassium 3.9 mmoL/L (3.5-5.1); Sodium 137 mmol/L (136-145); Total Protein,Serum 7.5 g/dl (6.3-8.2)
[2024-07-04 09:48] LABS: Bacteria,Urine 2+ /lpf
[2024-07-04] MEDS: SODIUM CHLORIDE 0.9% 10ML FLUSH SYRINGE 10 ML IV (10:26)
== END 2024-07-04 10:28 | disposition home or self-care (01) ==
LOC: INF 09:08
PROVIDERS: PCP Family Medicine; Visit Provider Internal Medicine Medical Oncology
DX: C18.9 Malignant neoplasm of colon, unspecified (principal)
CPT/HCPCS: 36591; 80053; 81001; 85025; 87086; J1642

== ENCOUNTER 2024-07-07 10:29 | Outpatient (CLI) | payer MEDICAID, SELFPAY ==
--- NOTE | 2024-07-07 10:45 | CT_ITS ---
FINAL REPORT TECHNIQUE: Axial images were obtained through the chest without contrast. CLINICAL HISTORY: colon cancer COMPARISON: CTA 04/03/2024 FINDINGS: There is a right upper chest wall port with the tip in the SVC. The ascending aorta measures up to 3.6 cm in diameter. The heart size is normal. There is no pericardial or pleural effusion. Again noted is a tiny nodule in the right middle lung measuring 4 mm, well seen on image 41 of series 2. There are multiple other smaller noncalcified nodules in the periphery of the right lower lobe which are also stable. The previously noted dense airspace infiltrate in the medial lower lobes has resolved, probably related to resolved pneumonia. There is also a noncalcified nodule in the right upper lobe measuring 4 mm on image 19 of series 2 which is stable. Limited images of the upper abdomen demonstrate no acute findings. IMPRESSION: Stable pulmonary nodules. Resolved pneumonia. Reviewed, Interpreted and Dictated by Twan Blood MD Transcribed by Ivania Jennings Authenticated and . [facility]
== END 2024-07-07 23:59 | disposition home or self-care (01) ==
LOC: RAD 10:29
PROVIDERS: PCP Family Medicine; Visit Provider Internal Medicine Medical Oncology
DX: C18.9 Malignant neoplasm of colon, unspecified (principal); R91.8 Other nonspecific abnormal finding of lung field
CPT/HCPCS: 71250

== ENCOUNTER 2024-08-07 16:32 | Outpatient (CLI) | payer MEDICAID, SELFPAY ==
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
--- OUTSIDE RECORDS SUMMARY | 2024-08-07 16:34 | XMS_ITS | Clinical Summary ---
Author Organization [facility] Address [address] [place] [address] Care Team Providers Care Fruit I Farmworker Name Role Phone Monroe Hebert MD Unavailable [phone] Efra Ag DO Primary Care Provider [phone] Allergies No known active allergies Medications capecitabine (Xeloda) 500 MG chemo tablet Take 3 tablets (1,500 mg total) by mouth 2 (two) times a day. Take for 14 days on and 7 days off 4 Active Nutritional Supplements (Boost High Protein) liquid Take 237 mL by mouth 3 (three) times a day. Drink 1 carton 3 times daily. 33293 mL 3 4 Active Additional Information Patient not taking.Reported on 03/23/2024 methocarbamol (Robaxin) 500 MG tablet Take 1 tablet (500 mg) by mouth 3 (three) times a day if needed for muscle spasms. 60 tablet 5 Active Additional Information Patient not taking.Reported on 03/23/2024 rivaroxaban (Xarelto) 10 MG tablet Take 1 tablet (10 mg) by mouth 1 (one) time each day with lunch for 25 doses. 25 tablet 5 Active Active Problems Problem Noted Date Diagnosed Date [...] MARY(cT3, cN0, cM1a) - Signed by Monroe eHbert MD on 02/01/2024 Pathologic stage from 02/18/2024:Stage MARY(ypT3, ypN2a, pM1a) - Signed by Monreo Hebert MD on 03/12/2024 Venous insufficiency (chronic) (peripheral) 10/2023 MILLA (obstructive sleep apnea) 06/17/2023 HLD (hyperlipidemia) 06/17/2023 HTN (hypertension) 06/17/2023 Resolved Problems Problem Noted Date Diagnosed Date Resolved Date Colon cancer metastasized to liver 02/18/2024 03/12/2024 Obesity (BMI 30.0-34.9) 06/17/202307/09 Large bowel obstruction 06/15/202306/08 Encounters Date Type Department Care Team Description 07/07/2024 Orders Only External Location [address] [place] [phone] Provider, External 07/07/2024 Orders Only External Location [address] [place] [phone] Provider, External 06/30/2024 Orders Only External Location [address] [place] [address] Provider, External 06/30/2024 Orders Only External Location [address] [place] [phone] Provider, External from Last 3 Months Immunizations Immunization Administration Dates Next Due Tdap 12/27/2012 Family History Medical History Relation Name Comments Anesthesia problems Neg Hx Malig Hyperthermia Neg Hx Social History Tobacco Use Types Packs/Day Years Used Date Smoking Tobacco: Never Smokeless Tobacco: Never Tobacco Cessation:Counseling Given: Not Answered Alcohol Use Standard Drinks/Week Comments Not Currently 0 (1 standard drink = 0.6 oz pur e alcohol) Humiliation, Afraid, Rape, and Kick questionnair e Answer Date Recorded Within the last year, have y ou been afraid of your partner or ex-partner? No 02/21/2024 Within the last year, have y ou been humiliated or emotionally abused in other ways by your partner or ex-partner? No Within the last year, have y ou been kicked, hit, slapped, or otherwise physically hurt by your partner or ex-partner? No 02/21/2024 Within the last year, have y ou been raped or forced to have any kind of sexual activity by your partner or ex-partner? No 02/21/2024 PHQ-2 Answer Date Recorded Patient Health Questionnaire-2 Score 0 03/23/2024 Hunger Vital Sign Answer Date Recorded Within the past 12 months, y ou worried that your food would run out before you got the money to buy more. Never true 02/20/19 25 Within the past 12 months, t he food you bought just didn't last and you didn't have money to get more. Never true 02/21/2024 PRAPARE - Transportation Answer Date Re corded In the past 12 months, has l ack of transportation kept you from medical appointments or from getting medications? No 02/08 In the past 12 months, has l ack of transportation kept you from meetings, work, or from getting things needed for daily living? No 02/21/2024 Housing Stability Vital Sign Answer Beka e Recorded In the last 12 months, was t here a time when you were not able to pay the mortgage or rent on time? No 06/16/2023 Number of Places Lived in the Last Year Not on f ile 06/16/2023 In the last 12 months, was t here a time when you did not have a steady place to sleep or slept in a alf (including now)? No 06/16/2023 PHQ-9 Answer Date Recorded Patient Health Questionnaire-9 Score 0 03/07/2024 Housing Stability Vital Sign Answer Beka e Recorded In the last 12 months, was t here a time when you were not able to pay the mortgage or rent on time? No 02/21/2024 Number of Times Moved in the Last Year Not on fi le 02/21/2024 At any time in the past 12 m [facility], were you homeless or living in a alf (including now)? No 02/21/2024 Utilities Answer Date Recorded In the past 12 months has th e electric, gas, oil, or water company threatened to shut off services in your home? No 02/21/2024 Comments No Sex and Gender Information Value Date Recorded Sex Assigned at Not on file Legal Sex Female 8:04 PM EDT Gender Identity Not on file Sexual Orientation Not on file Last Filed Vital Signs Vital Sign Reading Time Taken Comments Blood Pressure 114/72 03/23/2024 12:21 PM EST Pulse 83 03/23/2024 12:21 PM EST Temperature 36.7 C (98.1 F) 03/23/2024 12:21 PM EST Respiratory Rate 16 03/23/2024 12:21 PM EST Oxygen Saturation 99% 03/23/2024 12:21 PM EST Inhaled Oxygen Concentration - - Weight 73.3 kg (161 lb 9.6 oz) 03/23/2024 12:21 PM EST Height 157.5 cm (5' 2 ) 03/23/2024 12:21 PM EST Body Mass Index 29.56 03/23/2024 12:21 PM EST Plan of Treatment Upcoming Encounters Date Type Department Care Team ([facility] st Contact Info) Description 08/17/2024 11:00 AM EDT Office Visit [facility] Multidisciplinary Oncology Clinic [address] [place] [phone] Satnam Jensen MD [address] [address] Health Maintenance Due Date Last Done Comments [facility]-HIV Screening 1965 [facility]-Hepatitis C Screening 1965 [facility]-/Child/Adol SDOH Screenings 1965 [facility]-Hepatitis A Vaccines (1 of 2 - Risk 2-dose series) 05/20/1982 [facility]-Pneumococcal Vaccine: 50+ Years (1 of 2 - PCV) 05/20/1982 [facility]-Zoster Vaccines (1 of 2) 05/20/1982 [facility]-Breast Cancer Screening 05/20/2013 [facility]-DTaP,Tdap,and Td Vaccines (2 - Td or Tdap) 12/27/2022 12/27/2012 [facility]-RSV Vaccine: 60+ Years or (1 - Risk 60-74 years 1-dose series) 2023 CCE-CAPLU-63 Vaccine ( - season) 2023 03/19/2021, 06/17/2020, 05/17/2020 [facility]- SDOH Screenings 08/20/2024 [facility]-Adult SDOH Screenings 08/20/2024 02/21/2024 [facility]-Influenza Vaccine (Season Ended) 2024 [facility]-Depression Screening 03/23/2025 03/23/2024, 02/09 Sigmoidoscopy Discontinued 06/17/2023 [facility]-Colorectal Cancer Screening Discontinued [facility]-Obesity Intervention Completed 025, 03/07/2024, 03/07/2024, Additional history exists CT Colonography Discontinued Colonoscopy Discontinued FIT-DNA Discontinued FIT Discontinued FOBT Discontinued HPV Vaccines Aged Out No longer eligi ble based on patient's age to complete this topic [facility]-HIB Vaccines Aged Out No longer e ligible based on patient's age to complete this topic [facility]-IPV Vaccines Aged Out No longer e ligible based on patient's age to complete this topic [facility]-Rotavirus Vaccines Aged Out No lo nger eligible based on patient's age to complete this topic Medical Devices Implanted Type Area Criminal Investigator Customs Device Identifier Shelf Expiration Date Model / Serial / Lot Port Clearvue Power 8fr - [id number] Implanted:Qty : 1 on 06/25/2023 by Satnam Jensen MD at [facility] Other Medication Pump [id number] 10/08/2024 [id number] / / [id number] Procedures Procedure Name Priority Date/Time Associated Diagnosis Comments CT THORACIC OUTSIDE IMAGES 07/07/2024 10:[address] THORACIC OUTSIDE IMAGES 07/07/2024 10:[address] MSK OUTSIDE IMAGES 06/30/2024 8:[address] MSK OUTSIDE IMAGES 06/30/2024 8:54 AM EDT FLEXIBLE SIGMOIDOSCOPY Routine 8:59 AM EDT Large bowel obstruction (CMS/HCC) from Last 3 Months or Most Recently Relevant to Health Maintenance Results * CT THORACIC OUTSIDE IMAGES (07/07/2024 10:35 AM EDT) Only the most recent of2 resultswithin the time period is included. Anatomical Region Laterality Modality Computed Tomogra phy 07/07/2024 10:3 5 AM EDT us External Provider IMG CT PROCEDURES Final Result * CT MSK OUTSIDE IMAGES (06/30/2024 8:54 AM EDT) Only the most recent of2 resultswithin the time period is included. Anatomical Region Laterality Modality Computed Tomogra phy 06/30/2024 8:54 AM EDT us External Provider IMG CT PROCEDURES Final Result * Flexible Sigmoidoscopy (06/17/2023 8:59 AM EDT) Anatomical Region Laterality Modality Endoscopy Narrative 06/17/2023 9:12 AM EDT Table formatting from the original result was not included. Impression: Single malignant-appearing, friable, fungating, invasive and ulcerated mass (not traversable) in the sigmoid colon 15 cm from the anal verge; performed cold forceps biopsy The mass was circumferential and completely obstructed the lumen. The therapeutic gastroscope was exchanged for an XP gastroscope and this too was unable to traverse the mass. Finally, a 0.035 x 450 cm straight-tip and a 0.035 x 450 cm angled-tip VisiGlide 2 guidewire were loaded onto an Olympus multi-sized extraction balloon. There were used to try to pass the mass under fluoroscopic guidance but, despite multiple attempts and over an hour of endoscopy, the mass was never able to be traversed with the wire. Recommendations Other Await pathology results Return to previous room and level of care Will likely require surgical diversion Will continue to follow along with you Indication Large bowel obstruction (CMS/HCC) Medications See anesthesia record for anesthesia administered medications. Staff Staff Role Raissa Brownlee RN Endo Nurse Cornelio Sparrow MD Proceduralist Cristofer Meyers Endo Cloth Finishing Range Operator Chief Twan Fitzgerald MD Anesthesiologist Wyatt Valdovinos, CASH POSTING SPECIALIST, HUY CASH POSTING SPECIALIST Preprocedure A history and physical has been performed, and patient medication allergies have been reviewed. The patient's tolerance of previous anesthesia has been reviewed. The risks and benefits of the procedure and the sedation options and risks were discussed with the patient. All questions were answered and informed consent obtained. Details of the Procedure The patient underwent general anesthesia, which was administered by an anesthesia professional. The patient's blood pressure, heart rate, level of consciousness, oxygen and respirations were monitored throughout the procedure. A digital rectal exam was performed. The scope was advanced to the rectosigmoid. The quality of bowel preparation was evaluated using the [place] Bowel Preparation Scale with scores of: right colon = not assessed, transverse colon = not assessed, left colon = 1. Bowel prep was not adequate. The patient's estimated blood loss was minimal (<5 mL). The procedure was not difficult. The patient tolerated the procedure well. The total BBPS score was 1. Attestation I personally performed the entire procedure Specimens ID Type Source Tests Collected by Time A : sigmoid mass biopsies Tissue Sigmoid Colon SURGICAL PATHOLOGY EXAM Cornelio Sparrow MD 06/17/2023 0807 Findings Single malignant-appearing, friable, fungating, invasive and ulcerated mass (not traversable) in the sigmoid colon 15 cm from the anal verge; performed cold forceps biopsy The mass was circumferential and completely obstructed the lumen. The therapeutic gastroscope was exchanged for an XP gastroscope and this too was unable to traverse the mass. Finally, a 0.035 x 450 cm straight-tip and a 0.035 x 450 cm angled-tip VisiGlide 2 guidewire were loaded onto an Olympus multi-sized extraction balloon. There were used to try to pass the mass under fluoroscopic guidance but, despite multiple attempts and over an hour of endoscopy, the mass was never able to be traversed with the wire. Monroe Hebert MD GI PROCEDURE ORDERABLES Final Result from Last 3 Months or Most Recently Relevant to Health Maintenance Insurance [employer] Advance Directives * Full Code (Latest Code Status on File) Date Activated Date Inactivated Comments 02/18/2024 4:25 PM 02/22/2024 5:16 PM Question Answer Comments Patient has decision-making capacity? Yes * Full Code Date Activated Date Inactivated Comments 06/15/2023 9:26 PM 06/26/2023 5:36 PM Question Answer Comments Patient has decision-making capacity? Yes Care Teams Fruit I Farmworker Relationship Specialty Start Date End Date Efra Ag DO [address] [place] [address] PCP - General 02/18/24 Monroe Hebert MD [id number] [place] [phone] Surgeon Colon and Rectal Surgery 08/06/23
--- OUTSIDE RECORDS SUMMARY | 2024-08-07 16:34 | XMS_ITS | Encounter Summary ---
Author Organization Healthcare Address [address] [id number] Care Team Providers Care Multifocal Button Generator Name Role Phone Monroe Hebert MD Unavailable [phone] Efra Ag DO Primary Care Provider [phone] Encounter Details Date Type Department Care Team (Late st Contact Info) Description 07/07/2024 Orders Only External Location [address] [place] [address] Provider, External Social History Tobacco Use Types Packs/Day Years Used Date Smoking Tobacco: Never Smokeless Tobacco: Never Alcohol Use Standard Drinks/Week Comments Not Currently [...] place to sleep or slept in a intermediate (including now)? No 06/16/2023 PHQ-9 Answer Date [...] any time in the past 12 m [facility], were you homeless or living in a intermediate (including now)? No 02/21/2024 Utilities Answer Date Recorded In the past 12 months has th e electric, gas, oil, or water company threatened to shut off services in your home? No 02/21/2024 Comments No Sex and Gender Information Value Date Recorded Sex Assigned at Not on file Legal Sex Female 8:04 PM EDT Gender Identity Not on file Sexual Orientation Not on file documented as of this encounter Plan of Treatment Upcoming Encounters Date Type Department Care Team (Late st Contact Info) Description 08/17/2024 11:00 AM EDT Office Visit [facility] Multidisciplinary Oncology Clinic [address] [place] [address] Satnam Jensen MD [address] [address] documented as of this encounter Procedures Procedure Name Priority Date/Time Associated Diagnosis Comments CT THORACIC OUTSIDE IMAGES 07/07/2024 10:35 AM EDT documented in this encounter Results * CT THORACIC OUTSIDE IMAGES (07/07/2024 10:35 AM EDT) Anatomical Region Laterality Modality Computed Tomogra phy 07/07/2024 10:3 5 AM EDT us External Provider IMG CT PROCEDURES Final Result documented in this encounter Visit Diagnoses Not on filedocumented in this encounter Additional Health Concerns Assessment Noted Time PHQ-9 Depression Total Score: 0 03/07/19 25 2:59 PM EST A fall risk assessment has been complete d for the patient 03/23/2024 12:30 PM EST A Body Mass Index follow-up plan has been documented for the patient 03/29/2024 12:50 PM EST documented as of this encounter Care Teams Multifocal Button Generator Relationship Specialty Start Date End Date Efra Ag DO [address] [place] [address] PCP - General 02/18/24 Monroe Hebert MD [address] [place] [address] Surgeon Colon and Rectal Surgery 08/06/23 documented as of this encounter
--- OUTSIDE RECORDS SUMMARY | 2024-08-07 16:34 | XMS_ITS | Encounter Summary ---
Author Organization Healthcare Address [address] [id number] Care Team Providers Care Artist'S Manager Name Role Phone Monroe Hebert MD Unavailable [phone] Efra Ag DO Primary Care Provider [phone] Encounter Details Date Type Department Care Team (Late st Contact Info) Description 06/30/2024 Orders Only External Location [address] [place] [address] Provider, External Social History Tobacco Use Types [...] place to sleep or slept in a fpc (including now)? No 06/16/2023 PHQ-9 Answer Date [...] any time in the past 12 m [facility], were you homeless or living in a fpc (including now)? No 02/21/2024 Utilities Answer Date [...] Description 08/17/2024 11:00 AM EDT Office Visit [facility] Multidisciplinary Oncology Clinic [address] [place] [address] Satnam Jensen MD [address] [address] documented as of this encounter Procedures Procedure Name Priority Date/Time Associated Diagnosis Comments CT MSK OUTSIDE IMAGES 06/30/2024 8:54 AM EDT documented in this encounter Results * CT MSK OUTSIDE IMAGES (06/30/2024 8:54 AM EDT) Anatomical Region Laterality Modality Computed Tomogra phy 06/30/2024 8:54 AM EDT External Provider IMG CT PROCEDURES Final Result [...] documented as of this encounter Care Teams Artist'S Manager Relationship Specialty Start Date End Date Efra Ag DO [address] [place] [address] PCP - General 02/18/24 Monroe Hebert MD [address] [facility] [address] [place] [address] Surgeon Colon and Rectal Surgery 08/06/23 documented as of this encounter
--- OUTSIDE RECORDS SUMMARY | 2024-08-07 16:34 | XMS_ITS | Encounter Summary ---
Author Organization Healthcare Address [address] [id number] Care Team Providers Care Marriage Therapist Name Role Phone Monroe Hebert MD Unavailable [phone] Efra Ag DO Primary Care Provider [phone] Encounter Details Date Type Department Care Team (Late st Contact Info) Description 03/15/2024 Lab Requisition [facility] [address] [place] [address] Mendoza Marlow MD [address] [place] [phone] Malignant neoplasm of colon, unspecified (CMS/HCC) Social History Tobacco Use Types Packs/Day Years [...] Date Recorded Patient Health Questionnaire-2 Score 0 03/07/2024 Hunger Vital Sign Answer Date Recorded Within [...] place to sleep or slept in a fci (including now)? No 06/16/2023 PHQ-9 Answer Date [...] any time in the past 12 m [facility], were you homeless or living in a fci (including now)? No 02/21/2024 Utilities Answer Date [...] Description 08/17/2024 11:00 AM EDT Office Visit [facility] Multidisciplinary Oncology Clinic [address] [place] [address] Satnam Jensen MD [address] [address] documented as of this encounter Procedures Procedure Name Priority Date/Time Associated Diagnosis Comments AP MISCELLANEOUS LAB TEST (SO) Routine 03/15/2024 12:00 AM EST Malignant neoplasm of colon, unspecified (CMS/HCC) documented in this encounter Results * - AP Miscellaneous Test (03/15/2024 12:00 AM EST) Test name CA Profile-Ca ris 04/03/2024 9:[address] [facility] Comment:[id number]# [id number] Test Result see scan 04/03/2024 9:42 AM EST [facility] See Scanned Result 04/03/2024 9:42 AM EST [facility] Tissue 03/15/2024 03/15/2024 10: 28 AM EST us Mendoza Marlow MD LAB REF LAB BLOOD AND FLUID ORD Final Result [facility] [address] [place] [address] documented in this encounter Visit Diagnoses Diagnosis Malignant neoplasm of colon, unspecified (CMS/HCC) documented in this encounter Additional Health Concerns Assessment Noted Time PHQ-9 Depression Total Score: 0 03/07/19 25 2:59 PM EST A fall risk assessment has been complete d for the patient 03/07/2024 2:59 PM EST A Body Mass Index follow-up plan has been documented for the patient 03/12/2024 2:23 PM EST documented as of this encounter Care Teams Marriage Therapist Relationship Specialty Start Date End Date Efra Ag DO [address] [place] [address] PCP - General 02/18/24 Monroe Hebert MD [id number] [place] [phone] Surgeon Colon and Rectal Surgery 08/06/23 documented as of this encounter
--- OUTSIDE RECORDS SUMMARY | 2024-08-07 16:34 | XMS_ITS | Encounter Summary ---
Author Organization Healthcare Address [address] [id number] Care Team Providers Care Chalk Cutter Name Role Phone Monroe Hebert MD Unavailable [phone] Efra Ag DO Primary Care Provider [phone] Encounter Details Date Type Department Care Team (Late st Contact Info) Description 06/30/2024 Orders Only External Location [address] [place] [address] Provider, External Social History Tobacco Use Types [...] place to sleep or slept in a usp (including now)? No 06/16/2023 PHQ-9 Answer Date [...] any time in the past 12 m [facility], were you homeless or living in a usp (including now)? No 02/21/2024 Utilities Answer Date [...] [facility] Multidisciplinary Oncology Clinic [address] [place] [address] Satnam Jensen MD [address] [address] documented as of this encounter Procedures Procedure [...] documented as of this encounter Care Teams Chalk Cutter Relationship Specialty Start Date End Date Efra Ag DO [address] [place] [address] PCP - General 02/18/24 Monroe Hebert MD [address] [facility] [address] [place] [address] Surgeon Colon and Rectal Surgery 08/06/23 documented as of this encounter
--- OUTSIDE RECORDS SUMMARY | 2024-08-07 16:34 | XMS_ITS | Encounter Summary ---
Author Organization Healthcare Address [address] [id number] Care Team Providers Care Recycling Tech Name Role Phone Monroe Hebert MD Unavailable [phone] Efra Ag DO Primary Care Provider [phone] Encounter Details Date Type Department Care Team (Late st Contact Info) Description 07/07/2024 Orders Only External Location [address] [place] [address] Provider, External Social History Tobacco Use Types [...] place to sleep or slept in a assisted (including now)? No 06/16/2023 PHQ-9 Answer Date [...] any time in the past 12 m [facility], were you homeless or living in a assisted (including now)? No 02/21/2024 Utilities Answer Date [...] Description 08/17/2024 11:00 AM EDT Office Visit [facility] Multidisciplinary Oncology Clinic [address] [place] [address] Satnam Jensen MD [address] [address] documented as of this encounter Procedures Procedure [...] documented as of this encounter Care Teams Recycling Tech Relationship Specialty Start Date End Date Efra Ag DO [address] [place] [address] PCP - General 02/18/24 Monroe Hebert MD [address] [place] [address] Surgeon Colon and Rectal Surgery 08/06/23 documented as of this encounter
--- NOTE | 2024-08-07 17:00 | MM_ITS ---
PROCEDURE INFORMATION: Exam: MG Bilateral Screening 3D Mammography Exam date and time: 08/07/2024 4:42 PM Age: 59 years old Clinical indication: Screening examination TECHNIQUE: Imaging protocol: Bilateral Screening tomosynthesis and 2D mammography including computer-aided detection (CAD) when performed. COMPARISON: 1. MG MM DIG SCREENING MAMM BI W/CAD 08/05/2023 1:30 PM 2. MG MM DIG SCREENING MAMM BI W/CAD 02/05/2022 2:58 PM FINDINGS: MAMMOGRAPHY: Breast composition: There are scattered areas of fibroglandular density. Mass: No suspicious masses. Architectural distortion: None. Calcifications: No suspicious calcifications. Asymmetric density: None. Skin thickening: None. Axillary adenopathy: None. IMPRESSION: No mammographic evidence of malignancy. Annual screening is recommended unless otherwise clinically indicated. ASSESSMENT: BI-RADS Category 1: Negative.
== END 2024-08-07 23:59 | disposition home or self-care (01) ==
LOC: RAD 16:33
PROVIDERS: PCP Family Medicine; Visit Provider Family Medicine
DX: Z12.31 Encounter for screening mammogram for malignant neoplasm of breast (principal); R92.323 Mammographic fibroglandular density, bilateral breasts
CPT/HCPCS: 77063; 77067